=== PATIENT | male | born 1960 | race Caucasian/White ===

== ENCOUNTER 2017-09-07 12:03 | Day surgery (SDC) | payer BC ==
[~2017-09-07] VITALS: Ht 171.4 cm; Wt 98.2 kg
[~2017-09-07 12:03] MED LIST: ADVIL200 MG PO; ANORO ELLIPTA1 EACH INH; CYCLOBENZAPRINE10 MG PO; METAMUCIL1042 GM PO; NORVASC10 MG PO; OMEPRAZOLE40 MG PO; PRAVACHOL20 MG PO; SINGULAIR10 MG PO; ZESTRIL40 MG PO
[2017-09-07] MEDS ORDERED: CORDARONE200 MG PO (12:53)
[2017-09-07] MEDS ORDERED: PLAVIX75 MG PO (12:56)
[2017-09-07] MEDS ORDERED: BAYER CHEWABLE81 MG PO (12:56)
[2017-09-07] MEDS ORDERED: HYDROCHLOROTHIA25 MG PO (12:57)
[2017-09-07] MEDS ORDERED: METOPROLOL TART25 MG PO (12:57)
[2017-09-07] MEDS ORDERED: COUMADIN5 MG PO ×2 (12:58→12:59)
[2017-09-07] MEDS ORDERED: LOVENOX INJ100 MG/ML SC (13:01)
[2017-09-07 13:14] VITALS: BP 95/52; Ht 171.4 cm; Wt 98.2 kg
[2017-09-07 13:18] LABS: HEMATOCRIT 36.4 % (42.0-54.0); HEMOGLOBIN 12.2 g/dL (13.5-17.5); MCH 30.3 pg (26.0-34.0); MCHC 33.5 g/dL (31.0-37.0); MCV 90.3 fL (80.0-100.0); MEAN PLATELET VOLUME 9.3 fL (7.4-10.4); RBC 4.03 10x6/uL (4.20-6.10); RDW 13.2 % (11.5-14.5); WBC 7.1 10x3/uL (4.8-10.8)
[2017-09-07 13:32] LABS: APTT 32.7 SECONDS (22.8-39.4); INR 1.1 (0.85-1.17); PROTIME 14.1 SECONDS (11.6-15.0)
[2017-09-07 13:44] LABS: ANION GAP 11.5 mmol/L (8-16); CALCIUM 8.8 mg/dL (8.5-10.1); CARBON DIOXIDE 26.5 mmol/L (21.0-32.0); CREATININE - SERUM 1.4 mg/dL (0.6-1.3)
--- NOTE | 2017-09-07 14:50 | NUR ---
9 MINUTE WITHDRAWEL TIME.
--- NOTE | 2017-09-07 15:37 | NUR ---
1535 DISCHARGE INSTRUCTIONS COMPLETE. PT HAS NO QUESTIONS OR CONCERNS AT THIS TIME. PT ESCORTED OUT BY VOLUNTEER.
--- NOTE | 2017-09-08 07:24 | OP ---
PATIENT NAME: DAISHA MEYER MEDICAL RECORD: [id number] :56 LOCATION:[facility] ADMISSION DATE: SURGEON: ENEDINA ONTIVEROS DO DATE OF OPERATION: 09/07/2017 PROCEDURE: Colonoscopy. INDICATIONS FOR PROCEDURE: Colorectal cancer screening. SCOPE: Olympus video pediatric colonoscope. MEDICATIONS: Propofol 210 mg IV per anesthesia. WITHDRAWAL TIME: 9 minutes. ESTIMATED BLOOD LOSS: None. COMPLICATIONS: None. FINDINGS: Informed consent was given. The patient was made comfortable with the above medication. After reaching an adequate level of sedation by slow IV push, the patient was placed on his left side. A digital rectal examination was performed and revealed some small external hemorrhoids and a skin tag without any bleeding visualized. The endoscope was then advanced under direct visualization through the rectum to the cecum with visualization of the appendiceal orifice and ileocecal valve. There were no polyps visualized on today's examination. There was rybh-ue-rtmhlkxh diverticulosis present in the descending colon and sigmoid colon. There was no evidence of diverticulitis or bleeding. Retroflexion was performed in the rectum with visualization of small nonbleeding internal hemorrhoids and hypertrophied anal papillae. The endoscope was un-retroflexed and withdrawn from the patient. The patient tolerated the procedure well and there were no complications. IMPRESSION: 1. Mild to moderate diverticulosis of the descending and sigmoid colon. 2. Small nonbleeding internal hemorrhoids. PLAN AND RECOMMENDATIONS: 1. Discharge home when recovery parameters are met. 2. Continue current medications. 3. High fiber diet. 4. Recall colonoscopy in 7-10 years. TRANSINT:[id number] Voice Confirmation ID: [id number] DOCUMENT ID: [id number] ENEDINA ONTIVEROS DO at 0724 CC: [id number] DICTATION DATE: 09/07/17 1454 DIRECTOR INVESTOR RELATIONS: 09/07/17 1510 [facility] 09/07/17 [id number] [place] [address]
== END 2017-09-07 15:35 | disposition home or self-care (01) ==
LOC: D.OPS 12:03
PROVIDERS: Anesthesiology; Internal Medicine Gastroenterology
DX: Z12.11 Encounter for screening for malignant neoplasm of colon (principal); K57.30 Diverticulosis of large intestine without perforation or abscess without bleeding; K64.8 Other hemorrhoids; K64.4 Residual hemorrhoidal skin tags; Z01.812 Encounter for preprocedural laboratory examination

== ENCOUNTER → 2018-09-29 07:49 | Outpatient (CLI) | payer MEDICAID ==
[2017-09-07 13:14] VITALS: BMI 33.4
[~2018-09-29 07:49] MED LIST changes: +BAYER CHEWABLE81 MG PO; +CORDARONE200 MG PO; +COUMADIN5 MG PO; +HYDROCHLOROTHIA25 MG PO; +LOVENOX INJ100 MG/ML SC; +METOPROLOL TART25 MG PO; +PLAVIX75 MG PO
== END | disposition home or self-care (01) ==
LOC: D.US 07:49
DX: R79.89 Other specified abnormal findings of blood chemistry (principal)

== ENCOUNTER 2018-12-05 17:04 | Emergency (ER) | payer MEDICAID ==
[~2018-12-05] VITALS: Ht 171.4 cm; Wt 93.6 kg
[2018-12-05 17:36] VITALS: Ht 171.4 cm; Wt 93.6 kg
[2018-12-05] MEDS ORDERED: LIPITOR40 MG PO (17:39)
[2018-12-05 18:29] LABS: BASOPHILS 0.3 % (0-2); EOSINOPHILS 1.5 % (0-7); HEMATOCRIT 37.6 % (42.0-54.0); HEMOGLOBIN 12.9 g/dL (13.5-17.5); IMMATURE GRANULOCYTES 0.3 % (0-5); LYMPHOCYTES 22.3 % (15-50); MCH 30.9 pg (26.0-34.0); MCHC 34.3 g/dL (31.0-37.0); MEAN PLATELET VOLUME 9.4 fL (7.4-10.4); MONOCYTES 9.5 % (2-11); NEUTROPHILS 66.1 % (40-80); PLATELET COUNT 245 10x3/uL (130-400); RBC 4.18 10x6/uL (4.20-6.10); RDW 12.9 % (11.5-14.5); WBC 8.9 10x3/uL (4.8-10.8)
[2018-12-05 18:39] LABS: APTT 43.9 SECONDS (22.8-39.4); INR 2.78 (0.85-1.17); PROTIME 28.6 SECONDS (11.6-15.0)
[2018-12-05 18:47] LABS: ALBUMIN 2.9 g/dL (3.4-5.0); ALKALINE PHOSPHATASE 104 U/L (46-116); ALT (SGPT) 208 U/L (10-68); BILIRUBIN - TOTAL 0.48 mg/dL (0.2-1.3); CALC OSMOLALITY 273 mosm/kg (275-300); CALCIUM 8.4 mg/dL (8.5-10.1); CARBON DIOXIDE 24.2 mmol/L (21.0-32.0); CHLORIDE - SERUM 100 mmol/L (98-107); CREATININE - SERUM 2.1 mg/dL (0.6-1.3); GLUCOSE 95 mg/dL (74-106); POTASSIUM - SERUM 4.3 mmol/L (3.5-5.1); PROTEIN - SERUM 7.5 g/dL (6.4-8.2); SODIUM 134 mmol/L (136-145); UREA NITROGEN 30 mg/dL (7-18); eGFR NON AFRICAN AMERICAN 34 mL/min (90-120)
[2018-12-05 18:59] LABS: CREATINE KINASE 127 UL (21-232)
[2018-12-05 19:01] LABS: TROPONIN-I < 0.017 ng/mL (0.000-0.060)
[2018-12-05 20:44] VITALS: BP 105/65
== END 2018-12-05 20:45 | disposition home or self-care (01) ==
LOC: D.ER 17:04
PROVIDERS: Family Medicine
DX: I95.2 Hypotension due to drugs (principal); N17.9 Acute kidney failure, unspecified; I25.10 Atherosclerotic heart disease of native coronary artery without angina pectoris; I48.2 Chronic atrial fibrillation

== ENCOUNTER → 2019-02-23 08:09 | Outpatient (CLI) | payer BC ==
[2018-12-05 17:36] VITALS: BMI 31.8
--- NOTE | ~2019-02-23 | EC ---
PATIENT:DAISHA MEYER DATE OF SERVICE: 02/23/19 SEX: M MEDICAL RECORD: [id number] DATE OF : 56 LOCATION:[facility] AGE OF PATIENT: 58 ADMISSION DATE: 02/23/19 REFERRING PHYSICIAN: INTERPRETING PHYSICIAN: LUCINA ROWAN MD ECHOCARDIOGRAM REPORT ECHO CHARGES 4 ECHO COMPLETE Date: 02/23/19 CLINICAL DIAGNOSIS: HTN/AVR H/O CAD/A-FIB ECHOCARDIOGRAPHIC MEASUREMENTS (adult normal given) AC root (d.<3.7cm) 2.9 cm LV Septum d (<1.2 cm> 1.0 cm Valve Excursion 0.9 cm LV Septum (systole) 1.9 cm Left Atria (s.<4.0cm> 4.2 cm LVPW d(<1.2cm) 1.4 cm RV (d.<2.3cm) 3.2 cm LVPW (sytole) 2.3 cm LV diastole(<5.6CM) 6.0 cm MV E-F(>70mm/sec) cm LV systole 3.5 cm LVOT Diameter 2.0 cm MV exc.(>10mm) cm Est.ejection fraction (50-75%) % DOPPLER: LVIT cm/sec A 56.0 cm/sec E 64.0 cm/sec LA cm/sec RVSP 34.4 mmHg LVOT 105 cm/sec AOP1/2T m/s Asc. Ao 212 cm/sec RVOT 48.0 cm/sec RA cm/sec PA 113 cm/sec AV Gradient Peak 18.0 mmHg AV Mean 7.8 mmHg AV Area 1.6 cm MV Gradient Peak 2.2 mmHg MV Mean 0.87 mmHg MV Area cm COMMENTS: OP - HC Medicaid Nurse: 1 RAMIN ELIO Attendant Honor Bar: 3 Dr. Bond TAPE# PACS Pericardial Effusion N DATE OF SERVICE: 02/23/2019 Adequate 2-D echo, color-flow and spectral Doppler, and M-mode. No LVH. LV internal dimensions are dilated. LV is mildly globally hypo with EF at lower limits of normal, mildly reduced. Estimated EF is 45% to 50%. Prosthetic aortic valve, mechanical type, is noted with acceptable Doppler velocity. No significant AI by color-flow imaging. Left atrium is minimally dilated at 4.2 cm. Mitral valve shows no prolapse. Trace MR. Right-sided chambers are grossly normal. Trace TR. ECHOCARDIOGRAM REPORT [id number] DAISHA MEYER TRANSINT:[id number] Voice Confirmation ID: [id number] DOCUMENT ID: [id number] LUCINA ROWAN MD CC: [id number] DICTATION DATE: 02/27/19 1313 PAI GOW MANAGER: 02/27/19 1342 DEP CLI 02/23/19 [facility] [address] [id number]
[~2019-02-23 08:09] MED LIST changes: +LIPITOR40 MG PO
== END | disposition home or self-care (01) ==
LOC: D.HCCARDIO 08:09
PROVIDERS: ATTEND Internal Medicine Interventional Cardiology
DX: I10 Essential (primary) hypertension (principal)

== ENCOUNTER 2019-04-02 06:20 | Outpatient (CLI) | payer MEDICAID ==
[2019-04-02 06:49] LABS: BASOPHILS 0.5 % (0-2); EOSINOPHILS 0.8 % (0-7); HEMOGLOBIN 14.4 g/dL (13.5-17.5); LYMPHOCYTES 16.5 % (15-50); MCH 30.2 pg (26.0-34.0); MCHC 34.3 g/dL (31.0-37.0); MCV 88.1 fL (80.0-100.0); MEAN PLATELET VOLUME 9.3 fL (7.4-10.4); MONOCYTES 10.2 % (2-11); RBC 4.77 10x6/uL (4.20-6.10); WBC 6.4 10x3/uL (4.8-10.8)
[2019-04-02 06:58] LABS: CALC OSMOLALITY 274 mosm/kg (275-300); CALCIUM 8.8 mg/dL (8.5-10.1); CARBON DIOXIDE 26.3 mmol/L (21.0-32.0); CHLORIDE - SERUM 104 mmol/L (98-107); GLUCOSE 102 mg/dL (74-106); PLATELET COUNT 135 10x3/uL (130-400); SODIUM 137 mmol/L (136-145); UREA NITROGEN 15 mg/dL (7-18); eGFR NON AFRICAN AMERICAN 81 mL/min (90-120)
[2019-04-02 07:39] LABS: APTT 39.5 SECONDS (22.8-39.4); INR 1.4 (0.85-1.17); PROTIME 16.6 SECONDS (11.6-15.0)
[2019-04-02 10:27] VITALS: BP 144/71; BMI 30.4
--- NOTE | 2019-04-02 16:00 | NUR ---
1210-RECD FROM IR POST LIVER BIOPSY. ALERT. RESP WITH EASE, DRESSING TO R RIB CAGE AREA DRY AND INTACT-NO BLEEDING OR SWELLING 1215-DOES NOT WANT LUNCH TRAY-JUST SOME SPRITE, GIVEN 1255-R ABD DRSG DRY AND INTACT. 1530-IV D/C, UP TO BATHROOM AND DRESSED 1540-DISCHARGE INSTRUCTIONS REVIEWED. 1545-D/C HOME VIA WHEELCHAIR.
== END 2019-04-02 15:45 | disposition home or self-care (01) ==
LOC: D.CT 06:20
PROVIDERS: General Practice; ATTEND Internal Medicine Gastroenterology
DX: K74.60 Unspecified cirrhosis of liver (principal); G12.9 Spinal muscular atrophy, unspecified; R63.4 Abnormal weight loss

== ENCOUNTER → 2019-04-16 18:28 | Outpatient (CLI) | payer MEDICAID ==
[2019-04-02 10:27] VITALS: BMI 30.4
[2019-04-16 18:06] LABS: ALBUMIN 2.7 g/dL (3.4-5.0); BILIRUBIN - DIRECT 0.25 mg/dL (0.00-0.30); BILIRUBIN - INDIRECT 0.47 mg/dL (0.00-1.00); BILIRUBIN - TOTAL 0.72 mg/dL (0.2-1.3); PROTEIN - SERUM 8.1 g/dL (6.4-8.2)
== END | disposition home or self-care (01) ==
LOC: D.LABREF 18:28
PROVIDERS: ATTEND Internal Medicine Gastroenterology
DX: K74.60 Unspecified cirrhosis of liver (principal); R63.4 Abnormal weight loss

== ENCOUNTER → 2019-04-24 10:09 | Outpatient (CLI) | payer MEDICAID ==
[2019-04-02 10:27] VITALS: BMI 30.4
== END | disposition home or self-care (01) ==
LOC: D.LAB 10:09
PROVIDERS: ATTEND Internal Medicine Gastroenterology
DX: K74.60 Unspecified cirrhosis of liver (principal); R74.8 Abnormal levels of other serum enzymes

== ENCOUNTER → 2019-06-04 10:07 | Outpatient (CLI) | payer MEDICAID ==
[2019-06-05 13:10] LABS: CYTOMEGALOVIRUS AB IGG >10.00 U/mL (0.00-0.59)
[2019-06-05 16:08] LABS: EBV - EARLY ANTIGEN AB IGG <9.0 U/mL (0.0-8.9); EBV VIRAL CAPSID AB IGM 39.5 U/mL (0.0-35.9)
[2019-06-06 16:09] LABS: HSV 1 DNA (PCR) Negative (Negative); HSV 2 DNA (PCR) Negative (Negative)
== END | disposition home or self-care (01) ==
LOC: D.LAB 10:07
PROVIDERS: ATTEND Internal Medicine Gastroenterology
DX: K74.60 Unspecified cirrhosis of liver (principal)

== ENCOUNTER 2019-09-26 18:08 | Inpatient (IN) | payer MEDICAID ==
[~2019-09-26] VITALS: Ht 171.4 cm; Wt 88.5 kg
[2019-09-26] MEDS ORDERED: CORGARD40 MG PO (19:56)
[2019-09-26] MEDS ORDERED: CYCLOBENZAPRINE10 MG PO (19:58)
[2019-09-26] MEDS ORDERED: CHRONULAC30 ML PO (19:59)
[2019-09-26 20:29] LABS: HEMATOCRIT 36.5 % (42.0-54.0); HEMOGLOBIN 12.5 g/dL (13.5-17.5); MCH 31.3 pg (26.0-34.0); MCHC 34.2 g/dL (31.0-37.0); MCV 91.5 fL (80.0-100.0); MEAN PLATELET VOLUME 9.5 fL (7.4-10.4); NEUTROPHILS 74.5 % (40-80); PLATELET COUNT 119 10x3/uL (130-400); RBC 3.99 10x6/uL (4.20-6.10); RDW 14.5 % (11.5-14.5); WBC 10.1 10x3/uL (4.8-10.8)
[2019-09-26 20:46] LABS: INR 2.9 (0.85-1.17); PROTIME 29.6 SECONDS (11.6-15.0)
[2019-09-26 20:47] LABS: APTT 52.4 SECONDS (22.8-39.4)
[2019-09-26 20:54] LABS: CALC OSMOLALITY 269 mosm/kg (275-300); CALCIUM 8.3 mg/dL (8.5-10.1); CARBON DIOXIDE 26.3 mmol/L (21.0-32.0); CHLORIDE - SERUM 103 mmol/L (98-107); CREATININE - SERUM 0.7 mg/dL (0.6-1.3); GLUCOSE 93 mg/dL (74-106); POTASSIUM - SERUM 4.4 mmol/L (3.5-5.1); SODIUM 135 mmol/L (136-145); UREA NITROGEN 13 mg/dL (7-18); eGFR NON AFRICAN AMERICAN > 90 mL/min (90-120)
[2019-09-26 21:00] LABS: ALBUMIN 2.1 g/dL (3.4-5.0); ALKALINE PHOSPHATASE 113 U/L (46-116); ALT (SGPT) 57 U/L (10-68); PROTEIN - SERUM 7.5 g/dL (6.4-8.2)
[2019-09-26 22:31] VITALS: BP 136/67
[2019-09-27] VITALS: BP 140/62
[2019-09-27 00:23] VITALS: BP 140/62; BMI 27.8
--- NOTE | 2019-09-27 00:31 | NUR ---
UNABLE TO REVIEW MED REC. PT IS UNSURE ON ALL HIS DOSAGES OF MEDICATIONS. HIS TOOK HIS MED LIST HOME. SHE WILL BRING THE MED LIST BACK TOMORROW.
[2019-09-27 05:52] LABS: HEMATOCRIT 31.8 % (42.0-54.0); HEMOGLOBIN 11.2 g/dL (13.5-17.5); LYMPHOCYTES 16.4 % (15-50); MCH 32.4 pg (26.0-34.0); MCHC 35.2 g/dL (31.0-37.0); MCV 91.9 fL (80.0-100.0); MEAN PLATELET VOLUME 9.7 fL (7.4-10.4); NEUTROPHILS 70.9 % (40-80); PLATELET COUNT 100 10x3/uL (130-400); RBC 3.46 10x6/uL (4.20-6.10); RDW 14.6 % (11.5-14.5); WBC 8.4 10x3/uL (4.8-10.8)
[2019-09-27 06:17] LABS: ALBUMIN 1.8 g/dL (3.4-5.0); ALKALINE PHOSPHATASE 90 U/L (46-116); ALT (SGPT) 51 U/L (10-68); BILIRUBIN - TOTAL 2.49 mg/dL (0.2-1.3); CALC OSMOLALITY 270 mosm/kg (275-300); CALCIUM 7.7 mg/dL (8.5-10.1); CARBON DIOXIDE 25.1 mmol/L (21.0-32.0); CHLORIDE - SERUM 107 mmol/L (98-107); CREATININE - SERUM 0.7 mg/dL (0.6-1.3); GLUCOSE 88 mg/dL (74-106); POTASSIUM - SERUM 4.2 mmol/L (3.5-5.1); PROTEIN - SERUM 6.5 g/dL (6.4-8.2); SODIUM 136 mmol/L (136-145); UREA NITROGEN 12 mg/dL (7-18); eGFR NON AFRICAN AMERICAN > 90 mL/min (90-120)
--- NOTE | 2019-09-27 07:35 | NUR ---
ASSESSMENT DONE. DENIES NEEDS
[2019-09-27 09:49] VITALS: BP 135/60
--- NOTE | 2019-09-27 11:32 | NUR ---
I have reviewed this patient and I concur with the Shift Assessment completed by the Licensed Practical Nurse today this shift.
[2019-09-27 13:34] VITALS: BMI 27.7
[2019-09-27 13:37] VITALS: BP 159/63
[2019-09-27 17:16] VITALS: BP 159/73
[2019-09-27 20:00] VITALS: BP 126/59
[2019-09-28] VITALS: BP 107/47
[2019-09-28 05:27] LABS: HEMATOCRIT 34.9 % (42.0-54.0); HEMOGLOBIN 11.8 g/dL (13.5-17.5); MCH 31.6 pg (26.0-34.0); MCHC 33.8 g/dL (31.0-37.0); MCV 93.6 fL (80.0-100.0); MEAN PLATELET VOLUME 9.9 fL (7.4-10.4); RBC 3.73 10x6/uL (4.20-6.10); RDW 14.2 % (11.5-14.5)
[2019-09-28 05:48] LABS: ALBUMIN 1.8 g/dL (3.4-5.0); ALKALINE PHOSPHATASE 83 U/L (46-116); ALT (SGPT) 51 U/L (10-68); BILIRUBIN - TOTAL 2.88 mg/dL (0.2-1.3); CALC OSMOLALITY 272 mosm/kg (275-300); CALCIUM 8.1 mg/dL (8.5-10.1); CARBON DIOXIDE 24.1 mmol/L (21.0-32.0); CHLORIDE - SERUM 107 mmol/L (98-107); CREATININE - SERUM 0.7 mg/dL (0.6-1.3); GLUCOSE 85 mg/dL (74-106); POTASSIUM - SERUM 4.3 mmol/L (3.5-5.1); PROTEIN - SERUM 6.6 g/dL (6.4-8.2); SODIUM 137 mmol/L (136-145); UREA NITROGEN 12 mg/dL (7-18); eGFR NON AFRICAN AMERICAN > 90 mL/min (90-120)
[2019-09-28 06:11] LABS: INR 2.77 (0.85-1.17); PROTIME 28.5 SECONDS (11.6-15.0)
[2019-09-28 06:13] LABS: PLATELET COUNT 124 10x3/uL (130-400); WBC 10.7 10x3/uL (4.8-10.8)
[2019-09-28 09:27] VITALS: BP 130/85
[2019-09-28 12:36] VITALS: BP 140/77
[2019-09-28 12:47] LABS: LYMPHOCYTES 18 % (15-50); MONOCYTES 14 % (2-11); NEUTROPHILS 64 % (40-80); PLATELET ESTIMATE NORMAL
--- NOTE | 2019-09-28 12:54 | NUR ---
PT C/O INCREASED SOB AND FEELING VERY WEAK. PS02 READING OF 87 DESPITE RECENT RESP TX. CONTACTED GINNY AND ORDER RECEIVED FOR D DIMER. PT NOTIFIED.
--- NOTE | 2019-09-28 14:24 | NUR ---
CONFIGURATION CONSULTANT NOTIFIED OF D DIMER RESULTS AND ORDER RECEIVED FOR CTA CHEST WITH PE PROTOCOL. ORDER PLACED.
[2019-09-28 20:00] VITALS: BP 129/60
[2019-09-29] VITALS: BP 127/48
[2019-09-29 04:00] VITALS: BP 101/54
[2019-09-29 04:54] LABS: BASOPHILS 0.1 % (0-2); EOSINOPHILS 0 % (0-7); HEMATOCRIT 34.8 % (42.0-54.0); HEMOGLOBIN 11.8 g/dL (13.5-17.5); IMMATURE GRANULOCYTES 0.3 % (0-5); LYMPHOCYTES 5.8 % (15-50); MCH 31.7 pg (26.0-34.0); MCHC 33.9 g/dL (31.0-37.0); MCV 93.5 fL (80.0-100.0); MEAN PLATELET VOLUME 9.5 fL (7.4-10.4); MONOCYTES 8.8 % (2-11); RBC 3.72 10x6/uL (4.20-6.10); RDW 14.3 % (11.5-14.5)
[2019-09-29 04:55] LABS: PLATELET COUNT 161 10x3/uL (130-400); WBC 19.3 10x3/uL (4.8-10.8)
[2019-09-29 05:11] LABS: CALC OSMOLALITY 276 mosm/kg (275-300); CALCIUM 8.5 mg/dL (8.5-10.1); CARBON DIOXIDE 24.6 mmol/L (21.0-32.0); CHLORIDE - SERUM 105 mmol/L (98-107); CREATININE - SERUM 0.8 mg/dL (0.6-1.3); GLUCOSE 99 mg/dL (74-106); POTASSIUM - SERUM 4.6 mmol/L (3.5-5.1); SODIUM 138 mmol/L (136-145); UREA NITROGEN 15 mg/dL (7-18); eGFR NON AFRICAN AMERICAN > 90 mL/min (90-120)
--- NOTE | 2019-09-29 07:00 | NUR ---
RECEIVED REPORT. ASSUMED CARE OF PATIENT. PATIENT SITTING UP IN CHAIR AT BEDSIDE WITH BIPAP MASK ON. PATIENT TACHYPNEA @ 30. PATIENT BIPAP MASK REMOVED AND ASSISTED PATIENT TO GET ONE DRINK OF WATER AND PUT PATIENT BACK ON BIPAP. CALL LIGHT WITHIN REACH.
--- NOTE | 2019-09-29 08:51 | NUR ---
CALLED KRISTIE GROSS AND REPORTED PATIENT WITH DYSPNEA AND ON BIPAP 100% WITH SATS OF 88-89%. CONFIRMED WITH INFECTION CONTROL COORDINATOR THAT PULMONARY WAS CONSULTED AND SEEN THE PATIENT ON 09/28/19. NEW ORDERS RECEIVED TO CALL PULMONARY.
--- NOTE | 2019-09-29 08:54 | NUR ---
RT AT BEDSIDE FOR STAT ABGS
--- NOTE | 2019-09-29 09:04 | NUR ---
Gs COMPLETE. PAGED.
[2019-09-29 09:06] VITALS: BP 107/53
--- NOTE | 2019-09-29 10:16 | NUR ---
RESP DOWN TO 31, RESTING ON BIPAP 100% AT THIS TIME.
[2019-09-29 13:16] VITALS: BP 116/51
--- NOTE | 2019-09-29 14:07 | NUR ---
PULLED PATIENT UP IN BED, SPOKE WITH FAMILY. PAGED AGAIN. CALL LIGHT WTIHIN REACH. NO DISTRESS.
--- NOTE | 2019-09-29 14:20 | NUR ---
NO ANSWER OR CALL BACK FROM DR. KAYE. CALLED PRIMARY AND GOT AN ORDER FOR LASIX 20MG X 1 VIA IV NOW.
--- NOTE | 2019-09-29 14:24 | NUR ---
IV LASIX INITIATED AT THIS TIME.
--- NOTE | 2019-09-29 15:42 | NUR ---
ASSISTED PATIENT TO STAND AND URINATE. 500 ML TO URINAL. PATIENT WITH BIPAP MASK ON AT THIS TIME. CALL LIGHT WITHIN REACH. PATIENT AT BEDSIDE.
--- NOTE | 2019-09-29 19:10 | NUR ---
BEDSIDE REPORT RECEIVED FROM DAY SHIFT, PT CARE ASSUMED. INTRODUCED SELF AND WROTE NAME ON BOARD. PT SITTING UP IN BED, AAOX4, WATCHING TV AND VISITING WITH AT BEDSIDE. ADMINISTERED SCHEDULED LASIX, PER ORDER. REQUESTING WATER AND REQUESTING BEDDING FOR , PROVIDED. DENIES ANY OTHER NEEDS AT THIS TIME. BED IN LOWEST POSITION, SR X2, CALL LIGHT WITHIN REACH. WILL CONTINUE TO MONITOR.
--- NOTE | 2019-09-29 19:13 | NUR ---
HERE FOR ROUNDS.
[2019-09-29 19:54] VITALS: BP 112/55
[2019-09-29 20:00] VITALS: BP 124/58
[2019-09-29 20:33] VITALS: Ht 171.4 cm; Wt 88.5 kg
[2019-09-30] VITALS (21 sets, daily range): BP systolic 88–168; BP diastolic 47–89
[2019-09-30 05:13] LABS: BASOPHILS 0 % (0-2); EOSINOPHILS 0 % (0-7); HEMATOCRIT 33.5 % (42.0-54.0); HEMOGLOBIN 11.4 g/dL (13.5-17.5); IMMATURE GRANULOCYTES 0.3 % (0-5); MCH 32.2 pg (26.0-34.0); MCV 94.6 fL (80.0-100.0); MEAN PLATELET VOLUME 9.7 fL (7.4-10.4); MONOCYTES 4.9 % (2-11); NEUTROPHILS 91.8 % (40-80); PLATELET COUNT 142 10x3/uL (130-400); RBC 3.54 10x6/uL (4.20-6.10); RDW 14.7 % (11.5-14.5); WBC 17.8 10x3/uL (4.8-10.8)
[2019-09-30 05:27] LABS: CALC OSMOLALITY 285 mosm/kg (275-300); CALCIUM 8.9 mg/dL (8.5-10.1); CARBON DIOXIDE 24.8 mmol/L (21.0-32.0); CHLORIDE - SERUM 106 mmol/L (98-107); GLUCOSE 111 mg/dL (74-106); POTASSIUM - SERUM 4.3 mmol/L (3.5-5.1); SODIUM 140 mmol/L (136-145); VANCOMYCIN - TROUGH 7.4 ug/mL (10.0-20.0); eGFR NON AFRICAN AMERICAN 81 mL/min (90-120)
[2019-09-30 05:29] LABS: UREA NITROGEN 29 mg/dL (7-18)
--- NOTE | 2019-09-30 06:16 | NUR ---
RECEIVED CRITICAL LAB OF PTT 70.2 AND INR 8.63 FROM [facility]. CONY CHAPIN APN.
[2019-09-30 06:17] LABS: INR 8.63 (0.85-1.17); PROTIME 70.2 SECONDS (11.6-15.0)
--- NOTE | 2019-09-30 06:34 | NUR ---
REPORTED CRITICAL LAB VALUES FOR PTT AND INR TO KRISTIE CHAPIN. RECEIVED TELEPHONE ORDER TO HOLD COUMADIN AND REDRAW COAGULATION LABS.
--- NOTE | 2019-09-30 08:23 | NUR ---
STAFF NOTED CONCERNS REGARDING PTS OXYGEN STATUS, THEREFORE A RAPID RESPONSE WAS CALLED. PT RESPITATIONS 40-50 TIMES A MIN WITH OXYGEN SATURATION 91% ON 100% BIPAP. PT IS ALERT AND ORIENTED. CHEST XR ORDERED AND EKG OBTAINED. STAFF STATE THIS IS OVERALL NO CHANGE FROM YESTERDAY WHEN DR KAYE SAW THE PT HOWEVER THEY WERE CONCERNED REGARDING THAT THE RESPIRATIONS STILL TRENDING 40-50 TIMES A MIN. SPOKE WITH DR CATHERINE'S AUTOMATIC BEAM WARPER TENDER, LUCA, STATED TO KEEP IN ROOM AND CAN GIVEN PRN ATIVAN 1MG IV Q4H PRN FOR AGGITATION/ANXIETY. FAMILY AT BEDSIDE. VSS.
--- NOTE | 2019-09-30 09:07 | NUR ---
PER LUCA KHAN APRN, SINCE PT IS STILL BREATHING 40-50 TIMES A MIN AND NOW WITH OXYGEN SATURATION TRENDING 88-91% GO AHEAD AND TRANSFER HIM TO ICU. VEGETABLE SORTER NOTIFIED OF THIS.
--- NOTE | 2019-09-30 10:30 | NUR ---
1010-REPORT RECIEVED AT BEDSIDE-PT TRANSPORTED ON NONREBREATHER 100%-SAT-82%-RR 49-PLACED ON BIPAP 100/18/10-RR 44 L LATERAL RALES-R LATERAL DIMINISHED AND [id number] AT THIS TIME -ABLE TO NOD YES AND NO-INSTRUCTION GIVEN TO PT-NO ATTEMPT AT SPEECH-WILL PREVENT BIPAP FROM WORKING CORRECTLY- AND DAUGHTER BROUGHT TO BEDSIDE-FAMILY EDUCATION-NOT TO ENGAGE PT IN CONVERSATION-WILL PREVENT BIPAP TO WORK OPTIMALLY-IF NOTED NON COMPLIANCE BY PT OR FAMILY-VISITING WILL BE SUSPENDED AND RESTRICTED-DIRECTED ONLY ONE VISITOR AT ANY TIME TO PREVENT NON-INTENTIONAL CONVERSATION WITH PT-STRESSED IF IMPROVEMENT NOT OBTAINED WITH BIPAP-WILL CAUSE USAGE OF RESPIRATORY LIFE SUPPORT VENTILATOR-PT AND FAMILY NODDED AGREEMENT-DAUGHTER REMAINS AT BEDSDIE-QUESTIONS ADDRESSED
--- NOTE | 2019-09-30 19:09 | NUR ---
1400-NOTED SAT DECREASED TO 78 -BIPAP MASK AT 100 10/[address] AND SECURED-RR 51-CYANOTIC DISCOLOURATION TO FACIAL-CENTRAL CYANOSIS-STAT ABG DONE-DR DIA NOTIFIED VIA TELEPHONE -ORDER OBTAINED TO INTUBATE-SPOKE WITH AND PT -BOTH NODDED YES IN AGREEMENT-DR MAGALLON NOTIFIED FOR STAT INTUBATION-RT AT BEDSIDE-NOTED ORAL CAVITY SANG DRAINAGE-ET SUCTION-BLOOD CLOT-AND YELLOW MUCUS-VERSED 5 ATOMIDATE 10-VEC 15 AND VERSED 5 GIVEN FOR INTUBATION-SOFT WRIST RESTRAINTS-ATTEMPTED OGT PLACEMENT-NOTED BLOCKAGE AND NASAL SANG DRAINAGE-PORT CXR DONE-NOTIFIED DR AVILA [id number]-ORDER OBTAINED -VIT K 10MG SQ GIVEN-HELD OGT PLACEMENT-DORAN CATH PLACED 16F -CLEAR HOA URINE -FAMILY BROUGHT TO BEDSIDE AND STATUS REPORT GIVEN QUESTIONS ADDRESSED 1630-DR DIA AT BEDSIDE -VENT CHANGES BY DR DIA-DARIN 5-DIPRIVAN AT 78UTR-MUOA-83HEC -SAT 88-ADDED FENTANYL CONTINUOUS-L WRIST-DIPRIVAN AT 20MCG-DR DIA SPOKE WITH -NOTED TRACHEAL DEVIATION TO L SIDE WITH SOFT EDEMATOUS AREA TO RIGHT OF TRACHEA-INR REVIEWED WITH DR DIA AND MADE AWARE 1744-SUCTION REPEATED FOR THICK YELLOW MUCUS-NO BLOOD CLOT NOTED -NO CHANGE IN TRACHEAL DEVIATION 1844-NO CHANGES AT THIS TIME
--- NOTE | 2019-09-30 19:15 | NUR ---
REPORT RECEIVED. ASSESSMENT COMPLETE PER FLOW SHEET. VSS NO NEW CHANGES PT RESTING COMFORTABLY WILL CONTINUE TOMONITOR
--- NOTE | 2019-09-30 21:00 | NUR ---
family at bedside given udpate no new changes will continue to monitor
--- NOTE | 2019-09-30 23:15 | NUR ---
REASSESSMENT COMPLETE PER FLOW SHEET. VSS. NO NEW CHANGES PT RESTING COMFORTABLY WILL CONTINUE TO MONITOR
[2019-10-01] VITALS (40 sets, daily range): BP systolic 80–900; BP diastolic 44–63
--- NOTE | 2019-10-01 01:20 | NUR ---
ORAL ENDOTRACH CARE ADM. NO NEW CHANGES VSS WILL CONTINUE TO MONITOR
--- NOTE | 2019-10-01 03:14 | NUR ---
REASSESSMENT COMPLETE PER FLOW SHEET. VSS. NO NEW CHANGES PT RESTING COMFORTABLY WILL CONTINUE TO MONITOR
[2019-10-01 03:35] LABS: BASOPHILS 0 % (0-2); EOSINOPHILS 0 % (0-7); HEMATOCRIT 31.5 % (42.0-54.0); HEMOGLOBIN 10.3 g/dL (13.5-17.5); IMMATURE GRANULOCYTES 0.3 % (0-5); LYMPHOCYTES 5.3 % (15-50); MCH 31.5 pg (26.0-34.0); MCHC 32.7 g/dL (31.0-37.0); MCV 96.3 fL (80.0-100.0); MEAN PLATELET VOLUME 10.2 fL (7.4-10.4); MONOCYTES 4.1 % (2-11); NEUTROPHILS 90.3 % (40-80); PLATELET COUNT 127 10x3/uL (130-400); RBC 3.27 10x6/uL (4.20-6.10); RDW 14.9 % (11.5-14.5)
[2019-10-01 03:36] LABS: WBC 9.6 10x3/uL (4.8-10.8)
[2019-10-01 03:50] LABS: INR 12.92 (0.85-1.17); PROTIME 96.8 SECONDS (11.6-15.0)
[2019-10-01 03:51] LABS: ALBUMIN 1.6 g/dL (3.4-5.0); ANION GAP 10.1 mmol/L (8-16); BILIRUBIN - TOTAL 1.54 mg/dL (0.2-1.3); CALCIUM 8.8 mg/dL (8.5-10.1); CARBON DIOXIDE 27.2 mmol/L (21.0-32.0); MAGNESIUM - SERUM 2.6 mg/dL (1.8-2.4); PHOSPHOROUS 4.5 mg/dL (2.5-4.9); POTASSIUM - SERUM 4.3 mmol/L (3.5-5.1); PROTEIN - SERUM 6.7 g/dL (6.4-8.2)
[2019-10-01 03:56] LABS: CREATININE - SERUM 1.3 mg/dL (0.6-1.3)
--- NOTE | 2019-10-01 07:09 | NUR ---
report recieved. patient intubated. sedated. no acute distress. fentanyl drip at 100 mcg. propofol at 20 mcg. 45 degree hob. 95% spo2. all lines free of kinks. vss. lab at bedside. pink skin. lema. will continue to monitor patient.
--- NOTE | 2019-10-01 09:15 | NUR ---
Nutrition follow-up: Pt now in ICU, intubated, sedated s/p rapid response Propofol @ 10.8 ml/hr NPO Wt: 180# Labs reviewed Recommend starting Pulmocare @ 25 ml/hr with gradual increase to goal rate of 50 ml/hr with 100 ml H2O flush Q [address]N following.
--- NOTE | 2019-10-01 11:58 | NUR ---
ct done. resp at bedside
--- NOTE | 2019-10-01 12:36 | NUR ---
family at bedside. update given.
--- NOTE | 2019-10-01 13:47 | NUR ---
CONSENT OBTAINED FROM . 1 FFP INFUSING
--- NOTE | 2019-10-01 14:27 | NUR ---
unit of ffp done
--- NOTE | 2019-10-01 14:30 | NUR ---
second unit of ffp started
--- NOTE | 2019-10-01 15:03 | NUR ---
titrated sedation on propofol and turned off fentanyl to see if patient would wake up and follow commands. patient would not follow commands to open eyes but would squeeze both hands with equal strength bilat. moved both feet. patient scooted himself up in bed.
--- NOTE | 2019-10-01 15:05 | NUR ---
per dr hubbard, to not do cvl or put ng tube down until ffp is done.
--- NOTE | 2019-10-01 15:33 | NUR ---
unit of ffp done
--- NOTE | 2019-10-01 16:33 | NUR ---
dr juanjo cobb
--- NOTE | 2019-10-01 17:06 | MORECARE ---
CASE MANAGEMENT DISCHARGE SUMMARY PATIENT: DAISHA MEYER UNIT: [id number] ADM DATE: 09/26/19 AGE: 59 : 56 SEX: M ROOM/BED: D.2310 AUTHOR: NIKA,DOC PHYSICIAN: REFERRING PHYSICIAN: JAMES CLARK MD DATE OF SERVICE: 10/01/19 Discharge Plan Patient Name: DAISHA MEYER Facility: [facility]:Thelma : 1960 Planned Disposition: Home Anticipated Discharge Date: Discharge Date: Expected LOS: Initial Reviewer: [email or web address] Initial Review Date: 10/01/2019 Generated: 10/01/19 6:05 pm Comments DCP- Discharge Planning Updated by [email or web address]: Ida Schrader on 10/01/19 4:[address] Patient Name: DAISHA MEYER Admission Status: ER Accout number: [id number] Admission Date: 09-26-2019 : 1960 Admission Diagnosis: Attending: NADIRA Current LOS: 5 Anticipated DC Date: Planned Disposition: Home Primary Insurance: [place] [employer] [facility] Discharge Planning Comments: CM met with patient's spouse Paola at bedside after explaining CM role and obtaining verbal consent. Patient lives at home with his where he is independent with his care and plans to return there upon discharge. Patient feels this would be a safe discharge. CM discussed availability / needs of home health and medical equipment. Patient's uncertain of any discharge needs at this time. Patient will have his family drive him home upon discharge. CM will continue to follow and assist as needed with discharge planning / needs. Mail Weigher: Ida Schrader DCPIA - Discharge Planning Initial Assessment Updated by [email or web address]: Ida Schrader on 10/01/19 5:03 pm * How many steps to enter\exit or inside your home? * PCP EDUARDO * Pharmacy [facility] [address] * Preadmission Environment Home with Family * ADLs Independent * Equipment None * List name and contact numbers for known caregivers / representatives who currently or will assist patient after discharge: PAOLA MEYER - SPOUSE - [phone] * Verbal permission to speak to the caregivers and representatives has been obtained from the patient. N/A * Community resources currently utilized None * Additional services required to return to the preadmission environment? No * Can the patient safely return to the preadmission environment? Yes * Has this patient been hospitalized within the prior 30 days at any hospital? No Patient Name: DAISHA MEYER Page [phone] at 1706 All edits/amendments must be made on the electronic document DICTATION DATE: 10/01/191704 UNDERWRITING INTERNSHIP: REYNOLD 10/01/191704 RPT#: [id number] DC DATE: STATUS: ADM IN [facility] [address] [place] [address] END OF REPORT
--- NOTE | 2019-10-01 17:14 | NUR ---
family at [facility]. update given. attempted to put down ng twice but blood came back out with ng. due to patients inr and pt and ptt will not attempt to try again. patient suctioned after.
--- NOTE | 2019-10-01 17:17 | NUR ---
paged dr geiger again
--- NOTE | 2019-10-01 17:18 | NUR ---
dr hubbard paged to tell about ng
--- NOTE | 2019-10-01 17:23 | NUR ---
spoke with dr hubbard said to not go ng but do og. but told him i tried that and that blood came up .
--- NOTE | 2019-10-01 17:31 | NUR ---
paged dr geiger for cvl palcement again
--- NOTE | 2019-10-01 17:47 | NUR ---
dr geiger answered pageer and stated to obtain consent. consent in chart
[2019-10-01 18:22] LABS: BASOPHILS 0 % (0-2); EOSINOPHILS 0 % (0-7); HEMATOCRIT 31.6 % (42.0-54.0); HEMOGLOBIN 10.2 g/dL (13.5-17.5); IMMATURE GRANULOCYTES 0.3 % (0-5); LYMPHOCYTES 6.9 % (15-50); MCH 31.4 pg (26.0-34.0); MCHC 32.3 g/dL (31.0-37.0); MCV 97.2 fL (80.0-100.0); MEAN PLATELET VOLUME 10.1 fL (7.4-10.4); MONOCYTES 5.4 % (2-11); NEUTROPHILS 87.4 % (40-80); PLATELET COUNT 109 10x3/uL (130-400); RBC 3.25 10x6/uL (4.20-6.10); RDW 14.7 % (11.5-14.5); WBC 7.8 10x3/uL (4.8-10.8)
[2019-10-01 18:43] LABS: INR 2.78 (0.85-1.17); PROTIME 28.6 SECONDS (11.6-15.0)
--- NOTE | 2019-10-01 19:15 | NUR ---
REPORT RECEIVED. ASSESSMENT COMPLETE PER FLOW SHEET. VSS. NO NEW CHANGES. PT RESTING COMFORTABLY ORAL ENDOTRACH CARE ADM. WILL CONTINUE TO MONITOR
--- NOTE | 2019-10-01 21:30 | NUR ---
FAMILY CALLED GIVEN UPDATE. NO NEW CHANGES PT RESTING COMFORTABLY WILL COTIUE TO MONITOR
--- NOTE | 2019-10-01 23:29 | NUR ---
REASSESSMENT COMPLETE, NO CHANGES NOTED, PT RESTING AT THIS TIME, REPOSITIONED FOR COMFORT, ORAL CARE PROVIDED
[2019-10-02] VITALS (24 sets, daily range): BP systolic 106–136; BP diastolic 59–70
--- NOTE | 2019-10-02 01:10 | NUR ---
ORAL EDNOTRACH CARE ADM REPOSITIONED FOR COMFORT. WILL CONTINUE TO MONITOR
--- NOTE | 2019-10-02 03:00 | NUR ---
REASSESSMENT COMPLETE PER FLOW SHEET. VSS. NO NEW CHANGES PT RESTING COMFORTABLY WILL CONTINUE TO MONITOR
[2019-10-02 04:26] LABS: BASOPHILS 0 % (0-2); EOSINOPHILS 0 % (0-7); HEMATOCRIT 34.2 % (42.0-54.0); HEMOGLOBIN 11.1 g/dL (13.5-17.5); IMMATURE GRANULOCYTES 0.3 % (0-5); LYMPHOCYTES 5.8 % (15-50); MCH 31.4 pg (26.0-34.0); MCHC 32.5 g/dL (31.0-37.0); MCV 96.9 fL (80.0-100.0); MEAN PLATELET VOLUME 10.4 fL (7.4-10.4); MONOCYTES 7.8 % (2-11); NEUTROPHILS 86.1 % (40-80); PLATELET COUNT 123 10x3/uL (130-400); RBC 3.53 10x6/uL (4.20-6.10); RDW 14.7 % (11.5-14.5); WBC 7.6 10x3/uL (4.8-10.8)
[2019-10-02 04:30] LABS: INR 2.31 (0.85-1.17); PROTIME 24.7 SECONDS (11.6-15.0)
[2019-10-02 04:47] LABS: ALBUMIN 1.8 g/dL (3.4-5.0); BILIRUBIN - TOTAL 1.46 mg/dL (0.2-1.3); CALCIUM 8.9 mg/dL (8.5-10.1); CARBON DIOXIDE 28.5 mmol/L (21.0-32.0); CREATININE - SERUM 1.4 mg/dL (0.6-1.3)
[2019-10-02 04:50] LABS: POTASSIUM - SERUM 3.5 mmol/L (3.5-5.1)
--- NOTE | 2019-10-02 05:00 | NUR ---
COMPLETE BB LINEN CHANGE ADM.
--- NOTE | 2019-10-02 07:07 | NUR ---
patient sedated. lying in bed hob 30. r ij cvl propofol at 15. patient awakens upon speech. hr is 47. vss. will continue to montor.bed low and lcoked. call light within reach. pain 0 on dowell scale. patient agitated when awakened. no acute distress. lema on bedside free of kinks and off floor. patient restrained. bilat expiratory and inspiratory wheezes heard of auscultation. jvd seen bilat. pulses palp bilat in all extremities.
--- NOTE | 2019-10-02 09:59 | NUR ---
HAD QUESTIONS REGARDING HEART ECHO. READ RESULTS FROM ECHO ON Sep. EF OF 50-55%.
--- NOTE | 2019-10-02 11:30 | NUR ---
FAMILY AT BEDSIDE AWAITING DR PARRISH AND DR DIA
--- NOTE | 2019-10-02 13:00 | NUR ---
OGT IN PLACE PER DR DIA
--- NOTE | 2019-10-02 15:30 | NUR ---
ORAL CARE PROVIDED. RESPOSITIONED. SEDATION VACATION AT THIS TIME. NO ACUTE DISTRESS. PATIENT AGITATED SO SEDATION VACATION LASTED ONLY 10 MINUTES. WILL COTSAURAVNUE TO MONITOR
--- NOTE | 2019-10-02 17:00 | NUR ---
sedation increased because patient is agitated. no acute distress. turned. oral care provided. vss. will continue to monitor. bed low and locked. expiratory and inspiratory wheezes heard bilat. pulses palp. patient warm but no fever. uncovered and turned temp down will place ice packs.
--- NOTE | 2019-10-02 19:00 | NUR ---
SHIFT ASSESSMENT COMPLETED. PT CARE ASSUMED, MONITORS ON AND WORKING,VITALS STABLE, PT SEDATED ON VENT, SINUS PATTY ON MONITOR, DORAN STAT LOCKED IN PLACE. SEE FLOW SHEET FOR FURTHER DETAILS. WILL CONTINUE TO OBSERVE.
--- NOTE | 2019-10-02 21:00 | NUR ---
PT TURNED AND REPOSITIONED FOR COMFORT, MONITORS ON AND WORKING, VITALS STABLE, ORAL CARE PROVIDED AT THIS TIME, NO SIGNS/SYMPTOMS OF PAIN OR DISCOMFORT NOTED AT THIS TIME, WILL CONTINUE TO OBSERVE.
--- NOTE | 2019-10-02 23:00 | NUR ---
NO CHANGES, PT TURNED AND REPOSITIONED FOR COMFORT, MONITORS ON AND WORKING, VITALS STABLE, SEE FLOW SHEET FOR FURTHER DETAILS. WILL CONTINUE TO OBSERVE.
[2019-10-03] VITALS (24 sets, daily range): BP systolic 113–144; BP diastolic 60–73
--- NOTE | 2019-10-03 01:00 | NUR ---
MONITORS ON AND WORKING, PT CONTINUES TO BE SINUS PATTY, PT TURNED AND REPOSITIONED FOR COMFORT. WILL CONTINUE TO OBSERVE.
--- NOTE | 2019-10-03 03:00 | NUR ---
NO CHNAGES, SEE FLOW SHEET FOR FURTHER DETAILS. WILL CONTINUE TO OBSERVE.
[2019-10-03 04:16] LABS: BASOPHILS 0 % (0-2); EOSINOPHILS 0 % (0-7); HEMATOCRIT 33.5 % (42.0-54.0); HEMOGLOBIN 10.9 g/dL (13.5-17.5); IMMATURE GRANULOCYTES 0.3 % (0-5); LYMPHOCYTES 5.1 % (15-50); MCH 31.6 pg (26.0-34.0); MCHC 32.5 g/dL (31.0-37.0); MCV 97.1 fL (80.0-100.0); MEAN PLATELET VOLUME 10.2 fL (7.4-10.4); MONOCYTES 6.5 % (2-11); NEUTROPHILS 88.1 % (40-80); PLATELET COUNT 111 10x3/uL (130-400); RBC 3.45 10x6/uL (4.20-6.10); RDW 14.7 % (11.5-14.5); WBC 7.3 10x3/uL (4.8-10.8)
[2019-10-03 04:35] LABS: ALBUMIN 1.7 g/dL (3.4-5.0); ALKALINE PHOSPHATASE 86 U/L (46-116); ALT (SGPT) 39 U/L (10-68); BILIRUBIN - TOTAL 1.45 mg/dL (0.2-1.3); CALCIUM 8.5 mg/dL (8.5-10.1); CARBON DIOXIDE 29.4 mmol/L (21.0-32.0); CHLORIDE - SERUM 113 mmol/L (98-107); GLUCOSE 141 mg/dL (74-106); PHOSPHOROUS 2.4 mg/dL (2.5-4.9); PROTEIN - SERUM 6.3 g/dL (6.4-8.2); SODIUM 148 mmol/L (136-145)
[2019-10-03 04:40] LABS: CALC OSMOLALITY 309 mosm/kg (275-300); CREATININE - SERUM 0.9 mg/dL (0.6-1.3); POTASSIUM - SERUM 4.2 mmol/L (3.5-5.1); UREA NITROGEN 52 mg/dL (7-18); eGFR NON AFRICAN AMERICAN > 90 mL/min (90-120)
--- NOTE | 2019-10-03 05:00 | NUR ---
NO CHNAGES, PT TURNED AND REPOSITIONED FOR COMFORT, TUBE FEEDS STARTED EARLIER THIS SHIFT, PT TOLERATING WELL, PTS DAUGHTER CALLED, PROVIDED PASSWORD AND UPDATE WAS PROVIDED, NO SIGNS/SYMPTOMS OF PAIN OR DISCOMFORT NOTED AT THIS TIME, WILL CONTINUE TO OBSERVE.
[2019-10-03 06:37] LABS: APTT 31.4 SECONDS (22.8-39.4); INR 2.12 (0.85-1.17); PROTIME 23.8 SECONDS (11.6-15.0)
--- NOTE | 2019-10-03 07:07 | NUR ---
patient report recieved from hilario mccall. patient turned. patient bottom examined. patients bottom is very red bearly blanchable. two pillows stuffed under patient. no acutes distress. vss. hr in 40's. monitoring. bilat wheezes in upper lobes and diminished lower lobes. palp pulses bilat in upper and lower extremities. restrained. blue face. bed low and locked. leona light with inreach. bedsdie table within reach. will continue to monitor
--- NOTE | 2019-10-03 09:23 | NUR ---
NUTRITION F/U PT SEDATED ON VENT. PULMOCARE TUBE FEEDS AT 20 CC/HR WITH CURRENT GOAL RATE 40 CC/HR. MAY BENEFIT FROM GOAL RATE 50 CC/HR TO MEET NUTRITIONAL NEEDS. RD FOLLOWING
--- NOTE | 2019-10-03 10:48 | NUR ---
residual check 10 ml
--- NOTE | 2019-10-03 12:34 | NUR ---
per caio brim welt sewing machine operator, decreased ns to 25ml/hr
--- NOTE | 2019-10-03 15:36 | NUR ---
RESIDUAL CHECK 10ML AT THIS TIME.
--- NOTE | 2019-10-03 17:00 | NUR ---
chg bath and linen change done at this time
--- NOTE | 2019-10-03 17:30 | NUR ---
cvp started per dr hubbard.
--- NOTE | 2019-10-03 17:53 | NUR ---
at bedside. update given.
--- NOTE | 2019-10-03 18:45 | NUR ---
dr dhillon at bedside. udpate given. no orders
--- NOTE | 2019-10-03 19:00 | NUR ---
VS STABLE. WILL CONTINUE TO MONITOR.
--- NOTE | 2019-10-03 21:00 | NUR ---
VS STABLE. WILL CONTINUE TO MONITOR.
--- NOTE | 2019-10-03 23:00 | NUR ---
VS STABLE. WILL CONTINUE TO MONITOR.
[2019-10-04] VITALS (24 sets, daily range): BP systolic 127–163; BP diastolic 64–81
--- NOTE | 2019-10-04 01:00 | NUR ---
VS STABLE. WILL CONTINUE TO MONITOR.
--- NOTE | 2019-10-04 03:00 | NUR ---
VS STABLE. WILL CONTINUE TO MONITOR.
--- NOTE | 2019-10-04 05:00 | NUR ---
VS STABLE. WILL CONTINUE TO MONITOR.
[2019-10-04 06:03] LABS: BASOPHILS 0 % (0-2); EOSINOPHILS 0 % (0-7); HEMATOCRIT 35.1 % (42.0-54.0); HEMOGLOBIN 11.1 g/dL (13.5-17.5); IMMATURE GRANULOCYTES 0.4 % (0-5); LYMPHOCYTES 4.5 % (15-50); MCH 31.4 pg (26.0-34.0); MCHC 31.6 g/dL (31.0-37.0); MEAN PLATELET VOLUME 10.1 fL (7.4-10.4); MONOCYTES 6.1 % (2-11); PLATELET COUNT 102 10x3/uL (130-400); RBC 3.53 10x6/uL (4.20-6.10); RDW 14.6 % (11.5-14.5); WBC 7.4 10x3/uL (4.8-10.8)
[2019-10-04 06:09] LABS: MCV 99.4 fL (80.0-100.0)
[2019-10-04 06:19] LABS: INR 3.07 (0.85-1.17); PROTIME 30.9 SECONDS (11.6-15.0)
[2019-10-04 06:29] LABS: ALBUMIN 1.7 g/dL (3.4-5.0); ALKALINE PHOSPHATASE 115 U/L (46-116); BILIRUBIN - DIRECT 0.78 mg/dL (0.00-0.30); BILIRUBIN - INDIRECT 0.57 mg/dL (0.00-1.00); BILIRUBIN - TOTAL 1.35 mg/dL (0.2-1.3); CALC OSMOLALITY 313 mosm/kg (275-300); CALCIUM 8.7 mg/dL (8.5-10.1); CARBON DIOXIDE 30.4 mmol/L (21.0-32.0); CREATININE - SERUM 0.9 mg/dL (0.6-1.3); GLUCOSE 154 mg/dL (74-106); MAGNESIUM - SERUM 2.8 mg/dL (1.8-2.4); PHOSPHOROUS 2.5 mg/dL (2.5-4.9); POTASSIUM - SERUM 4.5 mmol/L (3.5-5.1); PROTEIN - SERUM 6.5 g/dL (6.4-8.2); SODIUM 151 mmol/L (136-145); UREA NITROGEN 43 mg/dL (7-18); eGFR NON AFRICAN AMERICAN > 90 mL/min (90-120)
[2019-10-04 06:35] LABS: ALT (SGPT) 58 U/L (10-68)
[2019-10-04 06:36] LABS: CHLORIDE - SERUM 117 mmol/L (98-107)
--- NOTE | 2019-10-04 08:45 | NUR ---
rajiv estrada at bedside. sodium increasing, new orders given. 1/2 ns at 25ml/hr.
--- NOTE | 2019-10-04 09:01 | NUR ---
NUTRITION F/U PT REMAINS SEDATED ON VENT. TOLERATING PULMOCARE AT 40 CC/HR. WILL CONTINUE TO PROVIDE PULMOCARE, MONITOR PT PROGRESS. RD FOLLOWING
--- NOTE | 2019-10-04 11:00 | NUR ---
LYING IN BED ON VENT AT THIS TIME. VSS. NO ACUTE DISTRESS NOTED. BED ALARM ON. RESIDUAL 5ML. WILL CONTINUE PLAN OF CARE.
--- NOTE | 2019-10-04 11:00 | NUR ---
WILL SPEAK WITH PHYSICIANS OF COAG LEVELS BEFORE ADMIN LOVENOX.
--- NOTE | 2019-10-04 12:14 | NUR ---
PER DR DAI, HOLD LOVENOX IF INR IS ABOVE 2.5. WILL HOLD THIS DOSE PER ORDERS.
--- NOTE | 2019-10-04 14:42 | NUR ---
FAMILY AT BEDSIDE AT THIS TIME. NO ACUTE DISTRESS NOTED. VSS. WILL CONTINUE PLAN OF CARE.
--- NOTE | 2019-10-04 15:55 | NUR ---
OGT TUBE FEEDING RESIDUAL IS 5ML.
--- NOTE | 2019-10-04 17:42 | NUR ---
LYING IN BED ON VENT AT THIS TIME. VSS. NO ACUTE DISTRESS NOTED. TURNED Q2H. ORAL CARE PROVIDED Q2H. WILL CONTINUE PLAN OF CARE.
--- NOTE | 2019-10-04 19:00 | NUR ---
SHIFT ASSESSMENT COMPLETE. VS STABLE. NO VISUAL CUES OF DISTRESS NOTED. WILL CONTINUE TO MONITOR.
[2019-10-05] VITALS (22 sets, daily range): BP systolic 47–157; BP diastolic 57–76
[2019-10-05 05:26] LABS: BASOPHILS 0 % (0-2); EOSINOPHILS 0 % (0-7); HEMATOCRIT 35.3 % (42.0-54.0); IMMATURE GRANULOCYTES 0.4 % (0-5); MCH 31.3 pg (26.0-34.0); MCHC 31.2 g/dL (31.0-37.0); MCV 100.3 fL (80.0-100.0); MEAN PLATELET VOLUME 10.6 fL (7.4-10.4); MONOCYTES 5.3 % (2-11); NEUTROPHILS 90.3 % (40-80); PLATELET COUNT 101 10x3/uL (130-400); RBC 3.52 10x6/uL (4.20-6.10); RDW 14.9 % (11.5-14.5)
[2019-10-05 05:56] LABS: CALC OSMOLALITY 314 mosm/kg (275-300); CALCIUM 8.6 mg/dL (8.5-10.1); CARBON DIOXIDE 31.9 mmol/L (21.0-32.0); CREATININE - SERUM 0.9 mg/dL (0.6-1.3); GLUCOSE 155 mg/dL (74-106); PHOSPHOROUS 2.8 mg/dL (2.5-4.9); POTASSIUM - SERUM 5.1 mmol/L (3.5-5.1); SODIUM 152 mmol/L (136-145); UREA NITROGEN 41 mg/dL (7-18); eGFR NON AFRICAN AMERICAN > 90 mL/min (90-120)
[2019-10-05 06:00] LABS: CHLORIDE - SERUM 118 mmol/L (98-107)
--- NOTE | 2019-10-05 07:00 | NUR ---
REPORT RECEVIED FROM THE OFF GOING RN. SEE ASSESSMENT IN THE PTS FLOW SHEET. PT SEDATED ON THE VENT. 8.0 ETT NOTED 26 AT THE LIP. VENT: AC 20, 500, 50% PEEP 7. BREAKSOUNDS EQUAL WITH CRACKLES NOTED. BRADYCARDIA NOTED 50 BPM BP STABLE. RIGHT IJ CVL NOTED. SEE IV FLUIDS IN FLOW SHEET. OGT NOTED. PATENCY CHECKED VIA A&A WITH <10ML OF RESIDUAL NOTED. PULM TUBE FEEDING AT 40ML/H FC NOTED WITH CLEAR, YELLOW URINE. CALL LIGHT IN REACH. WILL CONT POC.
--- NOTE | 2019-10-05 08:43 | NUR ---
LUCA RACING SECRETARY AND HANDICAPPER AT THE PTS BEDSIDE.
[2019-10-05 08:44] LABS: INR 3.27 (0.85-1.17); PROTIME 32.5 SECONDS (11.6-15.0)
--- NOTE | 2019-10-05 10:46 | NUR ---
SMALL FECAL SMEAR ON BED SHEET NOTED. BED LINENS CHANGED AND PT CLEANED. WILL CONT POC.
--- NOTE | 2019-10-05 11:00 | NUR ---
REASSESSMENT COMPLETED. SEE FLOW SHEET.
--- NOTE | 2019-10-05 11:45 | NUR ---
TUBEFEEDING BAG CHANGED. OGT PATENCY RECHECKED VIA A&A WITH NO RESIDUAL. WILL CONT POC.
--- NOTE | 2019-10-05 19:00 | NUR ---
REPORT RECEIVED INITIAL ASSESSMENT COMPLETE. PT SEDATED NO RESPONSE TO PAINFUL STIMULI MD AWARE. ORALLY INTUBATED SEE RESP THERAPIST NOTES FOR VENT CHANGES. CM READING SR WITHOUT ECTOPY ALARMS ON AND AUDIBLE. PT HAS RIGHT IJ CENTRAL IV WITH CVP ZEROED AND CALIBRATED READING OF 9. SEDATED WITH DIPRIVAN. RIGHT NECK CLOSE TO IJ LINE SWOLLEN AND PULSATING AND MD'S AWARE. GOOD BLOOD RETURN AND FLUSHES EASILY. PT RECEIVING TUBE FEEDING VIA OGT 5 CC OF RESIDUAL OBTAINED AND RETURNED. FACE CHEEKS NOSE DISCOLORED BLUISH TINT PER REPORT FROM DAY SHIFT NURSE THIS DISCOLORATION IS FROM SIDE EFFECT OF AMIODARONE TOXICITY WHICH PT IS NOT RECEIVING AT THIS TIME. BED IN LOW POSITION SIDE RAILS UP TIMES 3. VSS AT THIS TIME WILL CONTINUE TO MONITOR
--- NOTE | 2019-10-05 20:00 | NUR ---
FAMILY AT BEDSIDE FOR VISITATION UPDATE GIVEN AND QUESTIONS ANSWERED. PTS AND DAUGHTER. WHEN ASKED HOW LONG PT HAS HAD THE FACIAL DISCOLORATION PTS STATED FOR SEVERAL WEEKS AND THAT DR HAD MADE SOME MED CHANGES AROUND AND SHE WAS NOT SURE BUT THOUGHT THAT THE DR HAD TAKEN PT OFF OF AMIODARONE BUT SHE WAS NOT SURE.
--- NOTE | 2019-10-05 20:35 | NUR ---
PT GIVEN TYLENOL VIA OGT FOR TEMP
--- NOTE | 2019-10-05 22:15 | NUR ---
INCONTINENT OF BOWEL LARGE LIQUID BROWN STOOL COMPLETE CHG BATH COMPLETE LINEN CHANGE
--- NOTE | 2019-10-05 23:00 | NUR ---
REASSESSMENT COMPLETE. VSS CPOC WILL CONTINUE TO MONITOR REPOSITIONED FOR COMFORT
[2019-10-06] VITALS (24 sets, daily range): BP systolic 124–164; BP diastolic 61–84
--- NOTE | 2019-10-06 03:00 | NUR ---
REASSESSMENT COMPLETE CPOC
--- NOTE | 2019-10-06 05:00 | NUR ---
PT HAD LARGE LIQUID BROWN STOOL COMPLETE CHG BATH AND COMPLETE LINEN CHANGE
[2019-10-06 06:07] LABS: BASOPHILS 0 % (0-2); EOSINOPHILS 0 % (0-7); HEMATOCRIT 35.8 % (42.0-54.0); HEMOGLOBIN 11.3 g/dL (13.5-17.5); IMMATURE GRANULOCYTES 0.6 % (0-5); LYMPHOCYTES 5.3 % (15-50); MCH 31.3 pg (26.0-34.0); MCHC 31.6 g/dL (31.0-37.0); MCV 99.2 fL (80.0-100.0); MEAN PLATELET VOLUME 10.6 fL (7.4-10.4); MONOCYTES 6.3 % (2-11); NEUTROPHILS 87.8 % (40-80); PLATELET COUNT 93 10x3/uL (130-400); RBC 3.61 10x6/uL (4.20-6.10); RDW 14.6 % (11.5-14.5); WBC 8.4 10x3/uL (4.8-10.8)
[2019-10-06 06:24] LABS: APTT 33.7 SECONDS (22.8-39.4); INR 2.95 (0.85-1.17)
[2019-10-06 06:42] LABS: ALBUMIN 1.9 g/dL (3.4-5.0); ALKALINE PHOSPHATASE 110 U/L (46-116); ALT (SGPT) 92 U/L (10-68); BILIRUBIN - TOTAL 1.21 mg/dL (0.2-1.3); CALC OSMOLALITY 303 mosm/kg (275-300); CHLORIDE - SERUM 113 mmol/L (98-107); CREATININE - SERUM 0.9 mg/dL (0.6-1.3); GLUCOSE 154 mg/dL (74-106); MAGNESIUM - SERUM 2.6 mg/dL (1.8-2.4); PHOSPHOROUS 3.4 mg/dL (2.5-4.9); SODIUM 147 mmol/L (136-145); UREA NITROGEN 39 mg/dL (7-18); eGFR NON AFRICAN AMERICAN > 90 mL/min (90-120)
[2019-10-06 06:43] LABS: PLATELET ESTIMATE DECREASED
--- NOTE | 2019-10-06 07:00 | NUR ---
BEDSIDE REPORT RECEIVED. SHIFT ASSESSMENT COMPLETED PER FLOWSHEET, SEE FLOWSHEET FOR INFORMATION. VSS. NO ACUTE NEEDS OR DISTRESS NOTED AT THIS TIME. WILL CONT TO MONITOR.
--- NOTE | 2019-10-06 09:00 | NUR ---
PT FAMILY CALLED, UPDATE GIVEN. VSS. NO ACUTE NEEDS OR DISTRESS NOTED AT THIS TIME. WILL CONT TO MONITOR.
--- NOTE | 2019-10-06 10:10 | NUR ---
PT AT BEDSIDE, UPDATE GIVEN. NO ACUTE NEEDS OR DISTRESS NOTED AT THIS TIME. VSS. WILL CONT TO MONITOR.
--- NOTE | 2019-10-06 11:00 | NUR ---
REPOSITIONED PER COMFORT. REASSESSMENT COMPLETED PER FLOWSHEET, SEE FLOWSHEET FOR INFORMATION. WILL CONT TO MONITOR.
--- NOTE | 2019-10-06 12:20 | NUR ---
AT BEDSIDE. WILL CONT TO MONITOR.
--- NOTE | 2019-10-06 13:00 | NUR ---
ORAL CARE GIVEN PER COMFORT. WILL CONT TO MONITOR.
--- NOTE | 2019-10-06 13:56 | NUR ---
PT DAUGHTER CALLED, UPDATE GIVEN. WILL CONT TO MONITOR.
--- NOTE | 2019-10-06 15:00 | NUR ---
REASSESSMENT COMPLETED PER FLOWSHEET, SEE FLOWSHEET FOR INFORMATION. NO ACUTE NEEDS OR DISTRESS NOTED AT THIS TIME. WILL CONT TO MONITOR.
--- NOTE | 2019-10-06 17:00 | NUR ---
PT AT BEDSIDE. UPDATE GIVEN. NO ACUTE NEEDS OR DISTRESS NOTED AT THIS TIME. VSS. WILL CONT TO MONITOR.
--- NOTE | 2019-10-06 19:00 | NUR ---
REPORT RECEIVED ASSESSMENT COMPLETE. PT SEDATED DOES WITHDRAW FROM PAINFULS STIMULI. CM READING SB WITHOUT ECTOPY. BLUISH DISCOLORIZATION TO FACE CHEEKS NOSE PER SHIFT REPORT FROM [facility]. RIGHT IJ CENTRAL LINE CVP ZEROED AND CALIBRATED READING OF 10. SEE IV FLOWSHEET AND EMAR FOR MEDS AND IV FLUIDS. VSS WILL CONTINUE TO MONITOR
--- NOTE | 2019-10-06 20:00 | NUR ---
DAUGHTER AT BEDSIDE FOR VISITATION
--- NOTE | 2019-10-06 23:00 | NUR ---
REASSESSMENT COMPLETE NO CHANGES
[2019-10-07] VITALS (24 sets, daily range): BP systolic 126–157; BP diastolic 8–93
--- NOTE | 2019-10-07 03:00 | NUR ---
REASSESSMENT COMPLETE SEE FLOWSHEET
--- NOTE | 2019-10-07 05:00 | NUR ---
PARTIAL BATH LINEN CHANGE NGT HAD DISCONNECTED.
[2019-10-07 05:56] LABS: BASOPHILS 0 % (0-2); EOSINOPHILS 0 % (0-7); HEMATOCRIT 36.1 % (42.0-54.0); HEMOGLOBIN 11.6 g/dL (13.5-17.5); IMMATURE GRANULOCYTES 0.7 % (0-5); LYMPHOCYTES 3.4 % (15-50); MCH 31.3 pg (26.0-34.0); MCHC 32.1 g/dL (31.0-37.0); MCV 97.3 fL (80.0-100.0); MONOCYTES 7.4 % (2-11); NEUTROPHILS 88.5 % (40-80); PLATELET COUNT 80 10x3/uL (130-400); RBC 3.71 10x6/uL (4.20-6.10); RDW 14.2 % (11.5-14.5); WBC 10.3 10x3/uL (4.8-10.8)
[2019-10-07 06:38] LABS: ALKALINE PHOSPHATASE 118 U/L (46-116); ALT (SGPT) 92 U/L (10-68); BILIRUBIN - DIRECT 0.57 mg/dL (0.00-0.30); BILIRUBIN - INDIRECT 0.88 mg/dL (0.00-1.00); BILIRUBIN - TOTAL 1.45 mg/dL (0.2-1.3); CALC OSMOLALITY 296 mosm/kg (275-300); CALCIUM 8.2 mg/dL (8.5-10.1); CARBON DIOXIDE 30.9 mmol/L (21.0-32.0); CHLORIDE - SERUM 110 mmol/L (98-107); CREATININE - SERUM 0.8 mg/dL (0.6-1.3); GLUCOSE 155 mg/dL (74-106); PROTEIN - SERUM 5.8 g/dL (6.4-8.2); SODIUM 143 mmol/L (136-145); UREA NITROGEN 38 mg/dL (7-18); eGFR NON AFRICAN AMERICAN > 90 mL/min (90-120)
[2019-10-07 06:39] LABS: INR 2.77 (0.85-1.17); PROTIME 28.5 SECONDS (11.6-15.0)
[2019-10-07 06:50] LABS: PLATELET ESTIMATE DECREASED
--- NOTE | 2019-10-07 07:00 | NUR ---
BEDSIDE REPORT RECEIVED. SHIFT ASSESSMENT COMPLETED PER FLOWSHEET, SEE FLOWSHEET FOR INFORMATION. ORAL CARE GIVEN. NO ACUTE NEEDS OR DISTRESS NOTED AT THIS TIME. VSS. WILL CONT TO MONITOR.
--- NOTE | 2019-10-07 09:00 | NUR ---
PT RESTING WITH EYES CLOSED. REPOSITIONED PT PER COMFORT. VSS. NO ACUTE NEEDS OR DISTRESS NOTED AT THIS TIME. WILL CONT TO MONITOR.
--- NOTE | 2019-10-07 11:00 | NUR ---
REASSESSMENT COMPLETED PER FLOWSHEET, SEE FLOWSHEET FOR INFORMATION. PT RESTING IN BED WITH EYES CLOSED. TURNED PT PER COMFORT. WILL CONT TO MONITOR.
--- NOTE | 2019-10-07 13:00 | NUR ---
PT REPOSITIONED PER COMFORT. NO ACUTE NEEDS OR DISTRESS NOTED AT THIS TIME. VSS. WILL CONT TO MONITOR.
--- NOTE | 2019-10-07 15:00 | NUR ---
REASSESSMENT COMPLETED PER FLOWSHEET, SEE FLOWSHEET FOR INFORMATION. PT AT BEDSIDE, UPDATE GIVEN. VSS. WILL CONT TO MONITOR.
--- NOTE | 2019-10-07 17:00 | NUR ---
COMPLETE CHG BEDBATH WITH LINEN CHANGE COMPLETED. NO ACUTE NEEDS OR DISTRESS NOTED AT THIS TIME. VSS. WILL CONT TO MONITOR.
--- NOTE | 2019-10-07 19:00 | NUR ---
ASSESSMENT COMPLETED. LARGE LOOSE BM, CHANGED AND REPOSITIONED PATIENT. ORAL CARE PROVIDED. 4 ML OF RESIDUAL FROM NGT. PLACEMENT CHECKED BY AUSCULTATION.
--- NOTE | 2019-10-07 21:00 | NUR ---
REPOSITIONED AND ORAL CARE PROVIDED.
--- NOTE | 2019-10-07 23:00 | NUR ---
RE-ASSESSMENT COMPLETED. NO CHANGES SINCE LAST ASSESSMENT. ORAL CARE AND REPOSITIONED.
[2019-10-08] VITALS (24 sets, daily range): BP systolic 109–154; BP diastolic 63–96
--- NOTE | 2019-10-08 01:00 | NUR ---
RESIDUAL TO NGT AT 5 ML. REPOSITIONED AND ORAL CARE PROVIDED.
--- NOTE | 2019-10-08 03:00 | NUR ---
RE-ASSESSMENT COMPLETED. NO CHANGES SINCE LAST ASSESSMENT. REPOSITIONED PATIENT
[2019-10-08 03:28] LABS: BASOPHILS 0.1 % (0-2); EOSINOPHILS 0 % (0-7); HEMATOCRIT 37.5 % (42.0-54.0); HEMOGLOBIN 12.2 g/dL (13.5-17.5); IMMATURE GRANULOCYTES 1.3 % (0-5); LYMPHOCYTES 6.7 % (15-50); MCH 31.3 pg (26.0-34.0); MCHC 32.5 g/dL (31.0-37.0); MCV 96.2 fL (80.0-100.0); MONOCYTES 2.8 % (2-11); NEUTROPHILS 89.1 % (40-80); PLATELET COUNT 82 10x3/uL (130-400); RDW 14.4 % (11.5-14.5); WBC 14.4 10x3/uL (4.8-10.8)
[2019-10-08 03:36] LABS: INR 2.24 (0.85-1.17); PROTIME 24.1 SECONDS (11.6-15.0)
[2019-10-08 03:50] LABS: ALBUMIN 2.2 g/dL (3.4-5.0); ALKALINE PHOSPHATASE 146 U/L (46-116); ALT (SGPT) 100 U/L (10-68); BILIRUBIN - TOTAL 1.79 mg/dL (0.2-1.3); CALC OSMOLALITY 294 mosm/kg (275-300); CALCIUM 8.4 mg/dL (8.5-10.1); CHLORIDE - SERUM 108 mmol/L (98-107); CREATININE - SERUM 0.8 mg/dL (0.6-1.3); GLUCOSE 160 mg/dL (74-106); MAGNESIUM - SERUM 2.6 mg/dL (1.8-2.4); PHOSPHOROUS 3.3 mg/dL (2.5-4.9); POTASSIUM - SERUM 4.6 mmol/L (3.5-5.1); PROTEIN - SERUM 5.7 g/dL (6.4-8.2); SODIUM 142 mmol/L (136-145); THYROID STIMULATING HORMONE 0.01 uIU/mL (0.36-3.74); UREA NITROGEN 37 mg/dL (7-18); eGFR NON AFRICAN AMERICAN > 90 mL/min (90-120)
--- NOTE | 2019-10-08 04:59 | NUR ---
REPOSITIONED, ORAL CARE PROVIDED.
--- NOTE | 2019-10-08 09:30 | NUR ---
GWYN SEDATED. FAMILY AT BEDSIDE AWITING DR DIA. NO ACUTE DISTRESS.VSS. BED LOW AND LCOKED. CALL LIGHT WITHINR EACH.
--- NOTE | 2019-10-08 10:40 | NUR ---
NUTRITION F/U PT REMAINS SEDATED ON VENT. TOLERATING PULMOCARE @ 40 CC/HR. WILL CONTINUE TO PROVIDE PULMOCARE, MONITOR PT PROGRESS. RD FOLLOWING
--- NOTE | 2019-10-08 10:57 | NUR ---
0700 pt recieved no signs of pain, repositioned, see shift assessment for details 0900 am meds given, dr lo in room, repositioned 7521 report given
--- NOTE | 2019-10-08 11:00 | NUR ---
PATIENT SEDATED. NO ACUTE DISTRESS. VSS. DR DIA AT BEDSIDE. DOBHOFF IN PLACE. PULMOCARE @40. CRACKLES IN UPPER LOBES BILAT. PULSES PALP BILAT. PITTING EDEMA IN LOWER EXTREMITIES. SWELLING IN ARMS. PATIENT DOES NO FOLLOW COMMANDS. OPENS EYES WHEN SPOKEN TO.
--- NOTE | 2019-10-08 13:00 | NUR ---
RESIDUAL CHECKED. 15 ML. STOMACH SOFT. NO ACUTE DISTRESS. SUCTIONED TURNED. SEE ADL'S AND ASSESSMENT FOR DETAILS. NO PAIN PER [place] SCALE. NO BM AT THIS TIME. FAMILY AT BEDSIDE. UPDATE GIVEN.
--- NOTE | 2019-10-08 15:30 | NUR ---
FRONT PART OF PATIENT BATHED. PATIENT KEPT BUCKING VENT. ON 5 MCG OF PROPOFOL PER DR DIA. VSS. TURNED. SEE ADL'S AND ASSESSMENT. NO ACUTE DISTRESS. FACE WIPED. NEW PILLOW CASES PROVIDED AND NEW SHEET. [facility] TO MONITOR
--- NOTE | 2019-10-08 17:32 | NUR ---
family at bedside. no distress. vss. patient turned. see adl's. family at bedside. update given to family. no bm at this time. will continuet o monitor patient. patient squeezed hands when asked to. did not follow commands to move legs. opens eyes with sternal rub.
--- NOTE | 2019-10-08 18:31 | NUR ---
PATIENT HAD SMALL BM. CLEANED UP. PARTIAL LINEN CHANGE
--- NOTE | 2019-10-08 19:30 | NUR ---
SHIFT ASSESSMENT COMPLETE. NO DISTRESS NOTED AT THIS TIME.
[2019-10-09] VITALS (24 sets, daily range): BP systolic 114–146; BP diastolic 67–83
[2019-10-09 04:46] LABS: BASOPHILS 0.1 % (0-2); EOSINOPHILS 0 % (0-7); HEMATOCRIT 37.3 % (42.0-54.0); HEMOGLOBIN 12.3 g/dL (13.5-17.5); IMMATURE GRANULOCYTES 1.3 % (0-5); LYMPHOCYTES 7.4 % (15-50); MCH 31.4 pg (26.0-34.0); MCV 95.2 fL (80.0-100.0); MEAN PLATELET VOLUME 11.5 fL (7.4-10.4); MONOCYTES 3.4 % (2-11); NEUTROPHILS 87.8 % (40-80); PLATELET COUNT 80 10x3/uL (130-400); RBC 3.92 10x6/uL (4.20-6.10); RDW 14.3 % (11.5-14.5); WBC 17.8 10x3/uL (4.8-10.8)
[2019-10-09 04:51] LABS: INR 2.18 (0.85-1.17); PROTIME 23.6 SECONDS (11.6-15.0)
[2019-10-09 05:13] LABS: CALC OSMOLALITY 291 mosm/kg (275-300); CALCIUM 8.4 mg/dL (8.5-10.1); CARBON DIOXIDE 28.1 mmol/L (21.0-32.0); CHLORIDE - SERUM 107 mmol/L (98-107); CREATININE - SERUM 0.8 mg/dL (0.6-1.3); GLUCOSE 154 mg/dL (74-106); POTASSIUM - SERUM 4.5 mmol/L (3.5-5.1); SODIUM 140 mmol/L (136-145); UREA NITROGEN 41 mg/dL (7-18); eGFR NON AFRICAN AMERICAN > 90 mL/min (90-120)
--- NOTE | 2019-10-09 06:15 | NUR ---
CHG BATH GIVEN AND OVERLAY MATTERESS PLACED. IV INTACT AND INFUSING NO DISTRESS NOTED.
--- NOTE | 2019-10-09 07:00 | NUR ---
REC'D BEDSIDE REPORT AND RESUMED CARE, ETT TO VENTILATION AND SECURED, FIO2 40%, SAT 99%, OTHER VSS, FOLLOWS DIRECTIONS, SHAKES HEAD NO TO PAIN, DOBHOFF TO JLEFT NARE WITH PULMOCARE AT 40 CC/HR, RIGHT IJ CVL WITH PROPOFAL AT 10 MCG, AND 1/2NS AT 55CC/HR, B//L WRIST RESTRAINTS IN USE, DORAN TO GRAVITY WITH HOA DRAINAGE TO BAG, B/L SCD'S IN PLACE, AIR OVERLAY MATTRESS IN USE, REPOSITIONED TO LEFT SIDE WITH HEELS FLOATED, ASSESSMENT COMPLETED PER FLOWSHEET, WILL CONTINUE WITH POC
--- NOTE | 2019-10-09 08:00 | NUR ---
DAUGHTER LORNA AT BEDSIDE, STATUS UPDATED, VOICES NO NEEDS AT THIS TIME
--- NOTE | 2019-10-09 09:15 | NUR ---
MORNING MEDS GIVEN PER DEC FLOWSHEET
--- NOTE | 2019-10-09 11:00 | NUR ---
REASSESSMENT COMPLETED PER FLOWSHEET, CONTINUES ON AC ON VENT, AWAKE AND FOLLOWS COMMANDS, SEDATION OFF AT THIS TIME, NO OTHER ACUTE CHANGE FROM PREVIOUS
--- NOTE | 2019-10-09 12:30 | NUR ---
ATTEMPT TO CPAP FAILED, NO AWAKE ENOUGH, PER DR DIA WILL TRY AFTER SEDATION HAS BEEN OFF LONGER
--- NOTE | 2019-10-09 15:00 | NUR ---
RESTING WITH AT BEDSIDE, STATUS UPDATED, REPOSITIONED TO BACK WITH HEELS FLOATED, VSS, REASSESSMENT COMPLETED PER FLOWSHEET
--- NOTE | 2019-10-09 17:20 | NUR ---
CHANGED TO CPAP, 26 BPM, SAT 97%, CALM AND COOPERATIVE, AT BEDSIDE, WILL CONTINUE TO MONITOR
[2019-10-10] VITALS (24 sets, daily range): BP systolic 112–154; BP diastolic 64–95
[2019-10-10 06:23] LABS: HEMATOCRIT 35.9 % (42.0-54.0); HEMOGLOBIN 12.2 g/dL (13.5-17.5); MCH 32.3 pg (26.0-34.0); MEAN PLATELET VOLUME 11.4 fL (7.4-10.4); PLATELET COUNT 104 10x3/uL (130-400); RBC 3.78 10x6/uL (4.20-6.10); RDW 14.6 % (11.5-14.5); WBC 25.9 10x3/uL (4.8-10.8)
[2019-10-10 06:25] LABS: INR 1.94 (0.85-1.17); PROTIME 21.5 SECONDS (11.6-15.0)
[2019-10-10 06:26] LABS: ALBUMIN 2.4 g/dL (3.4-5.0); ALKALINE PHOSPHATASE 158 U/L (46-116); ALT (SGPT) 99 U/L (10-68); BILIRUBIN - TOTAL 2.16 mg/dL (0.2-1.3); CALC OSMOLALITY 294 mosm/kg (275-300); CALCIUM 8.3 mg/dL (8.5-10.1); CHLORIDE - SERUM 107 mmol/L (98-107); CREATININE - SERUM 0.8 mg/dL (0.6-1.3); GLUCOSE 157 mg/dL (74-106); MAGNESIUM - SERUM 2.5 mg/dL (1.8-2.4); PHOSPHOROUS 2.6 mg/dL (2.5-4.9); POTASSIUM - SERUM 4.9 mmol/L (3.5-5.1); PROTEIN - SERUM 5.5 g/dL (6.4-8.2); SODIUM 141 mmol/L (136-145); T4 THYROXINE 8.1 ug/dL (4.7-13.3); UREA NITROGEN 43 mg/dL (7-18); eGFR NON AFRICAN AMERICAN > 90 mL/min (90-120)
--- NOTE | 2019-10-10 08:41 | NUR ---
Nutrition follow-up: Pt remains intubated; CPAP trials in progress. Pt is awake, calm Pulmocare infusing @ 40 ml/hr; pt tolerating labs reviewed; NH3: 89 - on lactulose RDN following.
[2019-10-10 09:41] LABS: LYMPHOCYTES 10 % (15-50); MONOCYTES 9 % (2-11); NEUTROPHILS 79 % (40-80); PLATELET ESTIMATE DECREASED
[2019-10-10 09:42] LABS: ROULEAUX OCC
--- NOTE | 2019-10-10 11:40 | NUR ---
EXTUBATED AT 1140 BY RT, 2L HF NC PLACES, MOUTH BREATHER, CANULA PLACED TO MOUTH
--- NOTE | 2019-10-10 13:11 | NUR ---
DR DIA MAKING ROUNDS, NEW ORDER GIVEN FOR PT, OT, ST
--- NOTE | 2019-10-10 17:30 | NUR ---
DOBBHOFF 8 FR TUBE AT THE [address] WITHOUT DIFFICULTY, 1740 STAT CXR COMPLETED, OBSERVED BY DR KINZA BAZZI FOR USE, AND LACTULOSE 30 ML GIVEN PER ORDER
--- NOTE | 2019-10-10 18:15 | NUR ---
TF SET CHANGED, RESTARTED PULMOCARE AT 40 CC/HR WITH 20 CC WATER FLUSH Q 1HOUR
--- NOTE | 2019-10-10 23:45 | NUR ---
PATIENT HAD LIQUID DARK BROWN BM PATIENT CLEANED AND LINENS CHANGED.
[2019-10-11] VITALS (24 sets, daily range): BP systolic 132–163; BP diastolic 77–98
--- NOTE | 2019-10-11 03:00 | NUR ---
PATIENT HAD LARGE LIQUID DK BROWN BM. PATIENT CLEANED AND LINENS CHANGED. MEPILEX CHANGED ON COCCYX/BUTTOCKS WOUND APPROX 4X5 CM BLISTERS HAVE POPPED AND WOUND IS DARK RED, NO EXUDATE NOTED.
--- NOTE | 2019-10-11 07:00 | NUR ---
REPORT RECEIVED FROM THE OFF GOING RN. SEE ASSESSMENT IN THE PTS FLOW SHEET. PT ALERT BUT CONFUSED. DOBHOFF NOTED WITH PULMOCARE INFUSING AT 40ML/H. PATENCY CHECKED VIA A&A. NO RESIDUAL NOTED. PT DENIES PAIN AT THIS TIME. CALL LIGHT IN REACH. WILL CONT POC.
[2019-10-11 07:01] LABS: INR 1.81 (0.85-1.17); PROTIME 20.4 SECONDS (11.6-15.0)
[2019-10-11 07:16] LABS: ALBUMIN 2.6 g/dL (3.4-5.0); ALKALINE PHOSPHATASE 153 U/L (46-116); CALC OSMOLALITY 288 mosm/kg (275-300); CALCIUM 8.4 mg/dL (8.5-10.1); CARBON DIOXIDE 28.3 mmol/L (21.0-32.0); CHLORIDE - SERUM 108 mmol/L (98-107); CREATININE - SERUM 0.6 mg/dL (0.6-1.3); GLUCOSE 141 mg/dL (74-106); POTASSIUM - SERUM 4.4 mmol/L (3.5-5.1); PROTEIN - SERUM 5.8 g/dL (6.4-8.2); SODIUM 139 mmol/L (136-145); UREA NITROGEN 39 mg/dL (7-18); eGFR NON AFRICAN AMERICAN > 90 mL/min (90-120)
[2019-10-11 07:23] LABS: ALT (SGPT) 135 U/L (10-68)
[2019-10-11 07:28] LABS: HEMATOCRIT 38.7 % (42.0-54.0); HEMOGLOBIN 12.9 g/dL (13.5-17.5); MCH 31.9 pg (26.0-34.0); MCHC 33.3 g/dL (31.0-37.0); MCV 95.8 fL (80.0-100.0); MEAN PLATELET VOLUME 11.2 fL (7.4-10.4); PLATELET COUNT 118 10x3/uL (130-400); RBC 4.04 10x6/uL (4.20-6.10); WBC 31.6 10x3/uL (4.8-10.8)
--- NOTE | 2019-10-11 09:00 | NUR ---
VSS. PT REPOSITIONED. WILL CONT POC.
[2019-10-11 09:49] LABS: LYMPHOCYTES 5 % (15-50); MONOCYTES 5 % (2-11); NEUTROPHILS 87 % (40-80)
[2019-10-11 09:50] LABS: PLATELET ESTIMATE DECREASED
--- NOTE | 2019-10-11 11:00 | NUR ---
REASSESSMENT COMPLETED. SEE FLOW SHEET.
--- NOTE | 2019-10-11 14:00 | NUR ---
JEANIE HAYWARD AT THE PTS BEDSIDE. SWALLOW EVAL COMPLETED. PURREE WITH HONEY THINK FLUIDS RECOMENDED BY .
--- NOTE | 2019-10-11 15:00 | NUR ---
REASSESSMENT COMPLETED. SEE FLOW SHEET.
--- NOTE | 2019-10-11 17:00 | NUR ---
ASPIRATIONS PRECAUSTIONS IMPLEMENTED. PT EATING PURREE WITH THICKING FLUIDS. ATE SMALL AMOUTS. WILL CONT POC.
--- NOTE | 2019-10-11 17:39 | NUR ---
DR SAUNDERS AT THE PTS BEDSIDE.
[2019-10-12] VITALS (25 sets, daily range): BP systolic 98–175; BP diastolic 69–97
--- NOTE | 2019-10-12 07:00 | NUR ---
REPORT RECEIVED. ASSESSMENT COMPLETE PER FLOW SHEET. VSS. COMPLETE BB LINEN CHANGE ADM. LARGE BM NOTED. WILL CONTINUE TO MONITOR
[2019-10-12 07:03] LABS: BASOPHILS 0 % (0-2); EOSINOPHILS 0 % (0-7); HEMOGLOBIN 12.6 g/dL (13.5-17.5); IMMATURE GRANULOCYTES 1.4 % (0-5); LYMPHOCYTES 5.8 % (15-50); MCHC 33.2 g/dL (31.0-37.0); MCV 96.4 fL (80.0-100.0); MEAN PLATELET VOLUME 11.2 fL (7.4-10.4); MONOCYTES 3.7 % (2-11); NEUTROPHILS 89.1 % (40-80); PLATELET COUNT 136 10x3/uL (130-400); RBC 3.94 10x6/uL (4.20-6.10); RDW 15.6 % (11.5-14.5); WBC 34.4 10x3/uL (4.8-10.8)
[2019-10-12 07:19] LABS: ALBUMIN 2.5 g/dL (3.4-5.0); ALKALINE PHOSPHATASE 176 U/L (46-116); ALT (SGPT) 127 U/L (10-68); BILIRUBIN - TOTAL 3.26 mg/dL (0.2-1.3); CALC OSMOLALITY 292 mosm/kg (275-300); CALCIUM 8.4 mg/dL (8.5-10.1); CARBON DIOXIDE 27.7 mmol/L (21.0-32.0); CHLORIDE - SERUM 107 mmol/L (98-107); CREATININE - SERUM 0.7 mg/dL (0.6-1.3); GLUCOSE 151 mg/dL (74-106); MAGNESIUM - SERUM 2.4 mg/dL (1.8-2.4); PHOSPHOROUS 2.5 mg/dL (2.5-4.9); POTASSIUM - SERUM 4.5 mmol/L (3.5-5.1); PROTEIN - SERUM 5.7 g/dL (6.4-8.2); SODIUM 141 mmol/L (136-145); UREA NITROGEN 37 mg/dL (7-18); eGFR NON AFRICAN AMERICAN > 90 mL/min (90-120)
--- NOTE | 2019-10-12 07:28 | NUR ---
OT NOTE: DOS 10/11/19 PT REQURED MAX A WITH BED MOBILITY TASKS. PT IS MOTIVATED AND COOPERATIVE BUT IS CONFUSED. PT REQUIRED EXTENSIVE CUES FOR TASK SEQUENCING. PT COMPLETED SIMPLE FACE WASH WITH SET UP. THANK YOU,CLAUDIA LOUIS
--- NOTE | 2019-10-12 08:05 | NUR ---
Nutrition follow-up: Dobhoff in place with Pulmocare @ 40 ml/hr Diet advanced to puree with honey thick liquids Wt: 190# NH3 continues to rise: 109 RDN following.
--- NOTE | 2019-10-12 09:00 | NUR ---
ATE 35% BREAKFAST
--- NOTE | 2019-10-12 11:00 | NUR ---
REASSESSMENT COMPLETE PER FLOW SHEET. VSS. NO NEW CHANGES PT RESTING COMFORTABLY WILL CONTINUE TO MONITOR
--- NOTE | 2019-10-12 12:16 | NUR ---
OT NOTE: PT REMAINS WEAK AND EDEMATOUS WITHIN B UES. PERFORMED PROM TO B UES.. PT IS TOO WEAK TO PERFORM ACTIVE TASKS. VERY MINIMAL FINGER FLEX/EXT SONIA. MAX ASSIST X 2 TO ROLL FROM SIDE TO SIDE AND FOR SUPINE TO SIT. MAX ASSIST WITH STATIC SITTING BALANCE ON EOB DUE TO POOR TRUNK STRENGTH. PT UNABLE TO PERFORM ANY BASIC ADLS. MAX ASSIST WITH WASHING FACE AND HANDS WITH CLOTH. PT WITH NOSE BLEED IN L NOSTRIL AND ALSO NOTED TO BE MOUTH BREATHING. CLEANED NASAL AREA AND FACE. ATTEMPTED TO CLEAN INSIDE MOUTH BECAUSE OF DRIED BLOOD NOTED ON TONGUE, HOWEVER, UNABLE TO REMOVE. PT REMAINS CONFUSED AND THINKS THAT HE IS IN A SCHOOL. NUMEROUS ATTEMPTS TO RE ORIENT, HOWEVER, PT UNABLE TO REMEMBER AFTER APPROX 1 MIN. OLGA RODRIGUEZ, OTR/L
--- NOTE | 2019-10-12 12:20 | NUR ---
OT NOTE: PERFORMED BED MOB, NEURO ACT TO INCLUDE EOB SITTING AND STATIC SITTING BALANCE ACT; ALL ADLS WITH TOTAL ASSIST. PROM AND POSITIONING TO B UES. [id number] OLGA RODRIGUEZ, OTR/L
--- NOTE | 2019-10-12 13:15 | NUR ---
COMPLETE BB LINEN CHANGE ADM. LARGE BM NOTED. CHG BATH ADM.
--- NOTE | 2019-10-12 15:00 | NUR ---
REASSESSMENT COMLPETE PER FLOW SHEET. VSS. NO NEW CHANGES PT RESTING COMFORTABLY WILL CONTNIUE TO MONITOR
--- NOTE | 2019-10-12 16:57 | OP ---
PATIENT NAME: DAISHA MEYER MEDICAL RECORD: [id number] :58 LOCATION:D.[facility] [id number] ADMISSION DATE:09/26/19 SURGEON: SHARLA ZAMAN MD DATE OF OPERATION: 10/01/2019 PREOPERATIVE DIAGNOSES: 1. Pneumonia. 2. Bradycardia. 3. Hypotension. 4. Ventilatory failure requiring mechanical ventilation. 5. Lack of adequate peripheral IV access. POSTOPERATIVE DIAGNOSES: 1. Pneumonia. 2. Bradycardia. 3. Hypotension. 4. Ventilatory failure requiring mechanical ventilation. 5. Lack of adequate peripheral IV access. PROCEDURE: Insertion of right internal jugular triple lumen central venous catheter. SURGEON: Sharla Zaman MD LABOR RELATIONS TEACHER: None. BLOOD LOSS: Minimal. ANESTHESIA: Local. COMPLICATIONS: None. The entire procedure was performed in the patient's ICU room. A nurse was present for the entire procedure. OPERATIVE COURSE: The patient was positioned in the Trendelenburg position. The right neck and right upper chest were sterilely prepped and draped. A local anesthetic was used to infiltrate the skin and subcutaneous tissues at the base of the right neck. The right internal jugular vein was percutaneously accessed in an antegrade fashion. A guidewire passed easily. A small skin keyshawn was accomplished. A vessel dilator was used to dilate a subcutaneous tract. A 16-cm triple lumen central venous catheter was inserted to the hub. It was sutured in place times 3. All lumens flushed easily and aspirated dark, nonpulsatile blood. A stat portable chest x-ray revealed adequate placement of the central venous catheter without radiographic evidence of complication. TRANSINT:[id number] Voice Confirmation ID: [id number] DOCUMENT ID: [id number] OPERATIVE REPORT [id number] MITCHDAISHA SHARLA JADE MD at 1657 CC: [id number] DICTATION DATE: 10/01/192108 RETURNS SUPERVISOR: [birth year] [place] [address]
--- NOTE | 2019-10-12 19:40 | NUR ---
PT ALERT, CONFUSED, VOICES SOME NEEDS, O2 @ 4L VIA N/C, LUNGS CLEAR, DHT IN PLACE WITH PULMOCARE @ 40 CC/HR, GENERALIZED EDEMA, DORAN PATENT TO BSD WITH DARK HOA URINE, SEVERE WEAKNESS NOTED, SCD'S TO BILAT LOWER LEGS, VITALS STABLE, WILL CONT TO MONITOR
--- NOTE | 2019-10-12 21:30 | NUR ---
PT AWAKE WITH SPOUSE AT BEDSIDE, TAKES PILLS CRUSHED WITH APPLESAUCE WITHOUT DIFFICULTY, NO DISTRESS NOTED
--- NOTE | 2019-10-12 23:15 | NUR ---
PT REMAINS AWAKE, CONFUSED, HR ELEVATED, NO C/O PAIN, WILL CONT TO MONITOR
[2019-10-13] VITALS (24 sets, daily range): BP systolic 17–173; BP diastolic 72–102
--- NOTE | 2019-10-13 00:44 | NUR ---
DR MENEZES NOTIFIED OF RE-CONSULTATION FOR RECURRENT ATRIAL FIB, ORDERS RECEIVED.
--- NOTE | 2019-10-13 03:20 | NUR ---
PT REMAINS AWAKE, HR 139 UCAF, SMALL LOOSE BM X1, PT CLEANED PER STAFF, REPOSITIONED FOR COMFORT, WILL CONT TO MONITOR
[2019-10-13 04:56] LABS: HEMATOCRIT 33.4 % (42.0-54.0); HEMOGLOBIN 10.7 g/dL (13.5-17.5); MCH 31.3 pg (26.0-34.0); MCV 97.7 fL (80.0-100.0); MEAN PLATELET VOLUME 11.1 fL (7.4-10.4); PLATELET COUNT 123 10x3/uL (130-400); RBC 3.42 10x6/uL (4.20-6.10); RDW 16.2 % (11.5-14.5); WBC 35.5 10x3/uL (4.8-10.8)
[2019-10-13 05:05] LABS: INR 1.93 (0.85-1.17); PROTIME 21.4 SECONDS (11.6-15.0)
[2019-10-13 05:10] LABS: ALBUMIN 2.5 g/dL (3.4-5.0); ALKALINE PHOSPHATASE 157 U/L (46-116); ALT (SGPT) 133 U/L (10-68); BILIRUBIN - DIRECT 1.19 mg/dL (0.00-0.30); BILIRUBIN - INDIRECT 1.88 mg/dL (0.00-1.00); BILIRUBIN - TOTAL 3.07 mg/dL (0.2-1.3); CALC OSMOLALITY 295 mosm/kg (275-300); CALCIUM 8.2 mg/dL (8.5-10.1); CARBON DIOXIDE 27.2 mmol/L (21.0-32.0); CHLORIDE - SERUM 109 mmol/L (98-107); CREATININE - SERUM 0.7 mg/dL (0.6-1.3); GLUCOSE 162 mg/dL (74-106); POTASSIUM - SERUM 4.3 mmol/L (3.5-5.1); PROTEIN - SERUM 5.3 g/dL (6.4-8.2); SODIUM 142 mmol/L (136-145); UREA NITROGEN 38 mg/dL (7-18); eGFR NON AFRICAN AMERICAN > 90 mL/min (90-120)
[2019-10-13 05:14] LABS: LYMPHOCYTES 7 % (15-50); MONOCYTES 3 % (2-11); NEUTROPHILS 90 % (40-80); PLATELET ESTIMATE NORMAL
--- NOTE | 2019-10-13 05:32 | NUR ---
PT SLEEPING, HR 114, VITALS STABLE, NO DISTRESS NOTED, WILL CONT TO MONITOR
--- NOTE | 2019-10-13 07:00 | NUR ---
OPEN EYES TO VERBAL SITMULI SLOW TO RESPONSE. OXYGEN ON 4 LITER PER NC IT IS IN HIS MOUTH. PREVIOUS SHIFT REPORTS THAT HE WILL DE SAT WHEN PLACED IN NC. RIJ CENTRAL LINE TRIPLE LUMEN INFUSING WITH 1/2 NS AT 55 ML HOUR. CVP SET UP. ZEROED WITH GOOD WAVE FORM. PATIENT IS A MOUTH BREATH. LARGE AMOUNT DRIED BLOOD AROUND MOUTH AND IN MOUTH AROUND NOSE. DORAN CATH PATENT DARK CONCENTRATED HOA URINE. SCD ON LOWER LEGS. EDEMA NOTED IN ALL EXTREMITITES. MONITOR SR. HEAD OF BED ELEVATED 30 DEGREES. MEDIPLEX ON COCCYX. AIR MATTRESS FIRST STEP ON BED
--- NOTE | 2019-10-13 09:00 | NUR ---
ORAL CARE DONE AND REPOSITIONED. PILLOW TO BRIDGE HEELS. ATTEMPTED THICKEN LIQUID BREAKFAST ATE COUPLE BITES OF ENSURE STATES IT WAS ENOUGH. MEDS CRUSHED PLACED IN APPLE SAUCE. PATIENT TAKEN FAIR . NEEDS ENCOURAGEMENT TO SWALLOW.
--- NOTE | 2019-10-13 11:00 | NUR ---
REPOSITIONED ORAL CARE DONE. STILL GETTING A LARGE AMOUNT OF DRIED BLOOD FROM ORAL CAVITY. GOOD COUGH REFLEX. ABD TIGHT. RESTING COMFORTABLY NO DISTRESS. OXYGEN STILL IN MOUTH. MOUTH BREATHER.
--- NOTE | 2019-10-13 12:00 | NUR ---
DAUGHTER IN LAW HERE. ASSIST PATIENT WITH LUNCH TRAY. ATE FEW BITES, FEW SIPS OF THICKEN TEA. NEEDS ENCOURAGEMENT TO SWALLOW AND EAT. PATIENT TOLERATED FAIR PATIENT DOES GET SHORT OF BREATH EATING HAVE TO GO VERY SLOW
--- NOTE | 2019-10-13 14:00 | NUR ---
COMPLETE HIBCLENS BATH GIVEN. NEW MEDIPLEX APPLIED ON COCCYX. OPEN AREA NOTED IN EXCORATION AREA BETWEEN BUTTOCK. MODERATE SIZE DARK BROWN LIQUID STOOL. ABD TIGHT. NO OTHER SKIN BREAKDOWN NOTED. PATIENT TOLERATED BATH WELL. ORAL CARE DONE WITH LARGE AMOUNT BLOODY GOODE SECRETIONS CLEAN ED FROM MOUTH.
--- NOTE | 2019-10-13 15:46 | NUR ---
PATIENT ON BED VÁZQUEZ PER HIS REQUEST
--- NOTE | 2019-10-13 16:11 | NUR ---
FAMILY HERE UPDATE GIVEN. PATIENT RESTING COMFORTABLY
--- NOTE | 2019-10-13 17:15 | NUR ---
DARK BROWN LIQUID STOOL MODERATE SIZE. FREDIS CARE DONE. NEW MEDIPLEX APPLIED. PATIENT TOLERATED WELL. FEED PATIENT SUPPER ATE A FEW BITES. STATES HE NEVER HAS HAD MUCH OF A APPETITE.
--- NOTE | 2019-10-13 19:00 | NUR ---
REPORT RECEIVED ASSISTED DAYSHIFT NURSE CLEANING PT AFTER USING BED VÁZQUEZ MODERATE SIZE SEMILIQUID DARK BROWN STOOL.
--- NOTE | 2019-10-13 20:00 | NUR ---
PTS AT BEDSIDE FOR VISITATION UPDATE GIVEN AND QUESTIONS ANSWERED
[2019-10-14] VITALS (23 sets, daily range): BP systolic 135–189; BP diastolic 74–97
--- NOTE | 2019-10-14 01:30 | NUR ---
PT O2 SAT ALARM SOUNDING INTO CHECK O2 SAT DOWN TO 80'S PT HAS PULLED NC OFF. INFORMED OF NEED TO KEEP O2 ON
--- NOTE | 2019-10-14 02:00 | NUR ---
RIGHT IJ CENTRAL LINE DRESSING CHANGED PER PROTOCOL CVP SETUP CHANGED OUT
--- NOTE | 2019-10-14 03:00 | NUR ---
REASSESSMENT COMPLETE. PT HAD BM SMALL DARK BROWN LIQUID COMPLETE BED CHG BED BATH AND COMPLETE LINEN CHANGE. MEPILEX THAT WAS ON BUTTOCKS SOILED WITH STOOL CHANGED MEPILEX SACRUM DRESSING
--- NOTE | 2019-10-14 04:00 | NUR ---
PTS AT BEDSIDE FOR VISITATION
[2019-10-14 05:08] LABS: BASOPHILS 0 % (0-2); EOSINOPHILS 0 % (0-7); HEMATOCRIT 30.6 % (42.0-54.0); HEMOGLOBIN 9.9 g/dL (13.5-17.5); IMMATURE GRANULOCYTES 0.7 % (0-5); LYMPHOCYTES 4.2 % (15-50); MCH 31.7 pg (26.0-34.0); MCHC 32.4 g/dL (31.0-37.0); MCV 98.1 fL (80.0-100.0); MEAN PLATELET VOLUME 10.8 fL (7.4-10.4); MONOCYTES 3.4 % (2-11); NEUTROPHILS 91.7 % (40-80); PLATELET COUNT 109 10x3/uL (130-400); RBC 3.12 10x6/uL (4.20-6.10); RDW 16.5 % (11.5-14.5); WBC 32.9 10x3/uL (4.8-10.8)
[2019-10-14 05:23] LABS: ALBUMIN 2.5 g/dL (3.4-5.0); ALKALINE PHOSPHATASE 187 U/L (46-116); ALT (SGPT) 141 U/L (10-68); CALC OSMOLALITY 295 mosm/kg (275-300); CALCIUM 8.4 mg/dL (8.5-10.1); CARBON DIOXIDE 27.4 mmol/L (21.0-32.0); CHLORIDE - SERUM 109 mmol/L (98-107); CREATININE - SERUM 0.8 mg/dL (0.6-1.3); GLUCOSE 153 mg/dL (74-106); POTASSIUM - SERUM 4.6 mmol/L (3.5-5.1); PROTEIN - SERUM 5.4 g/dL (6.4-8.2); SODIUM 141 mmol/L (136-145); UREA NITROGEN 46 mg/dL (7-18); eGFR NON AFRICAN AMERICAN > 90 mL/min (90-120)
[2019-10-14 05:24] LABS: APTT 32.4 SECONDS (22.8-39.4)
--- NOTE | 2019-10-14 08:00 | NUR ---
FAMILY HERE TRYING TO GET PATIENT TO EAT THICKEN LIQUID BREAKFAST TRAY. PATIENT NEEDS GREAT ENCOURAGEMENT TO GET A FEW BITES DOWN HIM
--- NOTE | 2019-10-14 09:33 | NUR ---
OPENS EYES TO VERBAL STIMULATION. GARBLED SPEECH, UNABLE TO UNDERSTAND. SKIN WARM AND DRY. NO ACTIVE BLEEDING. MONITOR SR. RIJ SITE WITH OLD BLOOD ON DRESSING. INFUSING WITH 1/2NS AT 55 ML HOUR. CVP LINE ZEROED AND FLUSHED. MOUTH BREATHING OXYGEN IN MOUTH. ABD FIRM WITH BOWEL SOUNDS. DORAN CATH PATENT DRAINING HOA URINE. SCD ON LOWER LEGS. HEAD OF BED ELEVATED 30 DEGREES. HEELS BRIDGED ON PILLOW OFF FIRST STEP AIR MATTRESS
--- NOTE | 2019-10-14 11:00 | NUR ---
PHYSICAL THERAPY HERE, TOTAL STAFF LIFTING TO SIT PATIENT ON SIDE OF BED. HAD TO HOLD HIS HEAD UP AND HOLD PATIENT UP. PATIENT UNABLE TO MOVE ARMS OR LEGS. FLOPPY ARMS . PATIENT TOLERATES POORLY REPOSITIONED
--- NOTE | 2019-10-14 13:12 | NUR ---
UNABLE TO EAT ANY LUNCH, DUE DIFFICULTY SWALLOWING. MORE COUGHING AND CHOKING ON THICKEN LIQUIDS TODAY. MORE MOANING. REPOSITIONED. DAUGHTER IN LAW HERE. ORAL CARE DONE STILL ALOT OF DRIED BLOOD IN MOUTH AND THROAT
--- NOTE | 2019-10-14 14:34 | NUR ---
NAPPING AT SHORT INTERVALS. GOOD COUGH DRIED HUNGS OF BLOOD SUCTIONED FROM MOUTH
--- NOTE | 2019-10-14 15:45 | NUR ---
PATIENT STILL MOANING STATES HURTING ALL OVER. CALL [facility] FOR DR. CLARK. ORDERS RECEIVED FOR TRAMDOL FOR PAIN FOR PATIENT.
--- NOTE | 2019-10-14 17:30 | NUR ---
LARGE SOFT DARK BROWN STOOL. PERICARE DONE MEDIPLEX REPLACED. PATIENT MOANING LESS. RESTING AT SHORT INTERVALS. AT BEDSIDE. REPOSITIONED.
--- NOTE | 2019-10-14 18:30 | NUR ---
LARGE SOFT DARK BROWN STOOL. BUTT PASTE APPLIED. TO EXCORATION. REPOSITIONED. TOLERATED FAIR.
--- NOTE | 2019-10-14 19:00 | NUR ---
REPORT RECEIVED. INITIAL ASSESSMENT COMPLETE. PT MOANING BUT STATES NO TO QUESTION OF PAIN. PT SHAKING HEAD BACK AND FORTH TRYING TO GET THE UPDRAFT MASK OFF INFORMED JUST NEEDED THE TREATMENT TO FINISH. CM READING SR WITHOUT ECTOPY ALARMS ON AND AUDIBLE. O2 PER NC O2 SAT OF 94%. PT IS A MOUTH BREATHER SO NC IS ORALLY. CPOC WILL CONTINUE TO MONITOR.
--- NOTE | 2019-10-14 20:00 | NUR ---
PTS AT BEDSIDE FOR VISITATION UPDATE GIVEN AND QUESTIONS ANSWERED.
--- NOTE | 2019-10-14 21:10 | NUR ---
PTS OUT TO NURSES STATION STATING PT HAD BM. COMPLETE CHG BATH AND LINEN CHANGE. LARGE DARK BROWN LIQUID STOOL.
--- NOTE | 2019-10-14 23:10 | NUR ---
CALLED GINNY LAMA [facility] OUTPATIENT PHLEBOTOMIST FOR DR CLARK WHO HAD GIVEN THE ORDER EARLIER TODAY FOR TRAMADOL FOR PAIN. INFORMED THAT JUST REMEMBERED THAT SHE HAD GIVEN PT ONE OF HER TRAMADOL BEFORE AND IT HAD MADE HIM AGITATED AND IRRITABLE. GINNY STATED WELL DONT GIVE THE TRAMADOL THEN STATED HE WOULD TALK TO DR CLARK IN AM, INFORMED THAT PT WAS IRRITABLE AND NOT COMFORTABLE DID HE WANT TO ORDER ANYTHING ELSE. HE STATED JUST TO GO AHEAD AND GIVE TRAMADOL.
[2019-10-15] VITALS (24 sets, daily range): BP systolic 91–152; BP diastolic 49–81
--- NOTE | 2019-10-15 01:15 | NUR ---
REPOSITIONED FOR COMFORT, WILL CON'T TO MONITOR
--- NOTE | 2019-10-15 03:20 | NUR ---
REASSESSMENT COMPLETE, NO CHANGES NOTED, WILL CON'T TO MONITOR
[2019-10-15 05:29] LABS: HEMATOCRIT 30.5 % (42.0-54.0); HEMOGLOBIN 9.8 g/dL (13.5-17.5); MCH 32.2 pg (26.0-34.0); MCHC 32.1 g/dL (31.0-37.0); MCV 100.3 fL (80.0-100.0); MEAN PLATELET VOLUME 11.1 fL (7.4-10.4); PLATELET COUNT 112 10x3/uL (130-400); RBC 3.04 10x6/uL (4.20-6.10); RDW 17.3 % (11.5-14.5); WBC 31.4 10x3/uL (4.8-10.8)
[2019-10-15 05:32] LABS: APTT 31.7 SECONDS (22.8-39.4); INR 2.11 (0.85-1.17)
[2019-10-15 05:40] LABS: ALBUMIN 2.7 g/dL (3.4-5.0); ALKALINE PHOSPHATASE 165 U/L (46-116); ALT (SGPT) 152 U/L (10-68); BILIRUBIN - TOTAL 3.94 mg/dL (0.2-1.3); CALC OSMOLALITY 299 mosm/kg (275-300); CALCIUM 8.6 mg/dL (8.5-10.1); CARBON DIOXIDE 26.8 mmol/L (21.0-32.0); CHLORIDE - SERUM 110 mmol/L (98-107); CREATININE - SERUM 0.8 mg/dL (0.6-1.3); GLUCOSE 135 mg/dL (74-106); POTASSIUM - SERUM 5.1 mmol/L (3.5-5.1); PROTEIN - SERUM 5.7 g/dL (6.4-8.2); SODIUM 142 mmol/L (136-145); UREA NITROGEN 55 mg/dL (7-18); eGFR NON AFRICAN AMERICAN > 90 mL/min (90-120)
--- NOTE | 2019-10-15 06:00 | NUR ---
PT O2 SAT DROPPING AT THIS TIME, ABG DRAWN, DR. KAYE NOTIFIED, NEW ORDERS RECIEVED,
--- NOTE | 2019-10-15 06:10 | NUR ---
ATTEMPTS TO CALL PTS FAMILY UNSUCCESSFUL ATTEMPTED TO CALL PTS SUNITHA AT [phone] TIMES 4 NO ANSWER [phone]. TIMES 4 NO ANSWER. THEN CALLED PTS DAUGHTER AT [phone] TIMES 2 NO ANSWER.
--- NOTE | 2019-10-15 06:25 | NUR ---
CONSULT CALLED TO DR. SINGH AT THIS TIME
--- NOTE | 2019-10-15 06:30 | NUR ---
PTS RETURNED CALL INFORMED PT HAD TAKEN A TURN FOR THE WORSE AND THEY SHOULD COME TO HOSPITAL AND INFORMED PT NEEDED TO BE REINTUBATED. VERIFIED WITH THAT SHE WANTED EVERYTHING DONE SHE SAID LET ME TALK TO MY KIDS INFORMED THE DECISION NEEDED TO BE MADE QUICKLY. SHE STATED SHE WOULD CALL RIGHT BACK.
--- NOTE | 2019-10-15 06:38 | NUR ---
PTS CALLED YES THEY DO WANT PT INTUBATED
--- NOTE | 2019-10-15 06:59 | NUR ---
DR. SINGH AT BEDSIDE, PT INTUBATED WITH 8.5 ETT, 23 AT LIP, TOLERATED WELL, STAT CXR ORDERED
--- NOTE | 2019-10-15 07:15 | NUR ---
DR SINGH AT BEDSIDE. REPORT RECIEVED. VSS. FAMILY AWARE OF SITUATION. SEE ASSESSMENT. SEE ADL'S. WILL CONTINUE TO MONITOR
--- NOTE | 2019-10-15 08:33 | NUR ---
Nutrition follow-up: Pt just intubated due to respiratory failure Pulmocare continues @ 40 ml/jr via NGT Pt with puree, honey thick liquid diet; however, nursing reports pt has continued to cough, choke while eating. Labs reviewed: NH3: 67 +BM; on lactulose Wt: 245# RDN following.
--- NOTE | 2019-10-15 08:46 | NUR ---
ADRIAN HELD. BP 99/67.
[2019-10-15 09:14] LABS: LYMPHOCYTES 6 % (15-50); MONOCYTES 10 % (2-11); NEUTROPHILS 83 % (40-80)
[2019-10-15 09:15] LABS: PLATELET ESTIMATE NORMAL; POLYCHROMASIA OCC; ROULEAUX OCC
--- NOTE | 2019-10-15 09:32 | NUR ---
BP 91/60. MAP 74. WILL CONTINUE TO MONITOR
--- NOTE | 2019-10-15 11:30 | NUR ---
per dr ryan. stop tube feedings because abdomen firm and distended. replace francisco with og and connect to lis.
--- NOTE | 2019-10-15 11:30 | NUR ---
COMPELTE LINEN CHANGE MEPILEX REPLACED
--- NOTE | 2019-10-15 12:00 | NUR ---
dr molina paged to see what he says about teri singh being replkaced iw og tube
--- NOTE | 2019-10-15 13:30 | NUR ---
patient rseting. family at bedside. update given. dr lr at bedside. no new orders
--- NOTE | 2019-10-15 13:30 | NUR ---
voice at bedside. update given. spke with family
--- NOTE | 2019-10-15 15:00 | NUR ---
afebrile no acute distress. will continue to monitor patient
--- NOTE | 2019-10-15 16:18 | NUR ---
DR LEMON STATED IF DR ONTIVEROS FELT COMFORTABLE PUTTING AN OG HE WILL GO WITH THAT. IF NOT, THEN JUST DO WHAT DR ONTIVEROS STATES
--- NOTE | 2019-10-15 17:37 | NUR ---
tried 3 times to put francisco down. patient reactive to it and would fight against it.
--- NOTE | 2019-10-15 17:37 | NUR ---
spoke with dr lo. he stated he wants a francisco inserted rather than an og tube to given meds.
--- NOTE | 2019-10-15 18:25 | NUR ---
dr ryan stated to use minimal sedation
[2019-10-15 18:46] LABS: APPEARANCE CLEAR (CLEAR); BILIRUBIN NEGATIVE (NEGATIVE); COLOR DK YELLOW (YELLOW); GLUCOSE NEGATIVE (NEGATIVE); KETONE NEGATIVE (NEGATIVE); NITRITE NEGATIVE (NEGATIVE); PROTEIN NEGATIVE (NEGATIVE); UROBILINOGEN NORMAL (NORMAL)
[2019-10-15 18:47] LABS: RED CELLS - URINE 0-5 /hpf (0-5); WHITE CELLS - URINE 0-5 /hpf (NEGATIVE)
[2019-10-15 18:48] LABS: BACTERIA FEW /hpf (NEGATIVE); MUCUS <1+ /lpf (NONE SEEN)
--- NOTE | 2019-10-15 19:00 | NUR ---
ASSESSMENT DONE SEE FLOW SHEET. VSS. NGT DOBHAFF ATTEMPTED MULTIPLE ATTEMPTS UNSUCCESSFUL. UNABLE TO GIVE PO MEDS.
--- NOTE | 2019-10-15 21:18 | NUR ---
DR WOLF INFORMED OF PT STATUS. GINNY FLOWERS INFORMED OF PT STATUS. ORDER TO HOLD PO MEDS GIVEN VSS WILL CONTINUE TO MONITOR.
--- NOTE | 2019-10-15 23:03 | NUR ---
REASSESSMENT DONE SEE FLOW SHEET VSS
[2019-10-16] VITALS (24 sets, daily range): BP systolic 96–163; BP diastolic 8–88
--- NOTE | 2019-10-16 01:00 | NUR ---
PARTIAL LINEN CHANGE. VSS. WILL CONTINUE TO MONITOR.
--- NOTE | 2019-10-16 03:00 | NUR ---
REASSESSMENT COMPLEE, SEE FLOW SHEET
[2019-10-16 04:14] LABS: ALBUMIN 2.2 g/dL (3.4-5.0); BILIRUBIN - TOTAL 5.03 mg/dL (0.2-1.3); CALCIUM 8.3 mg/dL (8.5-10.1); PROTEIN - SERUM 4.4 g/dL (6.4-8.2)
[2019-10-16 04:17] LABS: CREATININE - SERUM 1.3 mg/dL (0.6-1.3)
[2019-10-16 04:33] LABS: APTT 52.8 SECONDS (22.8-39.4); INR 3.26 (0.85-1.17); PROTIME 32.4 SECONDS (11.6-15.0)
[2019-10-16 04:55] LABS: BASOPHILS 0 % (0-2); EOSINOPHILS 0 % (0-7); HEMATOCRIT 24.1 % (42.0-54.0); HEMOGLOBIN 7.7 g/dL (13.5-17.5); IMMATURE GRANULOCYTES 0.3 % (0-5); LYMPHOCYTES 2.2 % (15-50); MCH 32.1 pg (26.0-34.0); MCV 100.4 fL (80.0-100.0); MEAN PLATELET VOLUME 11.8 fL (7.4-10.4); MONOCYTES 2.4 % (2-11); NEUTROPHILS 95.1 % (40-80); RDW 18.1 % (11.5-14.5); WBC 22.1 10x3/uL (4.8-10.8)
[2019-10-16 04:56] LABS: PLATELET COUNT 46 10x3/uL (130-400)
--- NOTE | 2019-10-16 05:00 | NUR ---
IO COLLECTED DAILY WEIGHT COLLECTED.
--- NOTE | 2019-10-16 06:06 | NUR ---
UPDATE CALLED TO [facility], NEW ORDERS RECIEVED,
[2019-10-16 07:09] LABS: HEMATOCRIT 24.3 % (42.0-54.0); HEMOGLOBIN 7.8 g/dL (13.5-17.5); MCH 32.2 pg (26.0-34.0); MCHC 32.1 g/dL (31.0-37.0); MCV 100.4 fL (80.0-100.0); MEAN PLATELET VOLUME 10.6 fL (7.4-10.4); RBC 2.42 10x6/uL (4.20-6.10); RDW 18.2 % (11.5-14.5); WBC 21.6 10x3/uL (4.8-10.8)
[2019-10-16 07:10] LABS: APTT 52.6 SECONDS (22.8-39.4); INR 3.09 (0.85-1.17); PLATELET COUNT 41 10x3/uL (130-400); PROTIME 31.1 SECONDS (11.6-15.0)
[2019-10-16 07:11] LABS: ANION GAP 13.5 mmol/L (8-16); CALCIUM 8.5 mg/dL (8.5-10.1); CARBON DIOXIDE 24.5 mmol/L (21.0-32.0); CREATININE - SERUM 1.3 mg/dL (0.6-1.3)
[2019-10-16 07:16] LABS: ALBUMIN 2.2 g/dL (3.4-5.0); BILIRUBIN - TOTAL 4.96 mg/dL (0.2-1.3); PROTEIN - SERUM 4.5 g/dL (6.4-8.2)
--- NOTE | 2019-10-16 08:00 | NUR ---
AT BEDSIDE, STATUS UPDATED VOICES NO OTHER NEEDS AT THIS TIME
--- NOTE | 2019-10-16 08:47 | NUR ---
DAUGHTER SIOBHAN AT BEDSIDE, DISCUSSED LAB RESULTS FOR TODAY
[2019-10-16 10:39] LABS: ANISOCYTOSIS OCC; LYMPHOCYTES 7 % (15-50); MONOCYTES 6 % (2-11); NEUTROPHILS 86 % (40-80); PLATELET ESTIMATE DECREASED
--- NOTE | 2019-10-16 10:49 | NUR ---
BLOOD DRAWN FROM RIGHT IJ FOR CROSSMATCH
--- NOTE | 2019-10-16 12:30 | NUR ---
CALLED TO ROOM, DAUGHTER SIOBHAN SAYS THAT FATHER SHKING HIS HEAD YES THAT HE IS PAIN, FENTANYL 25 MCG GIVEN PER [facility]
--- NOTE | 2019-10-16 14:10 | NUR ---
FAMILY C/O THAT PATIENT STILL IN PAIN, HE NODS HIS HEAD YES WHEN I ASKED, PAGED DR LEMON [address] LEMON, NEW ORDER GIVEN FOR FENTANYL Q 2HR PRN 1433 25 MCG FENTANYL GIVEN PER [facility]
--- NOTE | 2019-10-16 15:15 | NUR ---
PRBC COMPLETED, LINES FLUSHED WITH 20 ML SALINE, VSS SEE FLOWSHEET, NO OTHER ACUTE CHANGE FROM PREVIOUS
--- NOTE | 2019-10-16 17:56 | NUR ---
LAB DRAWN FOR REPEAT H AND H FROM RT IJ CVL, LINE FLUSH WITH 10 CC NS
[2019-10-16 18:01] LABS: HEMATOCRIT 26.5 % (42.0-54.0); HEMOGLOBIN 8.6 g/dL (13.5-17.5)
--- NOTE | 2019-10-16 18:25 | NUR ---
PC TO [facility] FOR DR CLARK, RE: H/H RESULTS 1829 PC FROM [facility], RESULTS GIVEN FOR H/H, NO INTERVENTION AT THIS TIME
[2019-10-17] VITALS (23 sets, daily range): BP systolic 116–147; BP diastolic 51–81
--- NOTE | 2019-10-17 01:00 | NUR ---
1900 ASSESSMENT DONE SEE FLOW SHEET VSS. 2100 MEDS GIVEN PER DEC. VSS. 2300 REASSESSMENT DONE SEE FLOW SHEET. VSS. 0100 PT RESTING IN BED NO SIGNS OF ACUTE DISTRESS NOTED.
--- NOTE | 2019-10-17 03:00 | NUR ---
REASSESSMENT DOEN SEE FLOW SHEET VSS.
--- NOTE | 2019-10-17 04:50 | NUR ---
IO COLLECTED DAILY WEIGHT COLLECTED. RT AT BEDSIDE FIO2 TO 50%. WILL CONTINUE TO MONITOR.
[2019-10-17 04:57] LABS: BASOPHILS 0.1 % (0-2); EOSINOPHILS 0 % (0-7); HEMATOCRIT 25.9 % (42.0-54.0); HEMOGLOBIN 8.5 g/dL (13.5-17.5); IMMATURE GRANULOCYTES 0.3 % (0-5); LYMPHOCYTES 1.8 % (15-50); MCH 31.6 pg (26.0-34.0); MCHC 32.8 g/dL (31.0-37.0); MONOCYTES 2.2 % (2-11); NEUTROPHILS 95.6 % (40-80); RBC 2.69 10x6/uL (4.20-6.10); RDW 20.4 % (11.5-14.5); WBC 18.5 10x3/uL (4.8-10.8)
[2019-10-17 04:58] LABS: MCV 96.3 fL (80.0-100.0); PLATELET COUNT 42 10x3/uL (130-400)
[2019-10-17 05:12] LABS: ALBUMIN 2.3 g/dL (3.4-5.0); ANION GAP 12.5 mmol/L (8-16); BILIRUBIN - TOTAL 5.31 mg/dL (0.2-1.3); CALCIUM 8.2 mg/dL (8.5-10.1); CARBON DIOXIDE 25.1 mmol/L (21.0-32.0); CREATININE - SERUM 1.1 mg/dL (0.6-1.3); POTASSIUM - SERUM 4.6 mmol/L (3.5-5.1); PROTEIN - SERUM 4.8 g/dL (6.4-8.2); VANCOMYCIN - RANDOM 18.5 ug/mL (10.0-20.0)
--- NOTE | 2019-10-17 07:00 | NUR ---
PT REPORT RECEIVED FROM SUPERVISOR COSTUMING NURSE. SHIFT ASSESSMENT COMPLETED. NO VISIBLE SIGNS OF DISTRESS NOTED. WILL CONTINUE TO MONITOR
--- NOTE | 2019-10-17 09:00 | NUR ---
PT RESTING IN BED. NO VISIBLE SIGNS OF DISTRESS NOTED. PT UNABLE TO TAKE PO MEDS. NO GASTRIC ACCESS AVAILABLE. PT HAS POSSIBLE ESOPHAGEAL VARICIES. WILL CONTINUE TO MONITOR
--- NOTE | 2019-10-17 09:45 | NUR ---
PT STARTED ON CPAP TRIAL. PT TOLERATING WELL. WILL CONTINUE TO MONITOR
[2019-10-17 09:47] LABS: APTT 46.1 SECONDS (22.8-39.4)
[2019-10-17 09:48] LABS: PROTIME 25.9 SECONDS (11.6-15.0)
[2019-10-17 09:58] LABS: INR 2.45 (0.85-1.17)
--- NOTE | 2019-10-17 11:00 | NUR ---
PT RESTING IN BED. NO VISIBLE SIGNS OF DISTRESS NOTED. WILL CONTINUE TO MONITOR
--- NOTE | 2019-10-17 11:40 | NUR ---
CALLED TO ROOM, PATIENT KICKING LEGS AND FROWNING, WHEN ASKED NODS HEAD YES TO PAIN, CURRENTLY ON CPAP, VSS, NO SEDATION IN USE, FENTSNYL 25 MCG, GIVEN PER PRN ORDER
--- NOTE | 2019-10-17 13:00 | NUR ---
PT LYING IN BED. NO VISIBLE SIGNS OF DISTRESS NOTED. WILL CONTINUE TO MONITOR
--- NOTE | 2019-10-17 15:00 | NUR ---
PT RESTING IN BED. REASSESSMENT COMPLETED. NO ACUTE SIGNS OF DISTRESS NOTED. WILL CONTINUE TO MONITOR
--- NOTE | 2019-10-17 17:00 | NUR ---
PT RESTING IN BED. PT HAD SMALL BM. CLEANED UP AND NEW LINEN ON BED. WILL CONTINUE TO MONITOR
[2019-10-18] VITALS (24 sets, daily range): BP systolic 118–155; BP diastolic 62–82
[2019-10-18 04:46] LABS: BASOPHILS 0 % (0-2); EOSINOPHILS 0 % (0-7); HEMATOCRIT 24.3 % (42.0-54.0); IMMATURE GRANULOCYTES 0.1 % (0-5); LYMPHOCYTES 2.2 % (15-50); MCH 32.1 pg (26.0-34.0); MCHC 32.9 g/dL (31.0-37.0); MCV 97.6 fL (80.0-100.0); MEAN PLATELET VOLUME 10.7 fL (7.4-10.4); MONOCYTES 2.8 % (2-11); NEUTROPHILS 94.9 % (40-80); RBC 2.49 10x6/uL (4.20-6.10); RDW 20.2 % (11.5-14.5)
[2019-10-18 04:47] LABS: WBC 9.2 10x3/uL (4.8-10.8)
[2019-10-18 04:48] LABS: PLATELET COUNT 28 10x3/uL (130-400)
[2019-10-18 04:53] LABS: APTT 37.3 SECONDS (22.8-39.4); INR 2.42 (0.85-1.17); PROTIME 25.6 SECONDS (11.6-15.0)
[2019-10-18 04:57] LABS: ALBUMIN 2.2 g/dL (3.4-5.0); ANION GAP 10.4 mmol/L (8-16); BILIRUBIN - TOTAL 5.16 mg/dL (0.2-1.3); CALCIUM 8.6 mg/dL (8.5-10.1); CARBON DIOXIDE 26.6 mmol/L (21.0-32.0); CREATININE - SERUM 1.1 mg/dL (0.6-1.3); PROTEIN - SERUM 4.7 g/dL (6.4-8.2); VANCOMYCIN - RANDOM 15.9 ug/mL (10.0-20.0)
--- NOTE | 2019-10-18 07:00 | NUR ---
PT REPORT RECEIVED FROM FIXED ROUTE BUS OPERATOR NURSE. NO VISIBLE SIGNS OF DISTRESS NOTED. PT RESTING IN BED. SHIFT ASSESSMENT COMPLETED. WILL CONTINUE TO MONITOR
--- NOTE | 2019-10-18 07:24 | NUR ---
DR. CLARK PAGED TO NOTIFY OF PLATELETS
--- NOTE | 2019-10-18 07:25 | NUR ---
DR. CLARK HERE NO NEW ORDERS RECEIVED. DR. CLARK IN TO SEE PATIENT.
--- NOTE | 2019-10-18 08:26 | NUR ---
Nutrition follow-up: Pt NPO NGT out and nursing unable to place at this time. Esophageal varices? Pt remains intubated; CPAP trials 10/17 Paracentesis today? +BM Recommend PEG tube placement for nutrition. RDN following.
--- NOTE | 2019-10-18 09:00 | NUR ---
PT RESTING IN BED. NO VISIBLE SIGNS OF DISTRESS NOTED. PT UNABLE TO TAKE PO MEDS DUE TO NO GASTRIC TUBE AND BEING INTUBATED. WILL CONTINUE TO MONITOR
--- NOTE | 2019-10-18 10:37 | NUR ---
DR LEMON AT BEDSIDE. STATED HE WOULD CONSULT HEMATOLOGY TO CONSULT DUE TO PT HAVING A PLATELET COUNT OF 28 THIS AM. AWAITING ORDER BEFORE CONTACTING CONSULTED
--- NOTE | 2019-10-18 11:00 | NUR ---
PT STARTED BACK ON CPAP TRIALS. TOLERATING WELL. WILL CONTINUE TO MONITOR
--- NOTE | 2019-10-18 12:09 | NUR ---
TAYLOR GALVAN HELPED DROP A DOBHOFF IN THE PT. AWAITING XRAY TO COME AND VERIFY PLACEMENT. WILL CONTINUE TO MONITOR
--- NOTE | 2019-10-18 12:43 | NUR ---
DR DEAL CALLED REGARDING DOBHOFF PLACEMENT. STATED THAT THE TUBE WAS COILED AT THE DISTAL ESOPHAGUS. REMOVED DOBHOFF AT THIS TIME. WILL CONTINUE TO MONITOR
--- NOTE | 2019-10-18 12:45 | NUR ---
PT TAKEN OFF CPAP TRIALS. TACHYPNIC BREATHING 51 TIMES A MINUTE. WILL CONTINUE TO MONITOR
--- NOTE | 2019-10-18 13:00 | NUR ---
PT RESTING IN BED. FAMILY AT BEDSIDE. NO VISIBLE SIGNS OF DISTRESS NOTED. WILL CONTINUE TO MONITOR
--- NOTE | 2019-10-18 15:00 | NUR ---
PT RESTING IN BED. NO VISIBLE SIGNS OF DISTRESS NOTED. REASSESSMENT COMPLETED.
--- NOTE | 2019-10-18 15:52 | NUR ---
DR CLARK CALLED REGARDING PLACEMENT OF DOBHOFF. UPDATE GIVEN. DR CLARK WANTED TO TRY TO PLACE TUBE AGAIN BEFORE STARTING TPN IF UNSUCCESSFULL.
--- NOTE | 2019-10-18 16:00 | NUR ---
TAYLOR GALVAN IN ROOM ATTEMPTING TO PLACE AN NG/OG TUBE. OG TUBE SUCCESSFULLY PLACED. VERIFIED BY AUSCULTATION BY THREE NURSES, TRISTIAN VAZQUEZ ANDREW, COLE. WILL CONTINUE TO MONITOR
--- NOTE | 2019-10-18 16:15 | NUR ---
TAYLOR GALVAN ATTEMPTED TO CONTACT DR CLARK AT HER OFFICE. HOWEVER SHE WAS UNSUCCESSFULL IN CONTACTING HER. AWAITING CALL BACK ON WHAT NUTRITION TO START PT ON
--- NOTE | 2019-10-18 17:00 | NUR ---
PT RESTING IN BED. FAMILY AT BEDSIDE. ORAL CARE PROVIDED. NO VISIBLE SIGNS OF DISTRESS NOTED. WILL CONTINUE TO MONITOR
[2019-10-19] VITALS (23 sets, daily range): BP systolic 102–152; BP diastolic 62–76
--- NOTE | 2019-10-19 07:00 | NUR ---
REPORT RECEIVED. ASSESSMENT COMPLETE PER FLOW SHEET. VSS. PT RESTING COMFORTABLY WILL CONTINUE TO MONITOR
--- NOTE | 2019-10-19 08:00 | NUR ---
[facility] DIE REPAIRER TRIMMER DIES AT BEDSIDE GIVEN UPDATE NO NEW ORDERS WILL CONTINUE TOMONITOR
[2019-10-19 10:22] LABS: BASOPHILS 0 % (0-2); EOSINOPHILS 0 % (0-7); HEMATOCRIT 26.2 % (42.0-54.0); HEMOGLOBIN 8.5 g/dL (13.5-17.5); IMMATURE GRANULOCYTES 0.3 % (0-5); LYMPHOCYTES 2.3 % (15-50); MCHC 32.4 g/dL (31.0-37.0); MCV 98.5 fL (80.0-100.0); MONOCYTES 4.2 % (2-11); NEUTROPHILS 93.2 % (40-80); RBC 2.66 10x6/uL (4.20-6.10); RDW 19.7 % (11.5-14.5); WBC 8.8 10x3/uL (4.8-10.8)
[2019-10-19 10:24] LABS: PLATELET COUNT 31 10x3/uL (130-400)
[2019-10-19 10:34] LABS: INR 2.34 (0.85-1.17); PROTIME 24.9 SECONDS (11.6-15.0)
[2019-10-19 10:38] LABS: ALBUMIN 2.5 g/dL (3.4-5.0); ALKALINE PHOSPHATASE 82 U/L (46-116); ALT (SGPT) 175 U/L (10-68); BILIRUBIN - TOTAL 5.16 mg/dL (0.2-1.3); CALC OSMOLALITY 312 mosm/kg (275-300); CALCIUM 8.9 mg/dL (8.5-10.1); CARBON DIOXIDE 26.9 mmol/L (21.0-32.0); CHLORIDE - SERUM 115 mmol/L (98-107); CREATININE - SERUM 0.9 mg/dL (0.6-1.3); GLUCOSE 170 mg/dL (74-106); PROTEIN - SERUM 5.2 g/dL (6.4-8.2); SODIUM 147 mmol/L (136-145); UREA NITROGEN 61 mg/dL (7-18); eGFR NON AFRICAN AMERICAN > 90 mL/min (90-120)
--- NOTE | 2019-10-19 11:00 | NUR ---
REASSESSMENT COMPLETE PER FLOW SHEET. VSS NO NEW CHANGES PT RESTING COMFORTABLY WILL ONTINUE TO MONITOR
--- NOTE | 2019-10-19 11:53 | NUR ---
Critical Result Type: platelet Critical Result Value: 31 Time Nurse Notified: 1023 Name of Physician and Time Called: 1040 Physician Notified at: 1043 Physician NOT Notified with Reason: Comments: no new orders Read Back and Verified By: selena mccall
--- NOTE | 2019-10-19 13:45 | NUR ---
NUTRITION F/U RECEIVED CONSULT TO START TUBE FEEDS PULCOMCARE. ENTERED TUBE FEED ORDER AND NURSING MESSAGE TO START TUBE FEEDS. WILL MONITOR PT PROGRESS AND ADVANCE TUBE FEEDS WHEN DIRECTED BY MD. SWEET FOLLOWING
--- NOTE | 2019-10-19 15:20 | NUR ---
REASSESSMENT COMPLETE PER FLOW SHEET. VSS. NO ENW CHANGES WILL CONTINUE TO MONITOR
--- NOTE | 2019-10-19 17:15 | NUR ---
COMPLETE BB LINEN CHANGE ADM. ORAL ENDOTRACH CARE ADM. REPOSITIONED FOR COMFORT WILL CONTINUE BILLIE ONITOR
--- NOTE | 2019-10-19 19:00 | NUR ---
ASSESSMENT COMPLETED. REPOSITIONED AND ORAL CARE COMPLETED.
--- NOTE | 2019-10-19 21:00 | NUR ---
REPOSITIONED AND ORAL CARE COMPLETED. NO RESIDUAL FROM OGT
--- NOTE | 2019-10-19 23:00 | NUR ---
RE-ASSESSMENT COMPLETED. REPOSITIONED AND ORAL CARE PROVIDED
[2019-10-20] VITALS (24 sets, daily range): BP systolic 123–158; BP diastolic 52–77
--- NOTE | 2019-10-20 01:00 | NUR ---
LARGE LOOSE BM. WHEN CLEANING PT, PT CONT TO HAVE BM. DRESSING ON BUTTOCK SOILED. CHANGED DRESSING. LARGE WOUND NOTED.
--- NOTE | 2019-10-20 03:00 | NUR ---
RE-ASSESSMENT COMPLETED. REPOSITIONED AND ORAL CARE PROVIDED.
--- NOTE | 2019-10-20 05:00 | NUR ---
REPOSITIONED AND ORAL CARE PROVIDED. CONT TO HAVE LOOSE BM.
[2019-10-20 05:25] LABS: BASOPHILS 0 % (0-2); EOSINOPHILS 0 % (0-7); HEMATOCRIT 24.8 % (42.0-54.0); HEMOGLOBIN 8.1 g/dL (13.5-17.5); IMMATURE GRANULOCYTES 0.3 % (0-5); LYMPHOCYTES 3.3 % (15-50); MCH 32.1 pg (26.0-34.0); MCHC 32.7 g/dL (31.0-37.0); MCV 98.4 fL (80.0-100.0); MEAN PLATELET VOLUME 10.9 fL (7.4-10.4); MONOCYTES 3.6 % (2-11); NEUTROPHILS 92.8 % (40-80); RBC 2.52 10x6/uL (4.20-6.10)
[2019-10-20 05:29] LABS: PLATELET COUNT 16 10x3/uL (130-400)
[2019-10-20 05:38] LABS: INR 2.4 (0.85-1.17); PROTIME 25.4 SECONDS (11.6-15.0)
[2019-10-20 05:55] LABS: ALBUMIN 2.3 g/dL (3.4-5.0); ALKALINE PHOSPHATASE 91 U/L (46-116); ALT (SGPT) 170 U/L (10-68); BILIRUBIN - TOTAL 4.61 mg/dL (0.2-1.3); CALC OSMOLALITY 308 mosm/kg (275-300); CALCIUM 8.9 mg/dL (8.5-10.1); CARBON DIOXIDE 23.8 mmol/L (21.0-32.0); CHLORIDE - SERUM 114 mmol/L (98-107); CREATININE - SERUM 0.8 mg/dL (0.6-1.3); GLUCOSE 165 mg/dL (74-106); POTASSIUM - SERUM 3.8 mmol/L (3.5-5.1); PROTEIN - SERUM 4.9 g/dL (6.4-8.2); SODIUM 146 mmol/L (136-145); UREA NITROGEN 52 mg/dL (7-18); eGFR NON AFRICAN AMERICAN > 90 mL/min (90-120)
[2019-10-20 06:34] LABS: MAGNESIUM - SERUM 2.4 mg/dL (1.8-2.4); PHOSPHOROUS 2.5 mg/dL (2.5-4.9)
--- NOTE | 2019-10-20 07:00 | NUR ---
BEDSIDE REPORT RECEIVED. SHIFT ASSESSMENT COMPLETED PER FLOWSHEET, SEE FLOWSHEET FOR INFORMATION. PT FAMILY AT BEDSIDE. WILL CONT TO MONITOR.
--- NOTE | 2019-10-20 09:00 | NUR ---
0900 MEDICATIONS GIVEN.NO ACUTE NEEDS OR DISTRESS NOTED AT THIS TIME. TURNED PER COMFORT. ORAL CARE GIVEN, COPIOUS AMOUNTS OF SECRETIONS SUCTIONED. WILL CONT TO MONITOR.
--- NOTE | 2019-10-20 11:00 | NUR ---
REASSESSMENT COMPLETED PER FLOWSHEET, SEE FLOWSHEET FOR INFORMATION. NO ACUTE NEEDS OR DISTRESS NOTED AT THIS TIME. WILL CONT TO MONITOR.
--- NOTE | 2019-10-20 11:20 | NUR ---
SWITCHED TO PSV. PATIENTS RR INCREASED TO 55. SWITCHED BACK TO AC.
--- NOTE | 2019-10-20 13:00 | NUR ---
PT FAMILY AT BEDSIDE. WILL CONT TO MONITOR.
--- NOTE | 2019-10-20 15:00 | NUR ---
AT BEDSIDE, OGT PULLED. WILL CONT TO MONITOR.
--- NOTE | 2019-10-20 17:00 | NUR ---
PT FAMILY AT BEDSIDE. WILL CONT TO MONITOR.
--- NOTE | 2019-10-20 19:00 | NUR ---
ASSESSMENT COMPLETED. REPOSITIONED AND ORAL CARE COMPLETED. SMALL AMOUNT OF BLEEDING FROM LIPS. APPLIED OINTMENT TO LIPS VIA ORAL CARE KIT.
--- NOTE | 2019-10-20 21:00 | NUR ---
REPOSITIONED AND ORAL CARE COMPLETED.
--- NOTE | 2019-10-20 23:00 | NUR ---
RE-ASSESSMENT COMPLETED. REPOSITIONED AND ORAL CARE COMPLETED. NO CHANGES SINCE LAST ASSESSMENT
[2019-10-21] VITALS (24 sets, daily range): BP systolic 107–164; BP diastolic 55–98
--- NOTE | 2019-10-21 01:00 | NUR ---
CHG BATH GIVEN WITH COMPLETE LINEN CHANGE. REPOSITIONED AND ORAL CARE PROVIDED
--- NOTE | 2019-10-21 03:00 | NUR ---
RE-ASSESSMENT COMPLETED. NO CHANGES SINCE LAST ASSESSMENT. REPOSITIONED AND ORAL CARE PROVIDED
--- NOTE | 2019-10-21 05:00 | NUR ---
REPOSITIONED AND ORAL CARE PROVIDED
[2019-10-21 05:47] LABS: BASOPHILS 0 % (0-2); EOSINOPHILS 0 % (0-7); HEMATOCRIT 23.7 % (42.0-54.0); HEMOGLOBIN 7.7 g/dL (13.5-17.5); IMMATURE GRANULOCYTES 0.4 % (0-5); LYMPHOCYTES 3.3 % (15-50); MCHC 32.5 g/dL (31.0-37.0); MCV 98.3 fL (80.0-100.0); MEAN PLATELET VOLUME 10.4 fL (7.4-10.4); MONOCYTES 2.5 % (2-11); NEUTROPHILS 93.8 % (40-80); RBC 2.41 10x6/uL (4.20-6.10)
[2019-10-21 05:56] LABS: APTT 34.7 SECONDS (22.8-39.4); INR 2.24 (0.85-1.17); PROTIME 24.1 SECONDS (11.6-15.0)
[2019-10-21 06:30] LABS: ALBUMIN 2.2 g/dL (3.4-5.0); ALKALINE PHOSPHATASE 74 U/L (46-116); ALT (SGPT) 148 U/L (10-68); CALC OSMOLALITY 299 mosm/kg (275-300); CALCIUM 8.5 mg/dL (8.5-10.1); CARBON DIOXIDE 24.9 mmol/L (21.0-32.0); CHLORIDE - SERUM 113 mmol/L (98-107); CREATININE - SERUM 0.7 mg/dL (0.6-1.3); GLUCOSE 140 mg/dL (74-106); MAGNESIUM - SERUM 2.2 mg/dL (1.8-2.4); PHOSPHOROUS 2.7 mg/dL (2.5-4.9); POTASSIUM - SERUM 4.1 mmol/L (3.5-5.1); PROTEIN - SERUM 4.7 g/dL (6.4-8.2); SODIUM 144 mmol/L (136-145); UREA NITROGEN 43 mg/dL (7-18); eGFR NON AFRICAN AMERICAN > 90 mL/min (90-120)
[2019-10-21 06:44] LABS: PLATELET COUNT 29 10x3/uL (130-400); WBC 5.2 10x3/uL (4.8-10.8)
--- NOTE | 2019-10-21 07:00 | NUR ---
BEDSIDE REPORT RECEIVED. AT BEDSIDE. NEW ORDERS RECEIVED. SHIFT ASSESSMENT COMPLETED PER FLOWSHEET, SEE FLOWSHEET FOR INFORMATION. NO ACUTE NEEDS OR DISTRESS NOTED AT THIS TIME. WILL CONT TO MONITOR.
--- NOTE | 2019-10-21 08:06 | NUR ---
DR.HURST DONNELLY. WILL CONT TO MONITOR.
--- NOTE | 2019-10-21 08:09 | NUR ---
SPOKE WITH FAMILY ABOUT MEETING WITH . FAMILY AT BEDSIDE. WILL CONT TO MONITOR.
--- NOTE | 2019-10-21 09:00 | NUR ---
FAMILY AT BEDSIDE. FAMILY SPOKE WITH . WILL CONT TO MONITOR.
--- NOTE | 2019-10-21 11:00 | NUR ---
REASSESSMENT COMPLETED PER FLOWSHEET, SEE FLOWSHEET FOR INFORMATION. BLOOD INFUSING. WILL CONT TO MONITOR.
--- NOTE | 2019-10-21 12:06 | NUR ---
CALLED , NO NEW ORDERS RECEIVED. WILL CONT TO MONITOR. BLOOD CONTINUING TO TRANSFUSE.
--- NOTE | 2019-10-21 13:00 | NUR ---
REPOSITIONED PT PER COMFORT. FAMILY AT BEDSIDE. WILL CONT TO MONITOR.
--- NOTE | 2019-10-21 15:00 | NUR ---
REASSESSMENT COMPLETED PER FLOWSHEET, SEE FLOWSHEET FOR INFORMATION. REPOSITINED PT FOR COMFORT. WILL CONT TO MONITOR.
--- NOTE | 2019-10-21 17:00 | NUR ---
FAMILY AT BEDSIDE, NO ACUTE NEEDS OR DISTRESS NOTED AT THIS TIME. REPOSITIONED PT PER COMFORT. WILL CONT TO MONITOR.
[2019-10-22] VITALS (26 sets, daily range): BP systolic 115–162; BP diastolic 60–82
[2019-10-22 04:53] LABS: BASOPHILS 0 % (0-2); EOSINOPHILS 0 % (0-7); HEMATOCRIT 28.2 % (42.0-54.0); HEMOGLOBIN 9.1 g/dL (13.5-17.5); IMMATURE GRANULOCYTES 0.5 % (0-5); MCH 31.2 pg (26.0-34.0); MCHC 32.3 g/dL (31.0-37.0); MCV 96.6 fL (80.0-100.0); MEAN PLATELET VOLUME 10.5 fL (7.4-10.4); MONOCYTES 3.2 % (2-11); NEUTROPHILS 91.3 % (40-80); RDW 19.2 % (11.5-14.5)
[2019-10-22 05:02] LABS: CALC OSMOLALITY 301 mosm/kg (275-300); CALCIUM 8.6 mg/dL (8.5-10.1); CARBON DIOXIDE 27.4 mmol/L (21.0-32.0); CHLORIDE - SERUM 109 mmol/L (98-107); CREATININE - SERUM 0.6 mg/dL (0.6-1.3); GLUCOSE 170 mg/dL (74-106); SODIUM 144 mmol/L (136-145); UREA NITROGEN 42 mg/dL (7-18); eGFR NON AFRICAN AMERICAN > 90 mL/min (90-120)
[2019-10-22 05:10] LABS: APTT 33.9 SECONDS (22.8-39.4); INR 2.27 (0.85-1.17); POTASSIUM - SERUM 3.3 mmol/L (3.5-5.1); PROTIME 24.3 SECONDS (11.6-15.0)
[2019-10-22 05:12] LABS: RBC 2.92 10x6/uL (4.20-6.10)
[2019-10-22 05:21] LABS: PLATELET COUNT 18 10x3/uL (130-400)
--- NOTE | 2019-10-22 07:05 | NUR ---
PT RESTING IN BED, VSS. ETT SECURED. DORAN CATHETER DRAINING HOA TINGED URINE FREELY VIA GRAVITY WITH STAT LOCK IN PLACE. RECTAL TUBE NOTED. PT NOT RESPONDING TO PAINFUL STIMULI, PROPOFOL DECREASED. NO SIGNS OF DISTRESS NOTED. WILL CONT TO FOLLOW POC
--- NOTE | 2019-10-22 09:00 | NUR ---
PT RESTING IN BED, VSS AND WNL. ORAL CARE PROVIDED. PT REPOSITIONED AND PILLOW CASE CHANGED. FAMILY AT BEDSIDE, NO SIGNS OF DISTRESS NOTED. BED ALARM ON. ETT SECURED, WILL CONT TO FOLLOW POC
--- NOTE | 2019-10-22 10:52 | NUR ---
AT BEDSIDE AND PLACED AN OG TUBE. PT TOLERATED WELL. CHEST XRAY ORDERED.
--- NOTE | 2019-10-22 10:56 | NUR ---
SPOKE TO REGARDING STARTING TPN, PER , WILL HOLD OFF ON TPN FOR NOW. IF OGT IS IN PLACE THEN START WITH GIVING MEDICATIONS AND IF PT TOLERATES MEDICATIONS THEN POSSIBLY WILL RESUME TUBE FEEDING. WILL LET WINDCHILL ADMINISTRATOR
[2019-10-22 11:29] LABS: MAGNESIUM - SERUM 1.8 mg/dL (1.8-2.4); PHOSPHOROUS 2.7 mg/dL (2.5-4.9)
--- NOTE | 2019-10-22 12:15 | NUR ---
Nutrition follow-up: NPO 2/2 OGT out; to be replaced today and possibly start TF soon Per Dr. Castaneda, do not start TPN at this time. Labs reviewed Wt: 215# Rectal tube in place Pt intubated, sedated with Propofol @ 7.8 ml/hr RDN following.
--- NOTE | 2019-10-22 12:18 | NUR ---
Pt has a 6cm x 4cm sacral stage 2 pressure injury. It is being protected with mepilex sacral dressing. He is on an overlay mattress and turned q 2 hours and supported with wedges. He is intubated/sedated, has f/c and rectal tube. Recommend continuing with mepilex and turn schedule. Also recommend floating heels to protect from breakdown. Wound care will continue monitoring.
--- NOTE | 2019-10-22 13:00 | NUR ---
PT RESTING IN BED, VSS AND WNL. FAMILY AT BEDSIDE. ETT SECURED. BED ALARM ON. NO SIGNS OF DISTRESS NOTED. WILL CONT TO FOLLOW POC
--- NOTE | 2019-10-22 15:00 | NUR ---
PT RESTING IN BED, VSS AND WNL. BED ALARM ON. ETT SECURED. PT REPOSITIONED. NO SIGNS OF DISTRESS NOTED. WILL CONT TO FOLLOW POC
--- NOTE | 2019-10-22 17:00 | NUR ---
PT RESTING IN BED, VSS AND WNL. BED ALARM ON. NO SIGNS OF DISTRESS NOTED. FAMILY AT BEDSIDE, DENIES ANY NEEDS AT THIS TIME, WILL CONT TO FOLLOW POC
--- NOTE | 2019-10-22 18:13 | NUR ---
PT REPOSITIONED, VSS AND WNL. FAMILY AT BEDSIDE, NO SIGNS OF DISTRESS NOTED. WILL CONT TO FOLLOW POC
[2019-10-23] VITALS (26 sets, daily range): BP systolic 112–151; BP diastolic 57–86
[2019-10-23 05:44] LABS: BASOPHILS 0 % (0-2); EOSINOPHILS 0 % (0-7); HEMATOCRIT 28.3 % (42.0-54.0); HEMOGLOBIN 9.2 g/dL (13.5-17.5); IMMATURE GRANULOCYTES 0.1 % (0-5); LYMPHOCYTES 2.8 % (15-50); MCH 31.6 pg (26.0-34.0); MCHC 32.5 g/dL (31.0-37.0); MCV 97.3 fL (80.0-100.0); MEAN PLATELET VOLUME 12.6 fL (7.4-10.4); MONOCYTES 2.1 % (2-11); RBC 2.91 10x6/uL (4.20-6.10); RDW 19.2 % (11.5-14.5)
[2019-10-23 06:37] LABS: ALBUMIN 2.1 g/dL (3.4-5.0); ALKALINE PHOSPHATASE 75 U/L (46-116); ALT (SGPT) 170 U/L (10-68); BILIRUBIN - TOTAL 6.21 mg/dL (0.2-1.3); CALC OSMOLALITY 293 mosm/kg (275-300); CALCIUM 8.4 mg/dL (8.5-10.1); CARBON DIOXIDE 25.9 mmol/L (21.0-32.0); CHLORIDE - SERUM 109 mmol/L (98-107); CREATININE - SERUM 0.6 mg/dL (0.6-1.3); GLUCOSE 147 mg/dL (74-106); LDH 356 U/L (85-227); MAGNESIUM - SERUM 1.8 mg/dL (1.8-2.4); PHOSPHOROUS 2.8 mg/dL (2.5-4.9); POTASSIUM - SERUM 3.5 mmol/L (3.5-5.1); PROTEIN - SERUM 4.9 g/dL (6.4-8.2); SODIUM 142 mmol/L (136-145); UREA NITROGEN 36 mg/dL (7-18); eGFR NON AFRICAN AMERICAN > 90 mL/min (90-120)
[2019-10-23 06:54] LABS: PLATELET COUNT 23 10x3/uL (130-400)
[2019-10-23 06:59] LABS: INR 2.34 (0.85-1.17)
--- NOTE | 2019-10-23 07:22 | NUR ---
PT RESTING IN BED, VSS AND WNL. ETT SECURED. DORAN CATHETER DRAINING HOA TINGED URINE FREELY VIA GRAVITY. BED ALARM ON. NO SIGNS OF DISTRESS NOTED. WILL CONT TO FOLLOW POC
--- NOTE | 2019-10-23 09:00 | NUR ---
PT RESTING IN BED, VSS AND WNL. BED ALARM ON. FAMILY AT BEDSIDE. PT OPENING EYES AND MOVING HEAD BUT DOES NOT MOVE ARMS OR LEGS TO PAINFUL STIMULI. NO SIGNS OF DISTRESS NOTED. WILL CONT TO FOLLOW POC
[2019-10-23 09:38] LABS: PLATELET ESTIMATE DECREASED
[2019-10-23 09:40] LABS: ANISOCYTOSIS OCC; CRENATED CELLS OCC; ROULEAUX OCC
--- NOTE | 2019-10-23 10:35 | NUR ---
ASSISTED RESP THERAPY WITH CHANGING ENDOTRACH TUBE BELL AND APPLIED A TUBE PROTECTOR TO ETT. PT TOLERATED WELL. VSS AND WNL. BED ALARM ON. NO SIGNS OF DISTRESS NOTED. WILL CONT TO FOLLOW POC
--- NOTE | 2019-10-23 11:00 | NUR ---
HERE AND TOLD NURSE TO START PULMOCARE AT 10ML/HR.
--- NOTE | 2019-10-23 12:30 | NUR ---
PT RESTING IN BED, VSS AND WNL. FAMILY AT BEDSIDE, BED ALARM ON. NO SIGNS OF DISTRESS NOTED. WILL CONT TO FOLLOW POC
--- NOTE | 2019-10-23 14:30 | NUR ---
PT RESTING IN BED. PULMOCARE STARTED AT 10ML/HR ORDERED BY . BED ALARM ON. NO SIGNS OF DISTRESS NOTED AT THIS TIME. WILL CONT TO FOLLOW POC
--- NOTE | 2019-10-23 19:00 | NUR ---
REPORT REC'D, PT CARE ASSUMED. ASSESSMENT COMPLTED, SEE FLOWSHEETS FOR ALL FINDINGS. PT SEDATED ON VENT AROUSES EASILY WITH VOICES, SR ON CM WITH HR AT 63BPM, LUNG SOUNDS CRACKLES TO ULB WITH DIMINISHED TO LLB, UNLABORED ON VENT.FOEY CATH TO GRAVITY WITH HOA DRAINAGE TO BAG, RECTAL TUBE IN PLACE WITH LIQUID STOOL TO BAG. RT IJ CVL LINE INTACT WITH IV FLUIDS INFUSING VIA PUMP. PPP. CONT TO MONITOR.
--- NOTE | 2019-10-23 21:00 | NUR ---
FAMILY AT BEDSIDE. UPDATED AND QUESTIONS ANSWERED.
--- NOTE | 2019-10-23 23:00 | NUR ---
REASSESSMENT COMPLETED PER FLOWSHEETS. PT SEDATED ON VENT WITHOUT ANY SIGNS OF DISTRESS, SB ON CM WIHT HR AT 58BPM. NO ACUTE CHANGES NOTED IN PT'S STATUS AT THIS TIME. CONT TO MONITOR.
[2019-10-24] VITALS (25 sets, daily range): BP systolic 113–178; BP diastolic 7–96
--- NOTE | 2019-10-24 03:00 | NUR ---
REASSESSMENT COMPLETED PER FLOWSHEETS. PT SEDATED ON VENT, OPENS EYES WITH VOICES, NO ACUTE CHANGES IN PTS STATUS NOTED. VSS. CPOC.
[2019-10-24 05:40] LABS: BASOPHILS 0 % (0-2); EOSINOPHILS 0 % (0-7); HEMOGLOBIN 9.3 g/dL (13.5-17.5); LYMPHOCYTES 4.5 % (15-50); MCH 31.5 pg (26.0-34.0); MCHC 33.2 g/dL (31.0-37.0); MONOCYTES 3.9 % (2-11); NEUTROPHILS 91.6 % (40-80); RBC 2.95 10x6/uL (4.20-6.10); RDW 18.4 % (11.5-14.5)
[2019-10-24 05:53] LABS: INR 2.33 (0.85-1.17); PROTIME 24.9 SECONDS (11.6-15.0)
[2019-10-24 06:07] LABS: ALBUMIN 2.4 g/dL (3.4-5.0); ALKALINE PHOSPHATASE 85 U/L (46-116); ALT (SGPT) 165 U/L (10-68); BILIRUBIN - TOTAL 6.12 mg/dL (0.2-1.3); CALC OSMOLALITY 288 mosm/kg (275-300); CALCIUM 8.4 mg/dL (8.5-10.1); CARBON DIOXIDE 28.9 mmol/L (21.0-32.0); CHLORIDE - SERUM 104 mmol/L (98-107); CREATININE - SERUM 0.6 mg/dL (0.6-1.3); GLUCOSE 172 mg/dL (74-106); MAGNESIUM - SERUM 1.6 mg/dL (1.8-2.4); PHOSPHOROUS 2.4 mg/dL (2.5-4.9); PROTEIN - SERUM 5.1 g/dL (6.4-8.2); SODIUM 139 mmol/L (136-145); UREA NITROGEN 32 mg/dL (7-18); eGFR NON AFRICAN AMERICAN > 90 mL/min (90-120)
[2019-10-24 06:36] LABS: MCV 94.9 fL (80.0-100.0); PLATELET COUNT 14 10x3/uL (130-400); WBC 5.1 10x3/uL (4.8-10.8)
[2019-10-24 06:43] LABS: POTASSIUM - SERUM 2.9 mmol/L (3.5-5.1)
--- NOTE | 2019-10-24 07:00 | NUR ---
PT RESTING IN BED, VSS AND WNL, ETT SECURED. PT TOLERATING TF AT THIS TIME, DORAN CATHETER DRAINING HOA TINGED URINE FREELY VIA GRAVITY. FECAL TUBE NOTED. NO SIGNS OF DISTRESS NOTED AT THIS TIME, WILL CONT TO FOLLOW POC
--- NOTE | 2019-10-24 09:00 | NUR ---
PT RESTING IN BED, VSS AND WNL. BED ALARM ON. CALL LIGHT WITHIN REACH. NO SIGNS OF DISTRESS NOTED. PT REPOSITIONED. WILL CONT TO FOLLOW POC
--- NOTE | 2019-10-24 11:00 | NUR ---
PT RESTING IN BED. VSS AND WNL. BED ALARM ON. ETT SECURED. DRESSING CHANGE PROVIDED TO RIGHT IJ CENTRAL LINE. NO SIGNS OF DISTRESS NOTED. WILL CONT TO FOLLOW POC
--- NOTE | 2019-10-24 13:00 | NUR ---
PT RESTING IN BED, VSS AND WNL. BED ALARM ON. ETT SECURED. NO SIGNS OF DISTRESS NOTED. WILL CONT TO FOLLOW POC
--- NOTE | 2019-10-24 15:00 | NUR ---
PT RESTING IN BED, VSS AND WNL. BED ALARM ON. ETT SECURED. DENIES ANY NEEDS AT THIS TIME, WILL CONT TO FOLLOW POC
--- NOTE | 2019-10-24 17:00 | NUR ---
PT REPOSITIONED, VSS AND WNL. BED ALARM ON. ETT SECURED. NO SIGNS OF DISTRESS NOTED AT THIS TIME, WILL CONT TO FOLLOW POC
--- NOTE | 2019-10-24 18:28 | NUR ---
PT REPOSITIONED. VSS AND WNL. ETT SECURE. BED ALARM ON. NO SIGNS OF DISTRESS NOTED. WILL CONT TO FOLLOW POC
--- NOTE | 2019-10-24 20:10 | NUR ---
SHIFT ASSESSMENT COMPLETED, FAMILY AT BEDSIDE MOST QUESTIONS ANSWERED VSS CPOC
--- NOTE | 2019-10-24 20:46 | NUR ---
FAMILY CALLED PW OBTAINED - UPDATE GIVEN, ALL QUESTIONS ANSWERED AT THIS TIME
--- NOTE | 2019-10-24 21:45 | NUR ---
HS MEDICATIONS RECEIVED SEE EMAR FOR ADMINISTRATION
--- NOTE | 2019-10-24 23:10 | NUR ---
REASSESSMENT COMPLETED SEE FLOWSHEET
[2019-10-25] VITALS (24 sets, daily range): BP systolic 109–167; BP diastolic 48–93
--- NOTE | 2019-10-25 03:50 | NUR ---
REASSESSMENT COMPLETED SEE FLOWSHEET
--- NOTE | 2019-10-25 06:15 | NUR ---
PT REPOSITIONED FOR COMFORT, NO TUBE FEED AVAILABLE, UNABLE TO LEAVE THE UNIT AT THIS TIME DUE TO PATIENT TO NURSE RATIO
[2019-10-25 06:35] LABS: INR 2.15 (0.85-1.17); PROTIME 23.3 SECONDS (11.6-15.0)
[2019-10-25 06:39] LABS: BASOPHILS 0 % (0-2); EOSINOPHILS 0 % (0-7); HEMATOCRIT 28.9 % (42.0-54.0); HEMOGLOBIN 9.6 g/dL (13.5-17.5); IMMATURE GRANULOCYTES 0.2 % (0-5); LYMPHOCYTES 4.7 % (15-50); MCH 31.3 pg (26.0-34.0); MCHC 33.2 g/dL (31.0-37.0); MCV 94.1 fL (80.0-100.0); MEAN PLATELET VOLUME 10.6 fL (7.4-10.4); MONOCYTES 4.1 % (2-11); RBC 3.07 10x6/uL (4.20-6.10); RDW 18.1 % (11.5-14.5); WBC 4.7 10x3/uL (4.8-10.8)
[2019-10-25 06:47] LABS: PLATELET COUNT 31 10x3/uL (130-400)
--- NOTE | 2019-10-25 07:00 | NUR ---
REPORT RECEIVED. ASSESSMENT COMPLETE PER FLOW SHEET. VSS. ORAL ENDOTRACH CARE ADM. WILL CONTINUE TO MONITOR
[2019-10-25 07:19] LABS: CALC OSMOLALITY 284 mosm/kg (275-300); CALCIUM 8.9 mg/dL (8.5-10.1); CARBON DIOXIDE 26.9 mmol/L (21.0-32.0); CHLORIDE - SERUM 102 mmol/L (98-107); CREATININE - SERUM 0.6 mg/dL (0.6-1.3); GLUCOSE 189 mg/dL (74-106); PHOSPHOROUS 2.1 mg/dL (2.5-4.9); POTASSIUM - SERUM 3.7 mmol/L (3.5-5.1); SODIUM 137 mmol/L (136-145); UREA NITROGEN 30 mg/dL (7-18); eGFR NON AFRICAN AMERICAN > 90 mL/min (90-120)
--- NOTE | 2019-10-25 08:00 | NUR ---
FAMILY AT BEDSIDE UPSET AND CRYING, NURSE ASKED WHAT WAS WRONG STATED HATING SEEING THEIR DAD UPSET AND UNCOMFORTABLE PT NOW THRASHING AROUND IN BED HEAD NEAR BED RAIL. PT REPOSITIONED UP IN BED ON L SIDE AWAY FROM BEDRAIL. DAUGHTERS AGGITATING PT MORE BY TOUCH, ATTEMPT TO EXPLAIN TO FAMILY WITH NO ACKNOWLEDGMENT STATING PT NEEDS MORE SEDATION, EXPLAINED DR HAYDEN ORDERS OF KEEPING PT ON LIGHT SEDATION TO INCREASE RESPIRATORY EFFORTS. PT DAUGHTERS DEMANDING PT TO BE SUCTIONED ETT AND ORAL MULTIPLE TIMES IN SMALL TIME FRAME. NURSE EXPLAINED THAT THIS ACTUALLY HINDERS PT OWN COUGH REFLEX AND RESPIRATORY EFFORTS AND CAUSES MUCOSAL IRRITATION WITH CURRENT BLEEDING ISSUES ETC WITH NO ACKNOWLEDGMENT. PT FAMILY STATING TO PT "IT WILL GET BETTER WITH YOUR NEW TRACH" PT SHAKING HIS HEAD NO VIGEROUSLY. NURSE ASKED PT WANTED TRACH, PT SHOOK HEAD NO, NURSE ASKED IF PT REALIZED IF THE ETT WAS REMOVED HE WOULD STOP BREATHING PT SHOOK HIS HEAD YES. PT AT BEDSIDE DURING CONVERSATION AND UPSET AT THIS TIME.
--- NOTE | 2019-10-25 09:01 | NUR ---
Nutrition follow-up: Intubated, sedated Pulmocare off at this time 2/2 CPAP trails Labs reviewed Wt: 213# Recommend increasing TF to goal rate of 50 ml/hr RDN following.
--- NOTE | 2019-10-25 09:40 | NUR ---
DR DIA AT BEDSIDE GIVEN UDPATE NEW ORDERS RECEIVED.
--- NOTE | 2019-10-25 11:00 | NUR ---
REASSESSMENT COMPLETE PER FLOW SHEET VSS NO NEW CHANGES WILL CONTINUE TO MONITOR
--- NOTE | 2019-10-25 11:35 | NUR ---
DR DIA AT BEDSIDE. DENG WITH CASE MANAGEMENT GIVEN UDPATE PT INFORMATION SENT TO [facility] AT [facility]
--- NOTE | 2019-10-25 13:30 | NUR ---
FAMILY GIVEN UPDATE REGAURDING [facility] CONSULT. ALL QUESTIONS ANSWERED
--- NOTE | 2019-10-25 13:38 | MORECARE ---
CASE MANAGEMENT DISCHARGE SUMMARY PATIENT: DAISHA MEYER UNIT: [id number] ADM DATE: 09/26/19 AGE: 59 : 56 SEX: M ROOM/BED: D.2310 AUTHOR: NIKA,DOC PHYSICIAN: REFERRING PHYSICIAN: JAMES CLARK MD DATE OF SERVICE: 10/25/19 Discharge Plan Patient Name: DAISHA MEYER Facility: [facility]:[place] : 1960 Planned Disposition: Home Anticipated Discharge Date: Discharge Date: Expected LOS: Initial Reviewer: [email or web address] Initial Review Date: 10/01/2019 Generated: 10/25/19 2:37 pm DCP- Discharge Planning Updated by [email or web address]: Ida Schrader on 10/01/19 4:[address] Patient Name: DAISHA MEYER Admission Status: ER Accout number: [id number] Admission Date: 09-26-2019 : 1960 Admission Diagnosis: Attending: NADIRA Current LOS: 5 Anticipated DC Date: Planned Disposition: Home Primary Insurance: [employer] [place] [employer] [facility] Discharge Planning Comments: CM met with patient's spouse Paola at bedside after explaining CM role and obtaining verbal consent. Patient lives at home with his where he is independent with his care and plans to return there upon discharge. Patient feels this would be a safe discharge. CM discussed availability / needs of home health and medical equipment. Patient's uncertain of any discharge needs at this time. Patient will have his family drive him home upon discharge. CM will continue to follow and assist as needed with discharge planning / needs. Electronics Manufacturer: Ida Schrader DCPIA - Discharge Planning Initial Assessment Updated by [email or web address]: Ida Schrader on 10/01/19 5:03 pm * How many steps to enter\exit or inside your home? * PCP EDUARDO * Pharmacy [facility] [address] * Preadmission Environment Home with Family * ADLs Independent * Equipment None * List name and contact numbers for known caregivers / representatives who currently or will assist patient after discharge: PAOLA MEYER - SPOUSE - [phone] * Verbal permission to speak to the caregivers and representatives has been obtained from the patient. N/A * Community resources currently utilized None * Additional services required to return to the preadmission environment? No * Can the patient safely return to the preadmission environment? Yes * Has this patient been hospitalized within the prior 30 days at any hospital? No External Providers External Provider: Kathy Guzman [facility] Next Contact Date: Service Request Date: Service Type: Resolution: Reviewer: Comments: Last DP export: 10/01/19 4:06 p Patient Name: DAISHA MEYER Page [id number] at 1338 All edits/amendments must be made on the electronic document DICTATION DATE: 10/25/191336 SUPPLY CHAIN VICE PRESIDENT: REYNOLD 10/25/19 1337 RPT#: [id number] DC DATE: STATUS: ADM IN [facility] [address] [place] [address] END OF REPORT
--- NOTE | 2019-10-25 15:00 | NUR ---
REASSESSMENT COMPLETE PER FLOW SHEET. VSS. NO NEW CHANGES WILL CONTINUE TO MONITOR
--- NOTE | 2019-10-25 19:30 | NUR ---
PT SEDATED, ETT PATENT TO VENT ON A/C, RATE 15, TV 600, PEEP 5, OGT PATENT WITH PULMOCARE, PLACEMENT VERIFIED WITH AUSCULTATION, RIGHT IJ CVL INTACT WITH MULTI FLUIDS INFUSING, DORAN PATENT TO BSD, RECTAL TUBE IN PLACE, SCD'S IN USE, +4 PITTING EDEMA TO ARMS AND LEGS, VITALS STABLE, WILL CONT TO MONITOR
--- NOTE | 2019-10-25 21:00 | NUR ---
BETAPACE AND CARDIZEM HELD DUE TO BRADYCARDIA, PT REMAINS SEDATED, WILL CONT TO MONITOR
--- NOTE | 2019-10-25 23:00 | NUR ---
NO CHANGES IN PT STATUS, REMAINS SEDATED, VITALS STABLE
[2019-10-26] VITALS (24 sets, daily range): BP systolic 110–148; BP diastolic 48–76
--- NOTE | 2019-10-26 01:00 | NUR ---
PT RESTING QUIETLY WITH NO CHANGES, VITALS STABLE
--- NOTE | 2019-10-26 02:54 | NUR ---
PT REMAINS SEDATED, VITALS STABLE, DORAN EMPTIED [id number] CC, WILL CONT TO MONITOR
--- NOTE | 2019-10-26 04:50 | NUR ---
AM LAB DRAWN FROM RIGHT IJ CVL. PT SEDATED WITH NO DISTRESS, VITALS STABLE
[2019-10-26 06:02] LABS: MCH 31.3 pg (26.0-34.0); MCHC 33.6 g/dL (31.0-37.0); MCV 92.9 fL (80.0-100.0); MEAN PLATELET VOLUME 13.5 fL (7.4-10.4); RDW 17.5 % (11.5-14.5)
[2019-10-26 06:27] LABS: HEMATOCRIT 22.3 % (42.0-54.0); HEMOGLOBIN 7.5 g/dL (13.5-17.5)
[2019-10-26 06:28] LABS: PLATELET COUNT 17 10x3/uL (130-400)
--- NOTE | 2019-10-26 07:00 | NUR ---
BEDSIDE REPORT RECEIVED. SHIFT ASSESSMENT COMPLETED PER FLOWSHEET, SEE FLOWSHEET FOR INFORMATION. NO ACUTE NEEDS OR DISTRESS NOTED AT THIS TIME, LABS DRAWN. VSS. WILL CONT TO MONITOR.
[2019-10-26 07:52] LABS: APTT 34.3 SECONDS (22.8-39.4); BASOPHILS 1 % (0-2); INR 2.43 (0.85-1.17); LYMPHOCYTES 3 % (15-50); MONOCYTES 5 % (2-11); NEUTROPHILS 90 % (40-80); PLATELET ESTIMATE DECREASED; PROTIME 25.7 SECONDS (11.6-15.0); SCHISTOCYTES OCC
[2019-10-26 07:53] LABS: TARGET CELLS OCC
[2019-10-26 07:54] LABS: ALBUMIN 2.8 g/dL (3.4-5.0); ALKALINE PHOSPHATASE 87 U/L (46-116); ALT (SGPT) 142 U/L (10-68); BILIRUBIN - TOTAL 5.03 mg/dL (0.2-1.3); CALC OSMOLALITY 289 mosm/kg (275-300); CALCIUM 8.2 mg/dL (8.5-10.1); CARBON DIOXIDE 34.2 mmol/L (21.0-32.0); CHLORIDE - SERUM 99 mmol/L (98-107); CREATININE - SERUM 0.6 mg/dL (0.6-1.3); GLUCOSE 204 mg/dL (74-106); MAGNESIUM - SERUM 1.6 mg/dL (1.8-2.4); PHOSPHOROUS 2.5 mg/dL (2.5-4.9); PROTEIN - SERUM 5.4 g/dL (6.4-8.2); SODIUM 139 mmol/L (136-145); UREA NITROGEN 28 mg/dL (7-18); eGFR NON AFRICAN AMERICAN > 90 mL/min (90-120)
[2019-10-26 07:56] LABS: POTASSIUM - SERUM 2.3 mmol/L (3.5-5.1)
--- NOTE | 2019-10-26 08:43 | NUR ---
Nutrition follow-up: Pulmocare infusing @ 20 ml/hr; to increase to goal rate of 45 ml/hr per Dr. Castaneda 20 ml Q [address] Castaneda Labs reviewed Pt remains intubated, sedated RDN following.
--- NOTE | 2019-10-26 09:00 | NUR ---
FAMILY AT BEDSIDE, ORAL CARE GIVEN TO PT. WILL CONT TO MONITOR.
--- NOTE | 2019-10-26 11:00 | NUR ---
REASSESSMENT COMPLETED PER FLOWSHEET, SEE FLOWSHEET FOR INFORMATION. TURNED PT PER COMFORT. WILL CONT TO MONITOR.
--- NOTE | 2019-10-26 13:00 | NUR ---
FAMILY AT BEDSIDE, WILL CONT TO MONITOR.
--- NOTE | 2019-10-26 15:00 | NUR ---
REASSESSMENT COMPLETED PER FLOWSHEET, SEE FLOWSHEET FOR INFORMATION. WILL CONT TO MONITOR.
--- NOTE | 2019-10-26 17:00 | NUR ---
NO ACUTE NEEDS OR DISTRESS NOTED AT THIS TIME. WILL CONT TO MONITOR.
--- NOTE | 2019-10-26 18:26 | MORECARE ---
CASE MANAGEMENT DISCHARGE SUMMARY PATIENT: DAISHA MEYER UNIT: [id number] ADM DATE: 09/26/19 AGE: 59 : 56 SEX: M ROOM/BED: D.2310 AUTHOR: NIKA,DOC PHYSICIAN: REFERRING PHYSICIAN: JAMES CLARK MD DATE OF SERVICE: 10/26/19 Discharge Plan Patient Name: DAISHA MEYER Facility: [facility]:[place] : 1960 Planned Disposition: Home Anticipated Discharge Date: Discharge Date: Expected LOS: Initial Reviewer: [id number] Initial Review Date: 10/01/2019 Generated: 10/26/19 7:25 pm Comments DCP- Discharge Planning Updated by [email or web address]: Ida Schrader on 10/26/19 5:[address] LATE ENTRY 10/25/18 CM received notification of LTACH request. CM spoke with patient' spouse and son regarding LTACH placement. HERIBERTO signed for [facility] Castellanos in [place]. Referral packet faxed over. CM awaiting to hear back from LTACH regarding referral. CM will continue to follow and assist as needed with discharge planning / needs DCP- Discharge Planning Updated by [email or web address]: Ida Schrader on 10/01/19 4:[address] Patient Name: DAISHA MEYER Admission Status: ER Accout number: [id number] Admission Date: 09-26-2019 : 1960 Admission Diagnosis: Attending: NADIRA Current LOS: 5 Anticipated DC Date: Planned Disposition: Home Primary Insurance: [place] [employer] [facility] Discharge Planning Comments: CM met with patient's spouse Paola at bedside after explaining CM role and obtaining verbal consent. Patient lives at home with his where he is independent with his care and plans to return there upon discharge. Patient feels this would be a safe discharge. CM discussed availability / needs of home health and medical equipment. Patient's uncertain of any discharge needs at this time. Patient will have his family drive him home upon discharge. CM will continue to follow and assist as needed with discharge planning / needs. Improvement Intern: Ida Schrader DCPIA - Discharge Planning Initial Assessment Updated by [id number]: Ida Schrader on 10/01/19 5:03 pm * How many steps to enter\exit or inside your home? * PCP EDUARDO * Pharmacy [facility] [address] * Preadmission Environment Home with Family * ADLs Independent * Equipment None * List name and contact numbers for known caregivers / representatives who currently or will assist patient after discharge: PAOLA MEYER - SPOUSE - [phone] * Verbal permission to speak to the caregivers and representatives has been obtained from the patient. N/A * Community resources currently utilized None * Additional services required to return to the preadmission environment? No * Can the patient safely return to the preadmission environment? Yes * Has this patient been hospitalized within the prior 30 days at any hospital? No Last DP export: 10/25/19 12:38 pm Patient Name: DAISHA MEYER Page [id number] at 1826 All edits/amendments must be made on the electronic document DICTATION DATE: 10/26/191824 PEDIATRIC CRITICAL CARE NURSE: REYNOLD 10/26/191824 RPT#: [id number] DC DATE: STATUS: ADM IN [facility] [address] [place] [address] END OF REPORT
--- NOTE | 2019-10-26 19:00 | NUR ---
PT SEDATED, OPENS EYES TO STIMULI, ETT PATENT TO VENT ON A/C, OGT IN PLACE AND VERIFIED WITH AUSCULTATION, PULMOCARE @ 20 CC/HR, RIGHT IJ CVL INTACT WITH IVF'S INFUSING, +4 PITTING EDEMA TO EXTREMETIES, DORAN PATENT TO BSD, RECTAL TUBE IN PLACE TO BSD, SCD'S TO BILAT LOWER LEGS, VITALS STABLE
--- NOTE | 2019-10-26 21:15 | NUR ---
PT REMAINS SEDATED, FAMILY PRESENT AT BEDSIDE, DISCUSSED CARE AND MEDS WITH FAMILY, VITALS STABLE, WILL CONT TO MONITOR
--- NOTE | 2019-10-26 23:00 | NUR ---
PT RESTING QUIETLY, REMAINS SEDATED ON VENT, VITALS STABLE
[2019-10-27] VITALS (24 sets, daily range): BP systolic 103–164; BP diastolic 52–87
--- NOTE | 2019-10-27 01:00 | NUR ---
REPOSITIONED FOR COMFORT,NO DISTRESS NOTED, VITALS STABLE
[2019-10-27 01:02] LABS: APPEARANCE CLEAR (CLEAR); BILIRUBIN NEGATIVE (NEGATIVE); COLOR YELLOW (YELLOW); GLUCOSE NEGATIVE (NEGATIVE); KETONE NEGATIVE (NEGATIVE); NITRITE NEGATIVE (NEGATIVE); PROTEIN NEGATIVE (NEGATIVE); SPECIFIC GRAVITY 1.005 (1.005-1.020); UROBILINOGEN NORMAL (NORMAL)
[2019-10-27 01:03] LABS: WHITE CELLS - URINE 0-5 /hpf (NEGATIVE)
--- NOTE | 2019-10-27 03:15 | NUR ---
PT REMAINS SEDATED WITH NO CHANGES IN STATUS, OPENS EYES TO STIMULI BRIEFLY, WILL CONT TO MONITOR
--- NOTE | 2019-10-27 05:10 | NUR ---
SPOKE WITH PT DAUGHTER, UPDATED ON PT FOR THE NIGHT, NO CHANGES
[2019-10-27 06:14] LABS: BASOPHILS 0 % (0-2); EOSINOPHILS 0 % (0-7); HEMATOCRIT 24.1 % (42.0-54.0); HEMOGLOBIN 8.1 g/dL (13.5-17.5); IMMATURE GRANULOCYTES 14.7 % (0-5); LYMPHOCYTES 6.6 % (15-50); MCH 31.6 pg (26.0-34.0); MCHC 33.6 g/dL (31.0-37.0); MCV 94.1 fL (80.0-100.0); MONOCYTES 7.6 % (2-11); NEUTROPHILS 71.1 % (40-80); RBC 2.56 10x6/uL (4.20-6.10); RDW 17.4 % (11.5-14.5); WBC 2.1 10x3/uL (4.8-10.8)
[2019-10-27 06:17] LABS: PLATELET COUNT 8 10x3/uL (130-400)
[2019-10-27 06:23] LABS: ALBUMIN 3.3 g/dL (3.4-5.0); ALKALINE PHOSPHATASE 96 U/L (46-116); ALT (SGPT) 136 U/L (10-68); BILIRUBIN - TOTAL 5.76 mg/dL (0.2-1.3); CALC OSMOLALITY 291 mosm/kg (275-300); CALCIUM 8.2 mg/dL (8.5-10.1); CARBON DIOXIDE 37.1 mmol/L (21.0-32.0); CHLORIDE - SERUM 97 mmol/L (98-107); CREATININE - SERUM 0.6 mg/dL (0.6-1.3); GLUCOSE 240 mg/dL (74-106); MAGNESIUM - SERUM 1.6 mg/dL (1.8-2.4); PHOSPHOROUS 2.1 mg/dL (2.5-4.9); PROTEIN - SERUM 5.5 g/dL (6.4-8.2); SODIUM 140 mmol/L (136-145); UREA NITROGEN 26 mg/dL (7-18); eGFR NON AFRICAN AMERICAN > 90 mL/min (90-120)
[2019-10-27 06:25] LABS: POTASSIUM - SERUM 2.5 mmol/L (3.5-5.1)
[2019-10-27 06:30] LABS: INR 2.59 (0.85-1.17)
--- NOTE | 2019-10-27 07:00 | NUR ---
BEDSIDE REPORT RECEIVED. SHIFT ASSESSMENT COMPLETED PER FLOWSHEET, SEE FLOWSHEET FOR INFORMATION. NO ACUTE NEEDS OR DISTRESS NOTED AT THIS QUINTEN, TURNED PT PER COMFORT. VSS. WILL CONT TO MONITOR.
--- NOTE | 2019-10-27 09:00 | NUR ---
FAMILY AT BEDSIDE, NO ACUTE NEEDS OR DISTRESS NOTED AT THIS TIME. 0900 MEDICATIONS GIVEN. WILL CONT TO MONITOR.
--- NOTE | 2019-10-27 10:22 | NUR ---
PT FAMILY ON PHONE WITH REGARDING CONTINUING CARE. WILL CONT TO MONITOR.
--- NOTE | 2019-10-27 11:00 | NUR ---
REASSESSMENT COMPLETED PER FLOWSHEET, SEE FLOWSHEET FOR INFORMATION. AT BEDSIDE TALKING WITH FAMILY ABOUT CARE. NO ACUTE NEEDS OR DISTRESS NOTED AT THIS TIME. WILL CONT TO MONITOR.
--- NOTE | 2019-10-27 13:00 | NUR ---
FAMILY AT BEDSIDE, NO ACUTE NEEDS OR DISTRESS NOTED AT THIS TIME. TURNED PT PER COMFORT. COMPLETE LINEN CHANGE COMPLETED. WILL CONT TO MONITOR.
--- NOTE | 2019-10-27 14:53 | NUR ---
PT FAMILY IS REQUESTING TO CHANGE ATTENDING MD FROM TO [facility]. ASKED MARVIN SEGOVIA FOR PERMISSION TO CHANGE PT TO [facility]. LUCA WONG GAVE APPROVAL. SPOKE WITH . PER , SHE WILL NOT TAKE PT AND NURSING COULD SPEAK TO ON TUESDAY AND SEE IF HE WOULD TAKE PT. NOTIFIED LUCA WONG OF 'S DECISION. NOTIFED MANAGER INVESTIGATIONS. WILL SPEAK WITH MANAGER INVESTIGATIONS. WILL CONT TO MONITOR.
--- NOTE | 2019-10-27 15:00 | NUR ---
REASSESSMENT COMPLETED PER FLOWSHEET, SEE FLOWSHEET FOR INFORMATION. DAIRY AND FOOD LABORATORY ASSISTANT AND SPOKE WITH FAMILY, FAMILY INSIST ON A NEW PRIMARY DOCTOR. SPOKE WITH FAMILY ABOUT TRACH/PEG/CVL, FAMILY STATED THEY ARE UNSURE ABOUT WHEN THEY WANT TO DO IT. WILL CONT TO MONITOR.
--- NOTE | 2019-10-27 17:00 | NUR ---
PT TURNED PER COMFORT. NO ACUTE NEEDS OR DISTRESS NOTED AT THIS TIME. WILL CONT TO MONITOR.
--- NOTE | 2019-10-27 19:30 | NUR ---
ASSESSMENT COMPLETED, PT SEDATED, ETT PATENT TO VENT, FIO2 @ 65%, SPO2 93, OGT IN PLACE WITH PULMOCARE @ 30 CC/HR, RIGHT IJ CVL INTACT WITH IVF INFUSING, DORAN PATENT TO BSD, RECTAL TUBE IN PLACE WITH LIQUID BROWN STOOL, SCD'S TO BILAT LOWER LEGS, PITTING EDEMA TO EXTREMETIES, VITALS STABLE, REPOSITIONED FOR COMFORT
--- NOTE | 2019-10-27 21:15 | NUR ---
FAMILY PRESENT, DISCUSSED PT HEALTH STATUS, ENCOURAGED TO CONSIDER CHANGING CODE STATUS, PT RESTING QUIETLY
--- NOTE | 2019-10-27 23:15 | NUR ---
PT REMAINS SEDATED, ABX INFUSING VIA CVL, VITALS REMAIN STABLE, WILL CONT TO MONITOR
[2019-10-28] VITALS (25 sets, daily range): BP systolic 96–145; BP diastolic 51–711
--- NOTE | 2019-10-28 01:15 | NUR ---
PT BATHED AND SHAVED, DRESSING CHANGED TO CVL SITE, VITALS STABLE
--- NOTE | 2019-10-28 03:15 | NUR ---
OPENS EYES TO STIMULI, FIO2 REMAINS AT 65%, SPO2 1OO%, VITALS STABLE, NO DISTRESS NOTED
[2019-10-28 04:33] LABS: HEMATOCRIT 22.5 % (42.0-54.0); MCH 31.4 pg (26.0-34.0); MCHC 32.9 g/dL (31.0-37.0); MCV 95.3 fL (80.0-100.0); MEAN PLATELET VOLUME 9.1 fL (7.4-10.4); RBC 2.36 10x6/uL (4.20-6.10); RDW 17.4 % (11.5-14.5); WBC 2.2 10x3/uL (4.8-10.8)
[2019-10-28 04:35] LABS: HEMOGLOBIN 7.4 g/dL (13.5-17.5); PLATELET COUNT 26 10x3/uL (130-400)
[2019-10-28 04:44] LABS: APTT 33.6 SECONDS (22.8-39.4); INR 2.45 (0.85-1.17); PROTIME 25.8 SECONDS (11.6-15.0)
[2019-10-28 04:54] LABS: ALBUMIN 2.9 g/dL (3.4-5.0); ALKALINE PHOSPHATASE 116 U/L (46-116); ALT (SGPT) 119 U/L (10-68); BILIRUBIN - TOTAL 5.31 mg/dL (0.2-1.3); CALC OSMOLALITY 293 mosm/kg (275-300); CALCIUM 8.3 mg/dL (8.5-10.1); CHLORIDE - SERUM 98 mmol/L (98-107); CREATININE - SERUM 0.6 mg/dL (0.6-1.3); GLUCOSE 244 mg/dL (74-106); PHOSPHOROUS 1.9 mg/dL (2.5-4.9); PROTEIN - SERUM 5.2 g/dL (6.4-8.2); SODIUM 141 mmol/L (136-145); UREA NITROGEN 27 mg/dL (7-18); eGFR NON AFRICAN AMERICAN > 90 mL/min (90-120)
[2019-10-28 04:57] LABS: CARBON DIOXIDE 41.4 mmol/L (21.0-32.0); POTASSIUM - SERUM 2.8 mmol/L (3.5-5.1)
--- NOTE | 2019-10-28 05:10 | NUR ---
CRITICAL LAB RESULTS CALLED TO DR MURILLO, ORDERS RECIEVED, PT REMAINS SEDATED, VITALS STABLE
[2019-10-28 05:30] LABS: LYMPHOCYTES 10 % (15-50); MONOCYTES 10 % (2-11); NEUTROPHILS 76 % (40-80)
[2019-10-28 05:31] LABS: PLATELET ESTIMATE DECREASED
--- NOTE | 2019-10-28 07:00 | NUR ---
BEDSIDE REPORT RECEIVED. SHIFT ASSESSMENT COMPLETED PER FLOWSHEET. NEW ORDERS RECEIVED. 1 UNIT OF BLOOD STARTED TRANSFUSING. NO ACUTE NEEDS OR S/S OF DISTRESS NOTED AT THIS TIME. VSS. WILL CONT TO MONITOR.
--- NOTE | 2019-10-28 08:35 | NUR ---
MAURILIO FLOWERS AT BEDSIDE. MAURILIO ASKED PT IF SHE HAD ANY QUESTIONS AND THE STATED "NO I DON'T". PT WAS RECORDING THE CONVERSATION, CHARGE NURE AND GRAND SCRIBE NOTIFIED. CHARGE NURSE AND GRAND SCRIBE SPOKE WITH PT ABOUT HIPPA VIOLATIONS AND OUR RULES, PT THEN ASKED IF SHE COULD RECORD OUR CONVERSATIONS TO SEND TO DAUGHTER [place], CHARGE NURSE ONCE AGAIN STATED OUR RULES AND HIPPA VIOLATIONS TO HER. PT THEN VERBALIZED UNDERTSTANDING. NO ACUTE NEEDS OR DISTRESS NOTED AT THIS TIME. STILL AT BEDSIDE. WILL CONT TO MONITOR.
--- NOTE | 2019-10-28 09:00 | NUR ---
PT CAME OUT OF PT ROOM AND ASKED FOR CONTRACT ADMINISTRATION SPECIALIST TO COME OVER AND SPEAK WITH HER, SHE STATED "I TOLD THAT JUNAID THAT CAME IN TO NOT COME IN BECAUSE HE'S OFF THE CASE AND HE CAME IN ANYWAY" (PT SPEAKING OF MAURILIO FLOWERS) INFORMED PT ONCE AGAIN THAT UNTIL THE FAMILY FINDS A NEW PRIMARY PHYSICIAN HURST WILL STILL BE PRIMARY PHYSICIAN. PT VERBALIZED UNDERSTANDING. WHILE GIVING MEDICATIONS THROUGH NG TUBE PT ASKED "ARE YOU SUPPOSED TO USE SCALDING HOT WATER WITH THAT?" I STATED "NO MA'AM YOU ARE NOT, HAS ANYONE BEEN DOING THAT? IF SO PLEASE LET ME KNOW" PT STATED "NO NOBODY HAS, I'M JUST ASKING ARE YOU SUPPOSED TO?" ONCE AGAIN I STATED "NO MA'AM YOU ARE NOT. WOULD YOU LIKE TO FEEL THE CUP THAT I HAVE THE WATER IN, YOU'RE MORE THAN WELCOME TO ENSURE IT'S THE RIGHT TEMPURATURE FOR YOU." PT THEN STATED "NO, I'M FINE. I'VE BEEN WATCHING YOU ANYWAYS." AFTER MEDICTIONS WERE GIVEN PT STATED "YOU DID A GOOD JOB GIVING HIM HIS MEDICINES." NO ACUTE NEEDS OR DISTRESS NOTED AT THIS TIME.
--- NOTE | 2019-10-28 10:12 | NUR ---
RECIEVED PHONE CALL FROM PTS DAUGHTER STATING SHE DID NOT WANT DR CLARK OR DR FLOR DAY SEEING THE PATIENT OR WRITING ANY ORDERS REGARDING PT, AND THAT TOMORROW DR EL WOULD BE HERE TOMORROW TO COVER FOR JEN DAY. PTS DAUGHTER STATED THAT SHE HAS "NO CONFIDENCE IN DR CLARK" AND THAT "DR CLARK HAS BEEN EXTREMLY NEGATIVE TOWARDS US." SHE STATED THEY (THE FAMILY) ARE UPSET THAT THEY WERE TOLD THAT THE PT IS "BRAINDEAD" AND THAT IT IS "CRAZY WHAT COMES OUT OF HER MOUTH." THEY WERE UPSET THAT DR CLARK WANTED PTS CVL DCD AND A CVL PLACED IN THE GROIN BECAUSE OF POSITIVE BLOOD CULTURES WHEN THE PTS PLATELET COUNT YESTERDAY WAS 8 AND THEY WERE INFORMED BY ANOTHER PHYSICIAN THAT PT COULD NOT TOLERATE A CVL TO BE DCD AND A NEW ONE TO BE PLACED BECUASE OF HIS CLOTTING FACTORS. THE DAUGHTER STATED SHE WAS ALSO UPSET THAT DR ZAMAN WAS CONSULTED WITHOUT THEIR CONSENT. PTS DAUGHTER NOTIFIED THAT IT IS NORMAL FOR A PHYSICIAN TO BE CONSULTED WITHOUT CONSENT HOWEVER CONSENTS ARE ALWAYS OBTAINED BEFORE ANY PROCEDURES OR OCCASIONS WHICH MAY REQUIRE CONSENTS. ALSO NOTIFIED DAUGHTER THAT ALTHOUGH THEY PLAN TO HAVE A PRIMARY PHYSICIAN SWITCHED TOMORROW THE PT STILL NEEDS TO BE COVERED BY A PRIMARY PHYSICIAN SUCH DR FLOR DAY UNTIL A DIFFERENT PHYSICIAN TAKES OVER. DAUGHTER ASKED "WELL IN THAT CASE CAN DR CLARK BE OFF THE CASE AND DR IDA CAN TAKE OVER PRIMARY AND MAKE ALL THE CALLS?" NOTIFIED PTS DAUGHTER THAT DR DIA IS A CITY CONTROLLER AND NOT A PRIMARY PHYSICIAN THEREFORE HE CANNOT TAKE OVER PRIMARY. DAUGHTER ASKED "ISN'T DR LEMON AN INTERNALIST?" NOTIFIED DAUGHTER DR LEMON IS ALSO A CITY CONTROLLER WHO IS ALSO CURRENTLY NOT POWER PLANT INSPECTOR. PTS DAUGHTER STATED "IN THAT CASE CAN YOU MAKE SURE THAT ANY NEW ORDER OR ANY NEW CHANGE MADE BY DR CLARK IS MADE KNOWN BY US FIRST BEFORE IS CARRIED OUT, ESPECIALLY WITH THE BIG STUFF?" DAUGHTER WAS ENSURED AT THIS TIME THAT ALL THE "BIG STUFF" AND ANYTHING REQUIRING CONSENT OR A DECISION WOULD DEFINITELY BE CALLED TO NEXT OF KIN FIRST TO ENSURE FAMILY INVOLVEMENT. PTS DAUGHTER STATED SHE FELT BETTER ABOUT THE CONVERSATION. ASSOCIATE PROFESSOR OF SOCIOLOGY NOTIFIED OF THIS WELL.
--- NOTE | 2019-10-28 11:00 | NUR ---
REASSESSMENT COMPLETED PER FLOWSHEET, SEE FLOWSHEET FOR INFORMATION. TURNED PT PER COMFORT. ORAL AND INLINE SUCTIONING COMPLETED, COPIOUS AMOUNTS OF YELLOW AND BLOODY THICK SECRETIONS SUCTIONED. FAMILY AT BEDSIDE, UPDATE GIVEN. NO ACUTE NEEDS OR DISTRES NOTED AT THIS TIME. VSS. WILL CONT TO MONITOR.
--- NOTE | 2019-10-28 13:00 | NUR ---
PT TURNED PER COMFORT. PT FAMILY AT BEDSIDE. INLINE SUCTIONED. FAMILY ASKED ABOUT LABS, LAB NUMBERS GIVEN TO PT FAMILY AND EXPLAINED EACH LEVEL IN GREAT DETAIL. NO ACUTE NEEDS OR DISTRESS NOTED AT THIS TIME. WILL CONT TO MONITOR.
--- NOTE | 2019-10-28 15:00 | NUR ---
REASSESSMENT COMPLETED PER FLOWSHEET, SEE FLOWSHEET FOR INFORMATION. TURNED PT PER COMFORT AND COMPLETED ORAL AND INLINE SUCTIONING. NO ACUTE NEEDS OR DISTRESS NOTED AT THIS TIME. VSS. WILL CONT TO MONITOR.
--- NOTE | 2019-10-28 16:00 | NUR ---
PT FAMILY APPROACHED ME IN FRONT OF PT ROOM ASKING ME TO COME LOOK AT PT. UPON ASSESSMENT PT NECK IS SWOLLEN. STAT CXR COMPLETED. AND AT BEDSIDE. NO NEW ORDERS RECEIVED AT THIS TIME. WILL CONT TO MONITOR.
--- NOTE | 2019-10-28 17:00 | NUR ---
SPOKE WITH FAMILY ABOUT CARE, FAMILY WISHES TO PROCEED WITH FULL CODE. FAMILY AT BEDSIDE. VSS. SAID IT IS OKAY TO CONTINUE USING CVL. WILL CONT TO MONITOR.
--- NOTE | 2019-10-28 19:30 | NUR ---
PT SEDATED, OPENS EYES TO STIMULI, ETT PATENT TO VENT ON A/C, OGT IN PLACE WITH PULMOCARE @ 30 CC/HR, RIGHT IJ INTACT WITH IVF'S INFUSING, SUBCUTANEOUS EMPHYSEMA TO RIGHT NECK, DORAN PATENT TO BSD, RECTAL TUBE IN PLACE DRAINING BROWN LIQUID STOOL, SCD'S TO BILAT LOWER LEGS, VITALS STABLE, WILL CONT TO MONITOR
--- NOTE | 2019-10-28 19:35 | NUR ---
SPOKE WITH FAMILY (, DAUGHTER, SON, AND [id number]) AND THEY ARE ALL IN AGREEMENT THAT THEY WANT TO MAKE PATIENT A DNR. FAMILY STATED THAT THEY WOULD BRING IN THE DNR FORM IN THE AM. FAMILY MADE IT CLEAR THAT THEY STILL WANT TO PROCEED WITH PATIENT CARE IN HOPES THAT HE WILL IMPROVE.
--- NOTE | 2019-10-28 21:15 | NUR ---
DAUGHTER IN LAW PRESENT IN ROOM, PT REMAINS SEDATED WITH NO DISTRESS NOTED, SHE STATES FAMILY DECIDED TO MAKE PT A DNR
--- NOTE | 2019-10-28 23:00 | NUR ---
REPOSTIONED FOR COMFORT, NO CHANGES NOTED, VITALS STABLE
[2019-10-29] VITALS (24 sets, daily range): BP systolic 104–147; BP diastolic 60–80
--- NOTE | 2019-10-29 01:00 | NUR ---
SUCTIONED PRN, THICK YELLOW BLOODY SECRETIONS, REMAINS SEDATED, BRADYCARDIC AT TIMES, WILL CONT TO MONITOR
--- NOTE | 2019-10-29 03:00 | NUR ---
PT SEDATED, NO CHANGES IN STATUS, VITALS STABLE
[2019-10-29 04:57] LABS: BASOPHILS 0.3 % (0-2); EOSINOPHILS 0 % (0-7); HEMATOCRIT 25.4 % (42.0-54.0); HEMOGLOBIN 8.2 g/dL (13.5-17.5); IMMATURE GRANULOCYTES 1.3 % (0-5); LYMPHOCYTES 7.7 % (15-50); MCH 31.1 pg (26.0-34.0); MCHC 32.3 g/dL (31.0-37.0); MCV 96.2 fL (80.0-100.0); MONOCYTES 4.3 % (2-11); NEUTROPHILS 86.4 % (40-80); RBC 2.64 10x6/uL (4.20-6.10); RDW 17.9 % (11.5-14.5)
[2019-10-29 04:58] LABS: ALBUMIN 2.9 g/dL (3.4-5.0); ALKALINE PHOSPHATASE 128 U/L (46-116); ALT (SGPT) 119 U/L (10-68); BILIRUBIN - TOTAL 4.47 mg/dL (0.2-1.3); CALC OSMOLALITY 297 mosm/kg (275-300); CALCIUM 8.6 mg/dL (8.5-10.1); CARBON DIOXIDE 34.4 mmol/L (21.0-32.0); CHLORIDE - SERUM 103 mmol/L (98-107); CREATININE - SERUM 0.6 mg/dL (0.6-1.3); GLUCOSE 241 mg/dL (74-106); MAGNESIUM - SERUM 2.4 mg/dL (1.8-2.4); POTASSIUM - SERUM 3.4 mmol/L (3.5-5.1); PROTEIN - SERUM 5.1 g/dL (6.4-8.2); SODIUM 142 mmol/L (136-145); UREA NITROGEN 33 mg/dL (7-18); eGFR NON AFRICAN AMERICAN > 90 mL/min (90-120)
[2019-10-29 05:01] LABS: PHOSPHOROUS 2.7 mg/dL (2.5-4.9); WBC 3.8 10x3/uL (4.8-10.8)
[2019-10-29 05:03] LABS: PLATELET COUNT 18 10x3/uL (130-400)
[2019-10-29 05:10] LABS: APTT 33.9 SECONDS (22.8-39.4); INR 2.39 (0.85-1.17); PROTIME 25.4 SECONDS (11.6-15.0)
--- NOTE | 2019-10-29 05:15 | NUR ---
pt bathed per staff, pt completely flaccid, at bedside post bath for a few seconds, states she was just checking on him, vitals stable
--- NOTE | 2019-10-29 10:29 | NUR ---
0700 PT RECIEVED SEDATED ON VENT ETT AND OGT SECURED R IJ CVL DRESSING CDI SEE IV FLOWSHEET, DORAN AND RT PATENT AND DRAINING, SEE SHIFT ASSESSMENT FOR DETAILS 0900 PT FAMILY STATED THEY WANTED PT DNR, DR MURILLO IN UNIT AND SPOKE WITH FAMILY AND ORDERED DNR STATUS, AM MEDS GIVEN 1000 DR LEMON IN UNIT ORDERS FOR CPAP TRAILS AND TO TURN PROPOFOL OFF/
--- NOTE | 2019-10-29 11:17 | NUR ---
Nutrition follow-up: Pt intubated, sedated; CPAP trial today Labs reviewed Pulmocare @ 45 ml/hr via NGT Labs reviewed Wt: 213# Pitting edema to all extremeties RDN following.
--- NOTE | 2019-10-29 11:38 | NUR ---
PTS FAMILY REQUESTED ANOTHER MD, DR PRUITT AND MARGARET KU FOR [facility], BOTH AGREED TO NOT ACCEPT PT, FAMILY NOTIFIED WITH CHARGE NURSE
[2019-10-29 15:09] LABS: FACTOR VIII - APTT 39.2 sec (22.9-30.2); FACTOR VIII - APTT 1:1 60 MIN 27.3 sec (22.9-30.2); FACTOR VIII - APTT 1:1 SALINE >121.9 sec (Not Estab.); FACTOR VIII ACTIVITY 203 % (56-140)
--- NOTE | 2019-10-29 18:40 | NUR ---
1100 REPOSITIONED 1300 REPOSITONED, FAMILY HERE FOR VISITATION, PT CPAP TRIALS FOR APPROX 30 MINUTES THEN RR ELEVATED AND WAS PLACED BACK ON A RATE BY RT, PROPOFOL RESTARTED 1500 REPOSITIONED 1700 RECTAL TUBE BAG CHANGED PT TURNED/REPOSITIONED AND HAD ORAL CARE Q2 HOURS AND PRN, FAMILY DENY QUESTIONS, WILL CONTINUE TO MONITOR
--- NOTE | 2019-10-29 19:00 | NUR ---
REPORT RECEIVED. PT SEDATED ON VENT. OGT IN PLACE TO PULMOCARE AT 45 ML/HR. DORAN IN PLACE, RT IJ CVL INFUSING, SEE IV FLOWSHEET. ASSESSMENT COMPLETED, SEE FLOWSHEET. VITALS STABLE, NO ACUTE DISTRESS NOTED. WILL CONTINUE TO MONITOR.
--- NOTE | 2019-10-29 21:00 | NUR ---
PM MEDS GIVEN WITHOUT DIFFICULTY, FAMILY MEMBER ASSISTED WITH REPOSITIONING. WILL CONTINUE TO MONITOR.
--- NOTE | 2019-10-29 23:00 | NUR ---
PT SEDATED ON VENT, REPOSITIONED FOR COMFORT. NO ACUTE DISTRESS NOTED.
[2019-10-30] VITALS (23 sets, daily range): BP systolic 111–152; BP diastolic 62–81
--- NOTE | 2019-10-30 01:00 | NUR ---
PT SEDATED ON VENT. REPOSITIONED FOR COMFORT. NO ACUTE DISTRESS NOTED. WILL CONTINUE TO MONITOR.
--- NOTE | 2019-10-30 03:00 | NUR ---
PT SEDATED, REPOSITIONED FOR COMFORT.
--- NOTE | 2019-10-30 05:00 | NUR ---
PT REPOSITIONED FOR COMFORT, SEDATED ON VENT. SUCTIONED NEEDED. WILL CONTINUE TO MONITOR.
[2019-10-30 06:11] LABS: ALBUMIN 2.9 g/dL (3.4-5.0); ALKALINE PHOSPHATASE 182 U/L (46-116); ALT (SGPT) 111 U/L (10-68); BILIRUBIN - TOTAL 3.51 mg/dL (0.2-1.3); CALC OSMOLALITY 301 mosm/kg (275-300); CALCIUM 8.8 mg/dL (8.5-10.1); CARBON DIOXIDE 31.9 mmol/L (21.0-32.0); CHLORIDE - SERUM 104 mmol/L (98-107); CREATININE - SERUM 0.6 mg/dL (0.6-1.3); GLUCOSE 277 mg/dL (74-106); POTASSIUM - SERUM 3.5 mmol/L (3.5-5.1); PROTEIN - SERUM 5.3 g/dL (6.4-8.2); SODIUM 141 mmol/L (136-145); eGFR NON AFRICAN AMERICAN > 90 mL/min (90-120)
[2019-10-30 06:12] LABS: UREA NITROGEN 42 mg/dL (7-18)
[2019-10-30 06:30] LABS: HEMATOCRIT 26.6 % (42.0-54.0); HEMOGLOBIN 8.4 g/dL (13.5-17.5); MCH 30.8 pg (26.0-34.0); MCHC 31.6 g/dL (31.0-37.0); MCV 97.4 fL (80.0-100.0); MEAN PLATELET VOLUME 11.5 fL (7.4-10.4); RBC 2.73 10x6/uL (4.20-6.10); RDW 17.7 % (11.5-14.5)
[2019-10-30 06:34] LABS: PLATELET COUNT 18 10x3/uL (130-400); WBC 5.7 10x3/uL (4.8-10.8)
--- NOTE | 2019-10-30 07:00 | NUR ---
PT RESTING IN BED. NO VISIBLE SIGNS OF DISTRESS NOTED. SHIFT ASSESSMENT COMPLETED. PT HR IN THE LOW 60'S. MOUTH IS BLOODY. ORAL CARE PROVIDED. WILL CONTINUE TO MONITOR
--- NOTE | 2019-10-30 08:00 | NUR ---
PT HR 59. HOLDING CARDIAC MEDS. WILL CONTINUE TO MONITOR
--- NOTE | 2019-10-30 09:00 | NUR ---
PT RESTING IN BED. SEDATION STOPPED. WILL CONTINUE TO MONITOR. FAMILY AT BEDSIDE.
--- NOTE | 2019-10-30 10:15 | NUR ---
DR LEMON AT BEDSIDE. ORDER RECEIVED TO STOP D5W INFUSION. STARTED PT ON PSV TRIAL. WILL CONTINUE TO MONITOR
[2019-10-30 10:37] LABS: BASOPHILS 2 % (0-2); EOSINOPHILS 4 % (0-7); LYMPHOCYTES 2 % (15-50); MONOCYTES 14 % (2-11); NEUTROPHILS 59 % (40-80); PLATELET ESTIMATE DECREASED; TOXIC GRANULATION OCC
[2019-10-30 10:38] LABS: ANISOCYTOSIS OCC; HYPOCHROMASIA OCC
--- NOTE | 2019-10-30 11:00 | NUR ---
PT RESTING IN BED COMFORTABLY. NO VISIBLE SIGNS OF DISTRESS NOTED. REASSESSMENT COMPLETED. WILL CONTINUE TO MONITOR
--- NOTE | 2019-10-30 13:00 | NUR ---
PT RESTING IN BED. NO ACUTE SIGNS OF DISTRESS NOTED. WILL CONTINUE TO MONITOR
--- NOTE | 2019-10-30 15:00 | NUR ---
PT RESTING IN BED. BACK ON ASSIST CONTROL ON VENT. PT BECAME TACHYPNIC. NO ACUTE SIGNS OF DISTRESS NOTED. REASSESSMENT COMPLETED. WILL CONTINUE TO MONITOR
--- NOTE | 2019-10-30 17:00 | NUR ---
PT RESTING IN BED. FAMILY AT BEDSIDE. NO VISIBLE SIGNS OF DISTRESS NOTED. WILL CONTINUE TO MONITOR
--- NOTE | 2019-10-30 19:00 | NUR ---
REPORT RECEIVED. PT SEDATED, ON VENT. RECTAL TUBE IN PLACE DRAINING LOOSE STOOL, DORAN IN PLACE. RT IJ CVL INFUSING, SEE IV FLOWSHEET. ASSESSMENT COMPLETED, SEE FLOWSHEET. NGT TO PULMOCARE AT 45ML/HR. NO ACUTE DISTRESS NOTED AT THIS TIME. WILL CONTINUE TO MONITOR.
--- NOTE | 2019-10-30 21:00 | NUR ---
PM MEDS TAKEN WITHOUT DIFFICULTY. NO ACUTE DISTRESS NOTED, WILL CONTINUE TO MONITOR.
--- NOTE | 2019-10-30 23:00 | NUR ---
PT SEDATED, ON VENT. NO ACUTE DISTRESS NOTED. REPOSITIONED FOR COMFORT.
[2019-10-31] VITALS (19 sets, daily range): BP systolic 85–146; BP diastolic 44–85
--- NOTE | 2019-10-31 01:00 | NUR ---
PT SEDATED, ON VENT. NO ACUTE DISTRESS NOTED.
--- NOTE | 2019-10-31 03:00 | NUR ---
PT SEDATED ON VENT. REPOSITIONED FOR COMFORT.
--- NOTE | 2019-10-31 05:00 | NUR ---
PT SEDATED ON VENT. CHG BATH GIVEN, COMPLETE LINEN CHANGE. NO ACUTE DISTRESS NOTED.
[2019-10-31 06:44] LABS: HEMATOCRIT 30.8 % (42.0-54.0); HEMOGLOBIN 9.6 g/dL (13.5-17.5); MCH 31.2 pg (26.0-34.0); MCHC 31.2 g/dL (31.0-37.0); MEAN PLATELET VOLUME 12.1 fL (7.4-10.4); RBC 3.08 10x6/uL (4.20-6.10)
[2019-10-31 06:46] LABS: PLATELET COUNT 46 10x3/uL (130-400)
[2019-10-31 06:55] LABS: ALBUMIN 3.5 g/dL (3.4-5.0); ALKALINE PHOSPHATASE 247 U/L (46-116); ALT (SGPT) 121 U/L (10-68); CALCIUM 9.2 mg/dL (8.5-10.1); CARBON DIOXIDE 29.8 mmol/L (21.0-32.0); CHLORIDE - SERUM 105 mmol/L (98-107); CREATININE - SERUM 0.6 mg/dL (0.6-1.3); GLUCOSE 290 mg/dL (74-106); POTASSIUM - SERUM 3.8 mmol/L (3.5-5.1); SODIUM 144 mmol/L (136-145); eGFR NON AFRICAN AMERICAN > 90 mL/min (90-120)
--- NOTE | 2019-10-31 07:00 | NUR ---
BEDSIDE REPORT RECEIVED. SHIFT ASSESSMENT COMPLETED PER FLOWSHEET, SEE FLOWSHEET FOR INFORMATION. NO ACUTE NEEDS OR DISTRESS NOTED AT THIS TIME. REDREW THE A.M LABS. WILL CONT TO MONITOR.
[2019-10-31 07:11] LABS: CALC OSMOLALITY 312 mosm/kg (275-300); UREA NITROGEN 54 mg/dL (7-18)
[2019-10-31 07:48] LABS: WBC 26.8 10x3/uL (4.8-10.8)
--- NOTE | 2019-10-31 09:00 | NUR ---
0900 MEDICATIONS GIVEN. PT FAMILY AT BEDSIDE, UPDATE GIVEN. NO ACUTE NEEDS OR DISTRESS NOTED AT THIS TIME. WILL CONT TO MONITOR.
--- NOTE | 2019-10-31 09:25 | NUR ---
PT HR 152, NOTIFED. ORDERED FENTANYL 25MCG STAT. INFORMED THAT IT IS AGAISNT POLICY TO GIVE IV PUSH FENTANYL. INSISTED ON 25 MCG FENTANYL IV. [employer] HR DEVELOPER NOTIFED. POLICY SHOWN TO , NO NEW ORDERS. ANESTESIOLOGY PAGED, ETA 15 MINUTES. NOTIFED, NO NEW ORDERS. NURSE AT BEDSIDE. WILL CONT TO MONITOR.
--- NOTE | 2019-10-31 09:53 | NUR ---
NEW ORDER RECEIVED. HR 160, METOPROLOL IV GIVEN. HR DECREASED TO 112. NOTIFIED. WILL CONT TO MONITOR.
--- NOTE | 2019-10-31 11:00 | NUR ---
AT BEDSIDE, NEW ORDERS RECEIVED. REASSESSMENT COMPLETED PER FLOWSHEET, SEE FLOWSHEET FOR INFORMATION. WILL CONT TO MONITOR. 500 ML NS FLUID BOLUS ORDERED PER .
[2019-10-31 12:01] LABS: LYMPHOCYTES 6 % (15-50); MONOCYTES 7 % (2-11); NEUTROPHILS 62 % (40-80); PLATELET ESTIMATE DECREASED
[2019-10-31 12:02] LABS: ROULEAUX OCC
--- NOTE | 2019-10-31 13:00 | NUR ---
SPOKE WITH PT FAMILY, FAMILY ASKED ABOUT [facility]SPORT. NOTIFIED MAURILIO SHEEP CLIPPER OF FAMILY WISHES. WILL CONT TO MONITOR.
--- NOTE | 2019-10-31 13:19 | NUR ---
AT BEDSIDE, SPEAKING WITH FAMILY. WILL CONT TO MONITOR.
--- NOTE | 2019-10-31 13:34 | NUR ---
Nutrition follow-up: Intubated, sedated Pulmocare @ 45 ml/hr per Dr. Castaneda order Labs reviewed Wt: 195# RDN following.
--- NOTE | 2019-10-31 13:55 | NUR ---
3RD DOSE OF IV METOPROLOL GIVEN PER ORDERS. WILL CONT TO MONITOR.
--- NOTE | 2019-10-31 15:00 | NUR ---
REASSESSMENT COMPLETED PER FLOWSHEET, SEE FLOWSHEET FOR INFORMATION. NO ACUTE NEEDS OR DISTRESS NOTED AT THIS TIME. PT TURNED PER COMFORT. WILL CONT TO MONITOR.
--- NOTE | 2019-10-31 15:30 | NUR ---
SPOKE WITH PT FAMILY ABOUT COMFORT CARE, PT FAMILY VERBALIZED UNDERSTANDING AND SAID "I THINK THAT IS WHAT HE WOULD WANT." EXPLAINED TO PT FAMILY THAT THE END GOAL IS COMFORT INTO , PT FAMILY VERBALIZED UNDERSTANDING ONCE AGAIN. AND MAURILIO FLOWERS INFORMED. NEW ORDERS RECEIVED. WILL CONT TO MONITOR.
--- NOTE | 2019-10-31 16:03 | MORECARE ---
CASE MANAGEMENT DISCHARGE SUMMARY PATIENT: DAISHA MEYER UNIT: [id number] ADM DATE: 09/26/19 AGE: 59 : 56 SEX: M ROOM/BED: D.2310 AUTHOR: NIKA,DOC PHYSICIAN: REFERRING PHYSICIAN: JAMES CLARK MD DATE OF SERVICE: 10/31/19 Discharge Plan Patient Name: DAISHA MEYER Facility: [facility]:[place] : 1960 Planned Disposition: Home Anticipated Discharge Date: Discharge Date: Expected LOS: Initial Reviewer: [email or web address] Initial Review Date: 10/01/2019 Generated: 10/31/19 5:03 pm Comments DCP- Discharge Planning Updated by [email or web address]: Ida Schrader on 10/31/19 3:[address] CM received notification that Dr. Nazario this am had recommended that patient transfer to [facility] for higher level of care d/t his liver problems. CM contacted Ron CONTRACT POST OFFICE CLERK with Dr. Clark and he agreed that would be fine. CM asked who to call for P2P upon acceptance to [facility]. Dr. Clark [phone]. Nursing and CM spoke with family and they do agree for transfer. Dr. Ayon and family agree that at this time isn't stable enough for transfer of any kind. CM will continue to follow and assist as needed with discharge planning / needs DCP- Discharge Planning Updated by [email or web address]: Ida Schrader on 10/31/19 2:[address] LATE ENTRY 10/29/19 CM meet with daughter in law Jenny per her request. She stated that over weekend there was a miss understanding with Dr. Clark and the family has requested another physician to take over the patient's care. She stated that they have contacted Dr. Celeste's office to see if he would care for patient. Jenny stated that she understood the physicians not wanting to take his case because he has so much going on with him. Family concerned that patient may not be getting the care he deserves. CM assured family that everyone is looking out for the patient's best interest. CM suggested that since patient has multiple specialist following him that one of them may become his PCP while in hospital. Jenny stated that she would talk with the rest of the family but they most likely will check with Dr. Castaneda / Dr. Ayon. CM explained that Rowena with LTACH at [facility] had called earlier this am and stated with his insurance they would not be able to take him with a vent. Family seemed to be relieved after 45min conversation. DCP- Discharge Planning Updated by [id number]: Ida Schrader on 10/26/19 5:[address] LATE ENTRY 10/25/18 CM received notification of LTACH request. CM spoke with patient' spouse and son regarding LTACH placement. HERIBERTO signed for [facility] in [place]. Referral packet faxed over. CM awaiting to hear back from LTACH regarding referral. CM will continue to follow and assist as needed with discharge planning / needs DCP- Discharge Planning Updated by [id number]: Ida Schrader on 10/01/19 4:[address] Patient Name: DAISHA MEYER Admission Status: ER Accout number: [id number] Admission Date: 09-26-2019 : 1960 Admission Diagnosis: Attending: NADIRA Current LOS: 5 Anticipated DC Date: Planned Disposition: Home Primary Insurance: [place] [employer] [place] Discharge Planning Comments: CM met with patient's spouse Paola at bedside after explaining CM role and obtaining verbal consent. Patient lives at home with his where he is independent with his care and plans to return there upon discharge. Patient feels this would be a safe discharge. CM discussed availability / needs of home health and medical equipment. Patient's uncertain of any discharge needs at this time. Patient will have his family drive him home upon discharge. CM will continue to follow and assist as needed with discharge planning / needs. Roller Coaster Engineer: Ida Schrader DCPIA - Discharge Planning Initial Assessment Updated by [id number]: Ida Schrader on 10/01/19 5:03 pm * How many steps to enter\exit or inside your home? * PCP EDUARDO * Pharmacy [facility] [address] * Preadmission Environment Home with Family * ADLs Independent * Equipment None * List name and contact numbers for known caregivers / representatives who currently or will assist patient after discharge: PAOLA MEYER - SPOUSE - [phone] * Verbal permission to speak to the caregivers and representatives has been obtained from the patient. N/A * Community resources currently utilized None * Additional services required to return to the preadmission environment? No * Can the patient safely return to the preadmission environment? Yes * Has this patient been hospitalized within the prior 30 days at any hospital? No Coverage Notice Reviewer: [email or web address] Troy Schrader Notice Issued Date-Time: 10/25/2019 12:55 Notice Type: Patient Choice Letter Notice Delivered To: Family Member Relationship to Patient: Spouse Phys Asst Name: PAOLA MEYER Delivery Method: HAND - Hand Delivered Taylor Days: Prior Verbal Notification: Recipient Understood Notice: Yes Recipient Signature: Yes Med Rec Note Co-signed by Attending: Coverage Notice Comment: Last DP export: 10/26/19 5:26 pm Patient Name: DAISHA MEYER Page [id number] at 1603 All edits/amendments must be made on the electronic document DICTATION DATE: 10/31/191602 BAR HOSTESS: REYNOLD 10/31/19 160 RPT#: [id number] DC DATE: STATUS: ADM IN [facility] [address] [place] [address] END OF REPORT
--- NOTE | 2019-10-31 17:00 | NUR ---
PT FAMILY AT BEDSIDE. WAITING ON PT DAUGHTER FROM [place] TO GET HERE. WILL CONT TO MONITOR.
--- NOTE | 2019-10-31 18:24 | NUR ---
spoke with juan
--- NOTE | 2019-10-31 18:48 | NUR ---
PT TERMINALLY EXTUBATED. COMFORT CARE GIVEN TO PT AND FAMILY. WILL CONT TO MONITOR.
--- NOTE | 2019-10-31 18:53 | NUR ---
PT . CALLING PROVIDER TO PRONOUNCE TIME OF .
--- NOTE | 2019-10-31 18:53 | NUR ---
HOME CALLED. WILL CONT TO MONITOR.
--- NOTE | 2019-11-01 12:38 | MORECARE ---
CASE MANAGEMENT DISCHARGE SUMMARY PATIENT: DAISHA MEYER UNIT: [id number] ADM DATE: 09/26/19 AGE: 59 : 56 SEX: M ROOM/BED: D.2310 AUTHOR: NIKA,DOC PHYSICIAN: REFERRING PHYSICIAN: JAMES CLARK MD DATE OF SERVICE: 11/01/19 Discharge Plan Patient Name: DAISHA MEYER Facility: [facility]:[place] : 1960 Planned Disposition: Home Anticipated Discharge Date: Discharge Date: 10/31/2019 Expected LOS: Initial Reviewer: [id number] Initial Review Date: 10/01/2019 Generated: 11/01/19 1:37 pm DCP- Discharge Planning Updated by [id number]: Ida Schrader on 10/31/19 3:[address] CM received notification that Dr. Nazario this had recommended that patient transfer to [facility] for higher level of care d/t his liver problems. CM contacted Ron FREIGHT SHIPPING AGENT with Dr. Clark and he agreed that would be fine. CM asked who to call for P2P upon acceptance to [facility]. Dr. Clark [phone]. Nursing and CM spoke with family and they do agree for transfer. Dr. Aoyn and family agree that at this time isn't stable enough for transfer of any kind. CM will continue to follow and assist as needed with discharge planning / needs DCP- Discharge Planning Updated by [email or web address]: Ida Schrader on 10/31/19 2:[address] LATE ENTRY 10/29/19 CM meet with daughter in law Jenny per her request. She stated that over weekend there was a miss understanding with Dr. Clark and the family has requested another physician to take over the patient's care. She stated that they have contacted Dr. Celeste's office to see if he would care for patient. Jenny stated that she understood the physicians not wanting to take his case because he has so much going on with him. Family concerned that patient may not be getting the care he deserves. CM assured family that everyone is looking out for the patient's best interest. CM suggested that since patient has multiple specialist following him that one of them may become his PCP while in hospital. Jenny stated that she would talk with the rest of the family but they most likely will check with Dr. Castaneda / Dr. Ayon. CM explained that Rowena with LTACH at [facility] had called earlier this am and stated with his insurance they would not be able to take him with a vent. Family seemed to be relieved after 45min conversation. DCP- Discharge Planning Updated by [id number]: Ida Schrader on 10/26/19 5:[address] LATE ENTRY 10/25/18 CM received notification of LTACH request. CM spoke with patient' spouse and son regarding LTACH placement. [facility] [place]. Referral packet faxed over. CM awaiting to hear back from LTACH regarding referral. CM will continue to follow and assist as needed with discharge planning / needs DCP- Discharge Planning Updated by [id number]: Ida Schrader on 10/01/19 4:[address] Patient Name: DAISHA MEYER Admission Status: ER Accout number: [id number] Admission Date: 09-26-2019 : 1960 Admission Diagnosis: Attending: NADIRA Current LOS: 5 Anticipated DC Date: Planned Disposition: Home Primary Insurance: [place] [employer] [place] Discharge Planning Comments: CM met with patient's spouse Paola at bedside after explaining CM role and obtaining verbal consent. Patient lives at home with his where he is independent with his care and plans to return there upon discharge. Patient feels this would be a safe discharge. CM discussed availability / needs of home health and medical equipment. Patient's uncertain of any discharge needs at this time. Patient will have his family drive him home upon discharge. CM will continue to follow and assist as needed with discharge planning / needs. Panel Builder: Ida Schrader DCPIA - Discharge Planning Initial Assessment Updated by [email or web address]: Ida Schrader on 10/01/19 5:03 pm * How many steps to enter\exit or inside your home? * PCP EDUARDO * Pharmacy [facility] [address] * Preadmission Environment Home with Family * ADLs Independent * Equipment None * List name and contact numbers for known caregivers / representatives who currently or will assist patient after discharge: PAOLA MEYER - SPOUSE - [phone] * Verbal permission to speak to the caregivers and representatives has been obtained from the patient. N/A * Community resources currently utilized None * Additional services required to return to the preadmission environment? No * Can the patient safely return to the preadmission environment? Yes * Has this patient been hospitalized within the prior 30 days at any hospital? No Coverage Notice Reviewer: [id number] Troy Schrader Notice Issued Date-Time: 10/25/2019 12:55 Notice Type: Patient Choice Letter Notice Delivered To: Family Member Relationship to Patient: Spouse Gandy Dancer Name: PAOLA MEYER Delivery Method: HAND - Hand Delivered Taylor Days: Prior Verbal Notification: Recipient Understood Notice: Yes Recipient Signature: Yes Med Rec Note Co-signed by Attending: Coverage Notice Comment: Last DP export: 10/31/19 3:03 pm Patient Name: DAISHA MEYER Page [id number] at 1238 All edits/amendments must be made on the electronic document DICTATION DATE: 11/01/19 1237 PROGRAM DIRECTOR/TRAFFIC DIRECTOR: REYNOLD 11/01/19 1237 RPT#: [id number] DC DATE:10/31/19 STATUS: DIS IN [facility] [address] [place] [address] END OF REPORT
== END 2019-10-31 19:20 | DRG 207 ==
LOC: D.ER 18:08 → D.M2 20:11 → D.ICU 20:11
PROVIDERS: Family Medicine; Internal Medicine; Internal Medicine Gastroenterology; Internal Medicine Pulmonary Disease; Legal Medicine; ADMIT Emergency Medicine; ATTEND Emergency Medicine
PROC: 5A09457 Assistance with Respiratory Ventilation, 24-96 Consecutive Hours, Continuous Positive Airway Pressure (ICD-10-PCS; 2019-09-29)
PROC: 5A1955Z Respiratory Ventilation, Greater than 96 Consecutive Hours (ICD-10-PCS; principal; 2019-09-30)
PROC: 0BH17EZ Insertion of Endotracheal Airway into Trachea, Via Natural or Artificial Opening (ICD-10-PCS; 2019-09-30)
PROC: 05HM33Z Insertion of Infusion Device into Right Internal Jugular Vein, Percutaneous Approach (ICD-10-PCS; 2019-10-01)
PROC: 5A1955Z Respiratory Ventilation, Greater than 96 Consecutive Hours (ICD-10-PCS; 2019-10-15)
PROC: 0BH17EZ Insertion of Endotracheal Airway into Trachea, Via Natural or Artificial Opening (ICD-10-PCS; 2019-10-15)
DX: J18.9 Pneumonia, unspecified organism (principal); J96.01 Acute respiratory failure with hypoxia; I50.33 Acute on chronic diastolic (congestive) heart failure; A41.9 Sepsis, unspecified organism; R40.2124 Coma scale, eyes open, to pain, 24 hours or more after hospital admission; R40.2214 Coma scale, best verbal response, none, 24 hours or more after hospital admission; J96.02 Acute respiratory failure with hypercapnia; N17.9 Acute kidney failure, unspecified; I48.20 Chronic atrial fibrillation, unspecified; J44.0 Chronic obstructive pulmonary disease with (acute) lower respiratory infection; J44.1 Chronic obstructive pulmonary disease with (acute) exacerbation; E72.20 Disorder of urea cycle metabolism, unspecified; E87.0 Hyperosmolality and hypernatremia; G72.81 Critical illness myopathy; I31.9 Disease of pericardium, unspecified; E87.4 Mixed disorder of acid-base balance; T79.7XXA Traumatic subcutaneous emphysema, initial encounter; D68.9 Coagulation defect, unspecified; E87.2 Acidosis; Z66 Do not resuscitate; G43.909 Migraine, unspecified, not intractable, without status migrainosus; I11.0 Hypertensive heart disease with heart failure; I25.10 Atherosclerotic heart disease of native coronary artery without angina pectoris; Z72.0 Tobacco use; I08.1 Rheumatic disorders of both mitral and tricuspid valves; D64.9 Anemia, unspecified; Z91.19 Patient's noncompliance with other medical treatment and regimen; K74.60 Unspecified cirrhosis of liver; L81.8 Other specified disorders of pigmentation; K72.90 Hepatic failure, unspecified without coma; R60.1 Generalized edema; G47.33 Obstructive sleep apnea (adult) (pediatric); E78.5 Hyperlipidemia, unspecified; D69.6 Thrombocytopenia, unspecified; E87.6 Hypokalemia; R40.2354 Coma scale, best motor response, localizes pain, 24 hours or more after hospital admission